=== PATIENT | male | born 1955 | race Caucasian/White ===

== ENCOUNTER → 2016-03-27 | Outpatient (CLI) | payer OTHER ==
[~2016-03-27] MED LIST: AMIT25TA PO; BACL10TA2 PO; LISI10TA4 PO; MOBI7.5T10 PO; NEUR400C PO; PANT40TA2 PO; SERT-141 PO; TIZA4CAP3 PO; ZOFR20TA PO
--- NOTE | 2016-03-27 11:46 | REP ---
Chest two views HISTORY: Pneumonia Comparison: 11/06/2013 The lungs are clear. The heart is normal in size. The pulmonary vasculature is normal in appearance. The bony structure is intact. IMPRESSION: No acute disease. Signed by Pepito Madison MD 03/27/2016 11:37 A
--- NOTE | 2016-03-27 12:18 | REP ---
LEFT SHOULDER, THREE VIEWS: HISTORY: Pneumonia. There is no acute fracture or dislocation. The joint spaces are normal in appearance. IMPRESSION: There is no acute fracture or dislocation. Signed by Pepito Madison MD 03/27/2016 12:37 P
== END ==
LOC: M RAD 10:55
PROVIDERS: ATTEND Family Medicine
DX: J15.9 Unspecified bacterial pneumonia (principal); M12.812 Other specific arthropathies, not elsewhere classified, left shoulder

== ENCOUNTER → 2016-04-01 | Outpatient (CLI) | payer OTHER ==
[2016-04-01 13:43] LABS: FOLATE 12.6 NG/ML
== END ==
LOC: M LAB 11:09
PROVIDERS: ATTEND Psychiatry & Neurology Neurology
DX: R25.1 Tremor, unspecified (principal); E07.9 Disorder of thyroid, unspecified; Z77.018 Contact with and (suspected) exposure to other hazardous metals

== ENCOUNTER → 2016-04-10 | Outpatient (CLI) | payer OTHER ==
--- NOTE | 2016-04-10 13:06 | REP ---
ORBIT, TWO VIEWS: HISTORY: Foreign body. There is no acute fracture or bone lesion. The sinuses are clear. Two 1.2 mm metallic densities are present overlying the left temporal bone. There is no radiopaque intraorbital foreign body. IMPRESSION: There is no radiopaque intraorbital foreign body. Signed by Pepito Madison MD 04/10/2016 01:10 P
== END ==
LOC: M RAD 12:00
PROVIDERS: ATTEND Psychiatry & Neurology Neurology
DX: T15.91XA Foreign body on external eye, part unspecified, right eye, initial encounter (principal); T15.92XA Foreign body on external eye, part unspecified, left eye, initial encounter; X58.XXXA Exposure to other specified factors, initial encounter; Y93.9 Activity, unspecified; Y92.9 Unspecified place or not applicable; Y99.8 Other external cause status

== ENCOUNTER 2016-04-30 10:21 | Emergency (ER) | payer OTHER ==
[2016-04-30 11:28] LABS: BASO % 0.4 % (0.0-1.0); EOS % 0.3 % (0.0-3.0); LARGE UNSTAINED CELL # 0.1 K/mm3 (0.0-0.4); LARGE UNSTAINED CELL % 1.7 % (0.0-4.0); LYMPH # 0.6 K/mm3 (1.5-4.5); LYMPH % 7.5 % (24.0-44.0); MEAN CORPUSCULAR HEMOGLOBIN 31.6 pg (27.0-33.0); MEAN CORPUSCULAR HGB CONC 34.3 g/dl (32.0-36.5); MEAN CORPUSCULAR VOLUME 92.1 fl (80.0-96.0); MONO # 0.3 K/mm3 (0.0-0.8); MONO % 4.6 % (0.0-5.0); NEUTROPHILS # 6.3 K/mm3 (1.8-7.7); NEUTROPHILS % 85.5 % (36.0-66.0); PLATELET COUNT, AUTOMATED 202 k/mm3 (150-450); RED CELL DISTRIBUTION WIDTH 13.4 % (11.5-14.5); WHITE BLOOD COUNT 7.4 K/mm3 (4.0-10.0)
[2016-04-30 11:37] LABS: INR 1.15
--- NOTE | 2016-04-30 11:40 | REP ---
Portable chest x-ray: Single view. History: Cough. Comparison study March 27, 2016. Findings: EKG electrodes are seen. There is a zone of linear opacity in the right base. This may be plate-like atelectasis. Remaining lung wagoner are clear. Pleural angles are sharp. Heart is not enlarged. Pulmonary vasculature is not increased. No bony abnormality is seen. Impression: Linear plate-like atelectasis right base. Otherwise no acute disease. Signed by Darrion Cunha MD 04/30/2016 12:25 P
[2016-04-30 11:43] LABS: ALBUMIN 3.7 GM/DL (3.2-5.2); ALBUMIN/GLOBULIN RATIO 1.12 (1.00-1.93); BILIRUBIN,DIRECT 0.2 MG/DL (0.0-0.2); CREATININE FOR GFR 1.41 MG/DL (0.70-1.30); GLOMERULAR FILTRATION RATE 54.6 (>49)
[2016-04-30] MEDS ORDERED: LevoFLOXacin 500 MG TABLET As Ordered ONE (14:25)
--- NOTE | 2016-04-30 14:35 | EDDOCDS ---
Physician Documentation [facility] Name: Filippo Sung Age: 60 yrs Sex: Male : 1955 Arrival Date: 04/30/2016 Time: 10:21 Bed 14 Private MD: Grayson Brooks Disposition: 04/30/16 14:23 Discharged to Home/Self Care. Impression: Fever, unspecified, Pneumonia due to other specified bacteria. - Condition is Stable. - Discharge Instructions: Fever, Adult, Pneumonia, Adult, [id number]. - Prescriptions for Doxycycline Hyclate 100 mg Oral Tablet - take 1 tablet by ORAL route every 12 hours; 20 tablet. - Medication Reconciliation, Local Pharmacy Hours form. - Follow up: Grayson Brooks; When: Call to arrange an appointment; Reason: Continuance of care. - Problem is new. - Symptoms have improved. Historical: - Allergies: No known drug Allergies; - Home Meds: 1. gabapentin 600 mg oral tab 3 times per day 2. baclofen 20 mg Oral tab 1 tab 4 times per day 3. sertraline 50 mg oral tab 1 tab once daily 4. tizanidine 4 mg oral cap 1 cap 3 times per day 5. pantoprazole 40 mg oral TbEC 1 tab once daily 6. ondansetron HCl 4 mg Oral tab every 4 hours 7. amitriptyline 25 mg Oral tab 1 tab once daily 8. meloxicam 15 mg oral tab 1 tab once daily - PMHx: Arthritis; Chronic Back pain; Depression; GERD; - PSHx: lymph node removal; right middle finger trigger release and scar tissue removal; - Social history: Smoking status: Patient uses tobacco products, heavy tobacco smoker. No barriers to communication noted, The patient speaks fluent Dutch. - Family history: Not pertinent. - : The pt / caregiver states he / she is not on anticoagulants. Home medication list is obtained from the patient. - Exposure Risk Screening:: None identified. Vital Signs: 04/30 10:23 BP 93 / 58; Pulse 98; Resp 16; Temp 101.4(O); Pulse Ox 92% on R/A; Weight 75.75 kg / elp 167 lbs (R); Height 5 ft. 8 in. (172.72 cm) (R); 10:53 BP 90 / 54 (auto/); srm 10:55 Pulse 84 MON; Resp 18; Pulse Ox 95% on R/A; srm 11:22 Pulse 88 MON; Pulse Ox 94% ; srm 11:23 BP 78 / 51 (auto/); srm 11:32 Pulse 86 MON; Resp 18; Pulse Ox 95% on 3 lpm NC; srm 11:34 BP 97 / 62 (auto/); srm 11:53 BP 99 / 56 (auto/); srm 11:53 Pulse 86 MON; Resp 18; Pulse Ox 93% on 3 lpm NC; srm 12:54 Temp 99.8(O); srm 14:11 Pulse 84 MON; Resp 18; Pulse Ox 95% ; srm 14:12 BP 116 / 60 (auto/); srm 14:33 Resp 18; Temp 99(O); Pulse Ox 94% on R/A; srm 10:23 Body Mass Index 25.39 (75.75 kg, 172.72 cm) elp MDM: 10:55 -Blood Culture (Adults Only), peripheral from different site, or from device/port/PICC fg etc. if present ordered. 10:55 Molded Goods Operator/Pulse Ox/q 15 min VS ordered. fg 10:55 Oxygen at 4L/Min NC or Home dosage ordered. fg 10:55 Strep Screen, Nursing ordered. fg 10:55 Intake and Output Hourly ordered. fg 10:55 IV Saline Lock ordered. fg 10:55 NS 0.9% 1000 ml IV at bolus once ordered. fg 10:56 CBC with Diff Ordered. EDMS 10:56 Lactic Acid (Cagle tube on ice) Ordered. EDMS 10:56 Liver Profile Ordered. EDMS 10:56 MED Profile Ordered. EDMS 10:56 PT/INR Ordered. EDMS 10:56 PTT Ordered. EDMS 10:56 Urinalysis Ordered. EDMS 10:57 -Blood Culture Ordered. EDMS 10:57 Urine Culture Ordered. EDMS 10:57 -Influenza A&B Rapid Antigen - Nose Ordered. EDMS 10:57 Chest, 1 View Ordered. EDMS 10:57 ECG WITH READING ER PHYS+CARDIAG ordered. EDMS 11:08 -Blood Culture (Adults Only), peripheral from different site, or from device/port/PICC deg etc. if present complete. 11:09 BLOOD CULTURES Ordered. EDMS 11:22 GATS (NEGATIVE STREP SCREEN) Ordered. EDMS 11:51 Financial registration complete. lg 12:14 [facility] Payment Agreement was scanned into [employer] and attached to record. lg 14:17 levofloxacin 500 mg PO once ordered. Administered Medications: 11:22 Drug: NS 0.9% 1000 ml [sodium chloride 0.9 % intravenous solution] Route: IV; Rate: srm bolus; Site: right forearm; 12:50 Follow up: IV Status: Completed infusion; IV Intake: 1000ml srm 14:33 Drug: levofloxacin 500 mg [levofloxacin 500 mg tablet (1 tabs)] Route: PO; srm Signatures: Dispatcher [employer] EDMS Margot Alanis RN RN Richa Duncan, Electroencephalograph Technician Unit deg Rosaura Silver RN RN srm Ganter, LoriLee, Catracho Reg lg Arabella Dow MD MD The chart was reviewed and I authenticate all verbal orders and agree with the evaluation and treatment provided.Corrections: (The following items were deleted from the chart) 11:17 10:55 Set up for triple lumen central Iine placement ordered. srm 11:23 10:55 Large bore IV x 2 ordered. srm 12:03 10:55 Call Respiratory ordered. srm Attachments: 12:14 [facility] Payment Agreement lg MTDD
--- NOTE | 2016-04-30 14:36 | EDDOCDS ---
Nurse's Notes [facility] Name: Filippo Sung Age: 60 yrs Sex: Male : 1955 Arrival Date: 04/30/2016 Time: 10:21 Bed 14 Private MD: Grayson Brooks Diagnosis: Fever, unspecified;Pneumonia due to other specified bacteria Presentation: 04/30 10:27 Presenting complaint: Patient states: he was sent from Pain Management because he has a kcs fever. States he has been sick for 2 weeks - vomiting, vomiting bile and coughing. Adult Sepsis Screening: The patient does not have new or worsening altered mentation. Patient's respiratory rate is less than 22. Systolic blood pressure is less than or equal to 100 (1 point). Patient has a qSOFA score of 1- Negative Sepsis Screen. Patient has fever/chills- Positive Sepsis Screen. Patient made ANATOLIY Level 2. Patient placed in exam room. Charge nurse notified. Suicide/Homicide risk assessment- the patient denies having any suicidal and/or homicidal ideations and does not present with any other emotional, behavioral or mental health complaints. Status: Patient is not a sales and service technician or dependent. Transition of care: patient was received from pain management. 10:27 Acuity: ANATOLIY Level 3 kcs 10:27 Method Of Arrival: Walkin/Carried/Asstd kcs 10:36 Acuity level changed due to meets SIRS criteria or has positive Sepsis Screening. kcs 10:36 Acuity: ANATOLIY Level 2 kcs Triage Assessment: 10:33 General: Appears ill, unkempt, well developed, well nourished, Behavior is cooperative, kcs pleasant. Pain: Location: right hip - chronic and chest when he coughs Pain currently is 9 out of 10 on a pain scale. HIV screening NA for this visit Offered previously. Neurological: Level of Consciousness is awake, alert. Respiratory: Airway is patent Respiratory effort is even, unlabored, Respiratory pattern is regular, symmetrical. Derm: Skin is intact, is healthy with good turgor, Skin is dry, Skin is normal. Historical: - Allergies: No known drug Allergies; - Home Meds: 1. gabapentin 600 mg oral tab 3 times per day 2. baclofen 20 mg Oral tab 1 tab 4 times per day 3. sertraline 50 mg oral tab 1 tab once daily 4. tizanidine 4 mg oral cap 1 cap 3 times per day 5. pantoprazole 40 mg oral TbEC 1 tab once daily 6. ondansetron HCl 4 mg Oral tab every 4 hours 7. amitriptyline 25 mg Oral tab 1 tab once daily 8. meloxicam 15 mg oral tab 1 tab once daily - PMHx: Arthritis; Chronic Back pain; Depression; GERD; - PSHx: lymph node removal; right middle finger trigger release and scar tissue removal; - Social history: Smoking status: Patient uses tobacco products, heavy tobacco smoker. No barriers to communication noted, The patient speaks fluent Macedonian. - Family history: Not pertinent. - : The pt / caregiver states he / she is not on anticoagulants. Home medication list is obtained from the patient. - Exposure Risk Screening:: None identified. Screenin:23 Infection Control. elp 11:17 Screening information is obtained from the patient. Screening information is obtained srm from the patient. Fall risk: No risks identified. Assistance ADL's: requires no assistance with activities of daily living. Abuse/DV Screen: The patient / caregiver reports he/she is: not in a situation that causes fear, pain or injury. Nutritional screening: No deficits noted. home support is adequate. 14:33 Advance Directives: There is no active DNR order. srm Assessment: 11:17 General: Appears in no apparent distress, Behavior is appropriate for age, cooperative. srm Neurological: No deficits noted. Cardiovascular: Rhythm is sinus rhythm. Respiratory: Airway is patent Respiratory effort is even, unlabored, Breath sounds are clear bilaterally. productive cough. GI: Abdomen is non- distended Bowel sounds present X 4 quads. Derm: No deficits noted. 12:17 General: Appears in no apparent distress, Behavior is appropriate for age, cooperative. srm Neurological: No deficits noted. EENT: No deficits noted. Cardiovascular: Rhythm is sinus rhythm. Respiratory: Airway is patent Respiratory effort is even, unlabored, loose congested cough. GI: No deficits noted. : No deficits noted. Musculoskeletal: No deficits noted. 12:53 Reassessment: Patient appears in no apparent distress at this time. wants a sandwich. srm 14:09 General: Appears in no apparent distress, Behavior is appropriate for age, cooperative, srm sitting up on stretcher. color pink turgor elastic mm resp easy loose congested cough. awaiting md medellin eval and dispo. 14:33 Respiratory: Breath sounds are clear bilaterally. [facility] Vital Signs: 10:23 BP 93 / 58; Pulse 98; Resp 16; Temp 101.4(O); Pulse Ox 92% on R/A; Weight 75.75 kg (R); elp Height 5 ft. 8 in. (172.72 cm) (R); 10:53 BP 90 / 54 (auto/); srm 10:55 Pulse 84 MON; Resp 18; Pulse Ox 95% on R/A; srm 11:22 Pulse 88 MON; Pulse Ox 94% ; srm 11:23 BP 78 / 51 (auto/); srm 11:32 Pulse 86 MON; Resp 18; Pulse Ox 95% on 3 lpm NC; srm 11:34 BP 97 / 62 (auto/); srm 11:53 BP 99 / 56 (auto/); srm 11:53 Pulse 86 MON; Resp 18; Pulse Ox 93% on 3 lpm NC; srm 12:54 Temp 99.8(O); srm 14:11 Pulse 84 MON; Resp 18; Pulse Ox 95% ; srm 14:12 BP 116 / 60 (auto/); srm 14:33 Resp 18; Temp 99(O); Pulse Ox 94% on R/A; srm 10:23 Body Mass Index 25.39 (75.75 kg, 172.72 cm) el Vitals: 10:23 Log In Time: April 30, 2016 at 10:19. elp 11:22 Strep Screen is obtained and tested: Negative, a GATSNEG culture is ordered in [facility] and sent. ED Course: 10:23 Patient visited by Estelle Covrarubias PCA. elp 10:23 Grayson Brooks is Private Physician. elp 10:23 Patient moved to Waiting elp 10:24 Patient visited by Estelle Covarrubias PCA. elp 10:26 Patient moved to Pre RCE elp 10:28 Triage Initiated kcs 10:33 Patient wearing mask. kcs 10:37 Patient moved to 14 kcs 10:54 Arabella Dow MD is Attending Physician. fg 11:03 Patient visited by Arabella Dow MD. fg 11:05 EKG done. (by ED staff). Reviewed by Arabella Dow MD. dem1 11:06 Pt greeted and oriented to ED. Patient advised of names of staff involved in care, dem1 location of call [place], wait times and NPO status. Patient has correct armband on for positive identification. Placed in gown. Bed in low position. Call light in reach. Side rails up X2. air sampling and monitoring on. Pulse ox on. NIBP on. 11:07 Patient visited by Heather Guevara. dem1 11:08 CBC with Diff Sent. srm 11:08 Lactic Acid (Cagle tube on ice) Sent. srm 11:08 Liver Profile Sent. srm 11:08 MED Profile Sent. srm 11:08 PT/INR Sent. srm 11:08 PTT Sent. srm 11:17 The patient / caregiver is instructed regarding the plan of care and ED course. srm 11:17 BLOOD CULTURES Sent. srm 11:17 -Influenza A&B Rapid Antigen - Nose Sent. srm 11:17 Inserted saline lock: 20 gauge in right forearm and blood collected. The patient srm tolerated the procedure well. 11:18 Patient visited by Rosaura Silver RN. srm 11:23 Patient visited by Rosaura Silver RN. srm 11:23 GATS (NEGATIVE STREP SCREEN) Sent. srm 11:23 Urine Culture Sent. srm 11:23 O2 via nasal cannula \T\ 3L/min. srm 11:45 Chest, 1 View Returned. EDMS 12:14 [facility] Payment Agreement was scanned into [employer] and attached to record. lg 12:18 Patient visited by Rosaura Silver RN. srm 12:34 Urinalysis Sent. srm 12:35 Patient visited by Rosaura Silver RN. srm 12:51 Patient visited by Rosaura Silver RN. srm 12:54 Patient visited by Rosaura Silver RN. srm 13:33 Patient visited by Kristin Rabago RN. mk4 14:14 ED physician to see patient. srm 14:14 Patient visited by Rosaura Silver RN. srm 14:23 Grayson Brooks is Referral Physician. fg 14:33 Discontinued lock intact, bleeding controlled, pressure dressing applied, No srm redness/swelling at site. No procedures done that require assistance. Administered Medications: 11:22 Drug: NS 0.9% 1000 ml [sodium chloride 0.9 % intravenous solution] Route: IV; Rate: srm bolus; Site: right forearm; 12:50 Follow up: IV Status: Completed infusion; IV Intake: 1000ml srm 14:33 Drug: levofloxacin 500 mg [levofloxacin 500 mg tablet (1 tabs)] Route: PO; srm Intake: 12:50 IV: 1000.00ml (NS); Total: 1000.00ml. srm 12:50 IV: 1000.00ml; Total: 2000.00ml. srm Output: 12:50 Urine: 200.00ml (Voided); Total: 200.00ml. srm Order Results: Lab Order: CBC with Diff; SPEC'M 04/30/16 11:02 Test: WHITE BLOOD COUNT; Value: 7.4; Range: 4.0-10.0; Units: K/mm3; Status: F Test: RED BLOOD COUNT; Value: 4.42; Range: 4.30-6.10; Units: M/mm3; Status: F Test: HEMOGLOBIN; Value: 14.0; Range: 14.0-18.0; Units: g/dl; Status: F Test: HEMATOCRIT; Value: 40.7; Range: 42.0-52.0; Abnormal: Below low normal; Units: %; Status: F Test: MEAN CORPUSCULAR VOLUME; Value: 92.1; Range: 80.0-96.0; Units: fl; Status: F Test: MEAN CORPUSCULAR HEMOGLOBIN; Value: 31.6; Range: 27.0-33.0; Units: pg; Status: F Test: MEAN CORPUSCULAR HGB CONC; Value: 34.3; Range: 32.0-36.5; Units: g/dl; Status: F Test: RED CELL DISTRIBUTION WIDTH; Value: 13.4; Range: 11.5-14.5; Units: %; Status: F Test: PLATELET COUNT, AUTOMATED; Value: 202; Range: 150-450; Units: k/mm3; Status: F Test: NEUTROPHILS %; Value: 85.5; Range: 36.0-66.0; Abnormal: Above high normal; Units: %; Status: F Test: LYMPH %; Value: 7.5; Range: 24.0-44.0; Abnormal: Below low normal; Units: %; Status: F Test: MONO %; Value: 4.6; Range: 0.0-5.0; Units: %; Status: F Test: EOS %; Value: 0.3; Range: 0.0-3.0; Units: %; Status: F Test: BASO %; Value: 0.4; Range: 0.0-1.0; Units: %; Status: F Test: LARGE UNSTAINED CELL %; Value: 1.7; Range: 0.0-4.0; Units: %; Status: F Test: NEUTROPHILS #; Value: 6.3; Range: 1.8-7.7; Units: K/mm3; Status: F Test: LYMPH #; Value: 0.6; Range: 1.5-4.5; Abnormal: Below low normal; Units: K/mm3; Status: F Test: MONO #; Value: 0.3; Range: 0.0-0.8; Units: K/mm3; Status: F Test: EOS #; Value: 0.0; Range: 0.0-0.50; Units: K/mm3; Status: F Test: BASO #; Value: 0.0; Range: 0.0-0.2; Units: K/mm3; Status: F Test: LARGE UNSTAINED CELL #; Value: 0.1; Range: 0.0-0.4; Units: K/mm3; Status: F Lab Order: Lactic Acid (Cagle tube on ice); SPEC' 04/30/16 11:02 Test: LACTIC ACID SEPSIS PROTOCOL; Value: 1.8; Range: 0.4-2.0; Units: MMOL/L; Status: F Lab Order: Liver Profile; [facility]' 04/30/16 11:02 Test: AST/SGOT; Value: 26; Range: 15-37; Units: U/L; Status: F Test: ALT/SGPT; Value: 25; Range: 12-78; Units: U/L; Status: F Test: ALKALINE PHOSPHATASE; Value: 91; Range: 45-117; Units: U/L; Status: F Test: BILIRUBIN,TOTAL; Value: 1.0; Range: 0.2-1.0; Units: MG/DL; Status: F Test: BILIRUBIN,DIRECT; Value: 0.2; Range: 0.0-0.2; Units: MG/DL; Status: F Test: TOTAL PROTEIN; Value: 7.0; Range: 6.4-8.2; Units: GM/DL; Status: F Test: ALBUMIN; Value: 3.7; Range: 3.2-5.2; Units: GM/DL; Status: F Test: ALBUMIN/GLOBULIN RATIO; Value: 1.12; Range: 1.00-1.93; Status: F Lab Order: MED Profile; SPEC'M 04/30/16 11:02 Test: GLUCOSE, FASTING; Value: 107; Range: 80-110; Units: MG/DL; Status: F Test: BLOOD UREA NITROGEN; Value: 21; Range: 7-18; Abnormal: Above high normal; Units: MG/DL; Status: F Test: CREATININE FOR GFR; Value: 1.41; Range: 0.70-1.30; Abnormal: Above high normal; Units: MG/DL; Status: F Test: GLOMERULAR FILTRATION RATE; Value: 54.6; Range: >49; Status: F Test: SODIUM LEVEL; Value: 135; Range: 136-145; Abnormal: Below low normal; Units: MEQ/L; Status: F Test: POTASSIUM SERUM; Value: 4.0; Range: 3.5-5.1; Units: MEQ/L; Status: F Test: CHLORIDE LEVEL; Value: 100; Range: 98-107; Units: MEQ/L; Status: F Test: CARBON DIOXIDE LEVEL; Value: 26; Range: 21-32; Units: MEQ/L; Status: F Test: ANION GAP; Value: 9; Range: 8-16; Units: MEQ/L; Status: F Test: CALCIUM LEVEL; Value: 8.0; Range: 8.8-10.2; Abnormal: Below low normal; Units: MG/DL; Status: F Test Note: ; Units are mL/min/1.73 m2 Chronic Kidney Disease Staging per NKF: Stage I & II GFR >=60 Normal to Mildly Decreased Stage III GFR 30-59 Moderately Decreased Stage IV GFR 15-29 Severely Decreased Stage V GFR <15 Very Little GFR Left ESRD GFR <15 on CERTIFIED SUBSTANCE ABUSE COUNSELOR Lab Order: PT/INR; SPEC'04/30/16 11:02 Test: PROTHROMBIN TIME; Value: 14.8; Range: 12.3-14.5; Abnormal: Above high normal; Units: SECONDS; Status: F Test: INR; Value: 1.15; Status: F Test Note: ; THERAPUTIC HUMAN INR VALUES INDICATIONS NORMAL RANGES PROPHYLAXIS/TREATMENT OF: VENOUS THROMBOSIS 2.0-3.0 PULMONARY EMBOLISM 2.0-3.0 PREVENTION OF SYSTEMIC EMBOLISM FROM: TISSUE HEART VALVES 2.0-3.0 ACUTE MYOCARDIAL INFARCTION 2.0-3.0 VALVULAR HEART DISEASE 2.0-3.0 ATRIAL FIBRILLATION 2.0-3.0 MECHANICAL VALVES(HIGH RISK) 2.5-3.5 RECURRENT MYOCARDIAL INFARCTION 2.5-3.5 Lab Order: PTT; SPEC'M 04/30/16 11:02 Test: PARTIAL THROMBOPLASTIN TIME; Value: 40.4; Range: 26.6-37.1; Abnormal: Above high normal; Units: SECONDS; Status: F Lab Order: Urinalysis; SPEC'M 04/30/16 12:32 Test: APPEARANCE, URINE; Value: HAZY; Range: CLEAR; Status: F Test: COLOR, URINE; Value: ZOILA; Range: YELLOW; Status: F Test: PH,URINE; Value: 5.0; Range: 5.0-9.0; Units: UNITS; Status: F Test: SPECIFIC GRAVITY URINE AUTO; Value: 1.023; Range: 1.002-1.035; Status: F Test: PROTEIN, URINE AUTO; Value: NEGATIVE; Range: NEGATIVE; Units: mg/dL; Status: F Test: GLUCOSE, URINE (UA) AUTO; Value: NEGATIVE; Range: NEGATIVE; Units: mg/dL; Status: F Test: KETONE, URINE AUTO; Value: TRACE; Range: NEGATIVE; Abnormal: Above high normal; Units: mg/dL; Status: F Test: UROBILINOGEN, URINE AUTO; Value: 0.2; Range: 0.0-2.0; Units: mg/dL; Status: F Test: BILIRUBIN, URINE AUTO; Value: NEGATIVE; Range: NEGATIVE; Status: F Test: NITRITE, URINE AUTO; Value: NEGATIVE; Range: NEGATIVE; Status: F Test: LEUKOCYTE ESTERASE, URINE AUTO; Value: NEGATIVE; Range: NEGATIVE; Status: F Test: BLOOD, URINE BLOOD; Value: NEGATIVE; Range: NEGATIVE; Status: F Test: WBC, URINE AUTO; Value: 3; Range: 0-3; Units: /HPF; Status: F Test: RBC, URINE AUTO; Value: 4; Range: 0-3; Abnormal: Above high normal; Units: /HPF; Status: F Test: BACTERIA, URINE AUTO; Value: NEGATIVE; Range: NEGATIVE; Status: F Test: SQUAMOUS EPITHELIAL CELL UR AU; Value: 1; Range: 0-6; Units: /HPF; Status: F Test: MUCUS, URINE; Value: SMALL; Range: NEGATIVE; Status: F Test: HYALINE CAST, URINE AUTO; Value: 5; Range: 0-1; Units: /LPF; Status: F Lab Order: -Influenza A&B Rapid Antigen - Nose; SPEC'M 04/30/16 11:03 Test: INFLUENZA A RAPID SCR by ICA; Value: INFLUENZA A RESULTS NEGATIVE; Status: F Test: INFLUENZA A RAPID SCR by ICA; Value: Comments:; Status: F Test: INFLUENZA B RAPID SCR by ICA; Value: INFLUENZA B RESULTS NEGATIVE; Status: F Test Note: ; The Influenza test is a direct rapid immunoassay for the qualitative detection of Influenza viral antigen. Cell culture (Viral Culture) testing should be considered to confirm NEGATIVE results and to assist in detecting other viruses that can provide similar clinical symptoms. Please contact the lab within 24 hours ([phone]) if confirmatory testing is desired. Radiology Order: Chest, 1 View Test: Chest, 1 View REASON FOR EXAMINATION: Cough; Portable chest x-ray: Single view.; ; History: Cough.; ; Comparison study March 27, 2016.; ; Findings: EKG electrodes are seen. There is a zone of linear opacity in the; right base. This may be plate-like atelectasis. Remaining lung wagoner are; clear. Pleural angles are sharp. Heart is not enlarged. Pulmonary vasculature; is not increased. No bony abnormality is seen.; ; Impression:; ; Linear plate-like atelectasis right base. Otherwise no acute disease.; ; ; Signed by; Darrion Cunha MD 04/30/2016 12:25 P; Outcome: 14:23 Discharge ordered by Provider. fg 14:33 Discharge Assessment: Patient awake, alert and oriented x 3. No cognitive and/or srm functional deficits noted. Patient verbalized understanding of disposition instructions. patient administered narcotics - no. The following High Risk Discharge criteria are identified: None. Discharged to home ambulatory, with significant other. Condition: stable. Discharge instructions given to patient, Instructed on discharge instructions, follow up and referral plans. medication usage, diet, Demonstrated understanding of instructions, medications, Pt was receptive of discharge instructions/ teaching. Prescriptions given X 1. No special radiology studies were completed. Property sent home with patient. 14:34 Patient left the ED. srm Signatures: Dispatcher [employer] Margot Renteria RN RN kcs Michelson, Staci RN RN srm Jane Echevarria, Reg Reg lg Ismael, Heather dem1 Estelle Covarrubias, SUPERINTENDENT INSTITUTION SUPERINTENDENT INSTITUTION Kristin Harry RN RN 4 Arabella Dow MD MD fg Corrections: (The following items were deleted from the chart) 10:37 10:27 Adult Sepsis Screening: The patient does not have new or worsening altered kcs mentation. Patient's respiratory rate is less than 22. Systolic blood pressure is greater than 100. Patient has a qSOFA score of 0- Negative Sepsis Screen. Patient has fever/chills- Positive Sepsis Screen. kcs 10:47 10:27 Adult Sepsis Screening: The patient does not have new or worsening altered kcs mentation. Patient's respiratory rate is less than 22. Systolic blood pressure is less than or equal to 100 (1 point). Patient has a qSOFA score of 0- Negative Sepsis Screen. Patient has fever/chills- Positive Sepsis Screen. Patient made ANATOLIY Level 2. Patient placed in exam room. Charge nurse notified jennifer MTDD
--- NOTE | 2016-05-01 21:01 | ECGEPIP ---
Stationary ECG Study [facility] - ED Test Date: 2016-04-30 Pat Name: KRISTINE BAEZ Department: Room: - Gender: M Debt Management Counselor: leroy : 1955 Requested By: SHANTEL Peterson Order Number: [id number] Reading MD: Katarina Hernandez Measurements Intervals [place] Rate: 90 P: 39 IA: 138 QRS: -36 QRSD: 103 T: 8 QT: 326 QTc: 399 Interpretive Statements SINUS RHYTHM MARKED LEFT AXIS DEVIATION NONSPECIFIC T-WAVE ABNORMALITY NO PRIOR FOR COMPARISON Electronically Signed On 05-01-2016 21:01:25 EST by Katarina Hernandez
--- NOTE | 2016-05-02 15:35 | EDDOCDS ---
Physician Documentation [facility] Name: Filippo Sung Age: 60 yrs Sex: Male : 1955 Arrival Date: 04/30/2016 Time: 10:21 Bed 14 Private MD: Grayson Brooks Disposition: 04/30/16 14:23 Discharged to Home/Self Care. Impression: Fever, unspecified, Pneumonia due to other specified bacteria. - Condition is Stable. - Discharge Instructions: Fever, Adult, Pneumonia, Adult, [id number]. - Prescriptions for Doxycycline Hyclate 100 mg Oral Tablet - take 1 tablet by ORAL route every 12 hours; 20 tablet. - Medication Reconciliation, Local Pharmacy Hours form. - Follow up: Grayson Brooks; When: Call to arrange an appointment; Reason: Continuance of care. - Problem is new. - Symptoms have improved. Historical: - Allergies: No known drug Allergies; - Home Meds: 1. gabapentin 600 mg oral tab 3 times per day 2. baclofen 20 mg Oral tab 1 tab 4 times per day 3. sertraline 50 mg oral tab 1 tab once daily 4. tizanidine 4 mg oral cap 1 cap 3 times per day 5. pantoprazole 40 mg oral TbEC 1 tab once daily 6. ondansetron HCl 4 mg Oral tab every 4 hours 7. amitriptyline 25 mg Oral tab 1 tab once daily 8. meloxicam 15 mg oral tab 1 tab once daily - PMHx: Arthritis; Chronic Back pain; Depression; GERD; - PSHx: lymph node removal; right middle finger trigger release and scar tissue removal; - Social history: Smoking status: Patient uses tobacco products, heavy tobacco smoker. No barriers to communication noted, The patient speaks fluent Bulgarian. - Family history: Not pertinent. - : The pt / caregiver states he / she is not on anticoagulants. Home medication list is obtained from the patient. - Exposure Risk Screening:: None identified. Vital Signs: 04/30 10:23 BP 93 / 58; Pulse 98; Resp 16; Temp 101.4(O); Pulse Ox 92% on R/A; Weight 75.75 kg / elp 167 lbs (R); Height 5 ft. 8 in. (172.72 cm) (R); 10:53 BP 90 / 54 (auto/); srm 10:55 Pulse 84 MON; Resp 18; Pulse Ox 95% on R/A; srm 11:22 Pulse 88 MON; Pulse Ox 94% ; srm 11:23 BP 78 / 51 (auto/); srm 11:32 Pulse 86 MON; Resp 18; Pulse Ox 95% on 3 lpm NC; srm 11:34 BP 97 / 62 (auto/); srm 11:53 BP 99 / 56 (auto/); srm 11:53 Pulse 86 MON; Resp 18; Pulse Ox 93% on 3 lpm NC; srm 12:54 Temp 99.8(O); srm 14:11 Pulse 84 MON; Resp 18; Pulse Ox 95% ; srm 14:12 BP 116 / 60 (auto/); srm 14:33 Resp 18; Temp 99(O); Pulse Ox 94% on R/A; srm 10:23 Body Mass Index 25.39 (75.75 kg, 172.72 cm) elp MDM: 10:55 -Blood Culture (Adults Only), peripheral from different site, or from device/port/PICC fg etc. if present ordered. 10:55 Data Management Consultant/Pulse Ox/q 15 min VS ordered. fg 10:55 Oxygen at 4L/Min NC or Home dosage ordered. fg 10:55 Strep Screen, Nursing ordered. fg 10:55 Intake and Output Hourly ordered. fg 10:55 IV Saline Lock ordered. fg 10:55 NS 0.9% 1000 ml IV at bolus once ordered. fg 10:56 CBC with Diff Ordered. EDMS 10:56 Lactic Acid (Cagle tube on ice) Ordered. EDMS 10:56 Liver Profile Ordered. EDMS 10:56 MED Profile Ordered. EDMS 10:56 PT/INR Ordered. EDMS 10:56 PTT Ordered. EDMS 10:56 Urinalysis Ordered. EDMS 10:57 -Blood Culture Ordered. EDMS 10:57 Urine Culture Ordered. EDMS 10:57 -Influenza A&B Rapid Antigen - Nose Ordered. EDMS 10:57 Chest, 1 View Ordered. EDMS 10:57 ECG WITH READING ER PHYS+CARDIAG ordered. EDMS 11:08 -Blood Culture (Adults Only), peripheral from different site, or from device/port/PICC deg etc. if present complete. 11:09 BLOOD CULTURES Ordered. EDMS 11:22 GATS (NEGATIVE STREP SCREEN) Ordered. EDMS 11:51 Financial registration complete. lg 12:14 [facility] Payment Agreement was scanned into [employer] and attached to record. lg 14:17 levofloxacin 500 mg PO once ordered. 05/01 12:27 T-Sheet-- Draft Copy was scanned into [employer] and attached to record. gb 12:27 ECG/EKG was scanned into [employer] and attached to record. gb Administered Medications: 04/30 11:22 Drug: NS 0.9% 1000 ml [sodium chloride 0.9 % intravenous solution] Route: IV; Rate: srm bolus; Site: right forearm; 12:50 Follow up: IV Status: Completed infusion; IV Intake: 1000ml srm 14:33 Drug: levofloxacin 500 mg [levofloxacin 500 mg tablet (1 tabs)] Route: PO; srm Signatures: Dispatcher [employer] EDMS Margot Alanis, RN RN kcs Richa Salazar, Water And Fire Technician Unit deg Rosaura Silver RN RN srm Denia Marrero, Reg Reg Jane Leon, Reg Reg lg Arabella Dow MD MD The chart was reviewed and I authenticate all verbal orders and agree with the evaluation and treatment provided.Corrections: (The following items were deleted from the chart) 11:17 10:55 Set up for triple lumen central Iine placement ordered. srm 11:23 10:55 Large bore IV x 2 ordered. srm 12:03 10:55 Call Respiratory ordered. srm Attachments: 12:14 [facility] Payment Agreement 05/01 12:27 T-Sheet-- Draft Copy gb 12:27 ECG/EKG gb Chart Complete MTDD
--- NOTE | 2016-05-02 15:35 | EDDOCDS ---
Nurse's Notes [facility] Name: Kristine Sung Age: 60 yrs Sex: Male : 1955 Arrival Date: 04/30/2016 Time: 10:21 Bed 14 Private MD: Grayson Brooks Diagnosis: Fever, unspecified;Pneumonia due to other specified bacteria Presentation: 04/30 10:27 Presenting complaint: Patient states: he was sent from Pain Management because he has a kcs fever. States he has been sick for 2 weeks - vomiting, vomiting bile and coughing. Adult Sepsis Screening: The patient does not have new or worsening altered mentation. Patient's respiratory rate is less than 22. Systolic blood pressure is less than or equal to 100 (1 point). Patient has a qSOFA score of 1- Negative Sepsis Screen. Patient has fever/chills- Positive Sepsis Screen. Patient made ANATOLIY Level 2. Patient placed in exam room. Charge nurse notified. Suicide/Homicide risk assessment- the patient denies having any suicidal and/or homicidal ideations and does not present with any other emotional, behavioral or mental health complaints. 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 Transition of care: patient was received from pain management. 10:27 Acuity: ANATOLIY Level 3 kcs 10:27 Method Of Arrival: Walkin/Carried/Asstd kcs 10:36 Acuity level changed due to meets SIRS criteria or has positive Sepsis Screening. kcs 10:36 Acuity: ANATOLIY Level 2 kcs Triage Assessment: 10:33 General: Appears ill, unkempt, well developed, well nourished, Behavior is cooperative, kcs pleasant. Pain: Location: right hip - chronic and chest when he coughs Pain currently is 9 out of 10 on a pain scale. HIV screening NA for this visit Offered previously. Neurological: Level of Consciousness is awake, alert. Respiratory: Airway is patent Respiratory effort is even, unlabored, Respiratory pattern is regular, symmetrical. Derm: Skin is intact, is healthy with good turgor, Skin is dry, Skin is normal. Historical: - Allergies: No known drug Allergies; - Home Meds: 1. gabapentin 600 mg oral tab 3 times per day 2. baclofen 20 mg Oral tab 1 tab 4 times per day 3. sertraline 50 mg oral tab 1 tab once daily 4. tizanidine 4 mg oral cap 1 cap 3 times per day 5. pantoprazole 40 mg oral TbEC 1 tab once daily 6. ondansetron HCl 4 mg Oral tab every 4 hours 7. amitriptyline 25 mg Oral tab 1 tab once daily 8. meloxicam 15 mg oral tab 1 tab once daily - PMHx: Arthritis; Chronic Back pain; Depression; GERD; - PSHx: lymph node removal; right middle finger trigger release and scar tissue removal; - Social history: Smoking status: Patient uses tobacco products, heavy tobacco smoker. No barriers to communication noted, The patient speaks fluent Mauritian. - Family history: Not pertinent. - : The pt / caregiver states he / she is not on anticoagulants. Home medication list is obtained from the patient. - Exposure Risk Screening:: None identified. Screenin:23 Infection Control. elp 11:17 Screening information is obtained from the patient. Screening information is obtained srm from the patient. Fall risk: No risks identified. Assistance ADL's: requires no assistance with activities of daily living. Abuse/DV Screen: The patient / caregiver reports he/she is: not in a situation that causes fear, pain or injury. Nutritional screening: No deficits noted. home support is adequate. 14:33 Advance Directives: There is no active DNR order. srm Assessment: 11:17 General: Appears in no apparent distress, Behavior is appropriate for age, cooperative. srm Neurological: No deficits noted. Cardiovascular: Rhythm is sinus rhythm. Respiratory: Airway is patent Respiratory effort is even, unlabored, Breath sounds are clear bilaterally. productive cough. GI: Abdomen is non- distended Bowel sounds present X 4 quads. Derm: No deficits noted. 12:17 General: Appears in no apparent distress, Behavior is appropriate for age, cooperative. srm Neurological: No deficits noted. EENT: No deficits noted. Cardiovascular: Rhythm is sinus rhythm. Respiratory: Airway is patent Respiratory effort is even, unlabored, loose congested cough. GI: No deficits noted. : No deficits noted. Musculoskeletal: No deficits noted. 12:53 Reassessment: Patient appears in no apparent distress at this time. wants a sandwich. srm 14:09 General: Appears in no apparent distress, Behavior is appropriate for age, cooperative, srm sitting up on stretcher. color pink turgor elastic mm resp easy loose congested cough. awaiting md medellin eval and dispo. 14:33 Respiratory: Breath sounds are clear bilaterally. [facility] Vital Signs: 10:23 BP 93 / 58; Pulse 98; Resp 16; Temp 101.4(O); Pulse Ox 92% on R/A; Weight 75.75 kg (R); elp Height 5 ft. 8 in. (172.72 cm) (R); 10:53 BP 90 / 54 (auto/); srm 10:55 Pulse 84 MON; Resp 18; Pulse Ox 95% on R/A; srm 11:22 Pulse 88 MON; Pulse Ox 94% ; srm 11:23 BP 78 / 51 (auto/); srm 11:32 Pulse 86 MON; Resp 18; Pulse Ox 95% on 3 lpm NC; srm 11:34 BP 97 / 62 (auto/); srm 11:53 BP 99 / 56 (auto/); srm 11:53 Pulse 86 MON; Resp 18; Pulse Ox 93% on 3 lpm NC; srm 12:54 Temp 99.8(O); srm 14:11 Pulse 84 MON; Resp 18; Pulse Ox 95% ; srm 14:12 BP 116 / 60 (auto/); srm 14:33 Resp 18; Temp 99(O); Pulse Ox 94% on R/A; srm 10:23 Body Mass Index 25.39 (75.75 kg, 172.72 cm) el Vitals: 10:23 Log In Time: April 30, 2016 at 10:19. elp 11:22 Strep Screen is obtained and tested: Negative, a GATSNEG culture is ordered in [facility] and sent. ED Course: 10:23 Patient visited by Estelle Covarrubias PCA. elp 10:23 Grayson Brooks is Private Physician. elp 10:23 Patient moved to Waiting elp 10:24 Patient visited by Estelle Covarrubias PCA. elp 10:26 Patient moved to Pre RCE elp 10:28 Triage Initiated kcs 10:33 Patient wearing mask. kcs 10:37 Patient moved to 14 kcs 10:54 Arabella Dow MD is Attending Physician. fg 11:03 Patient visited by Arabella Dow MD. fg 11:05 EKG done. (by ED staff). Reviewed by Arabella Dow MD. dem1 11:06 Pt greeted and oriented to ED. Patient advised of names of staff involved in care, dem1 location of call [place], wait times and NPO status. Patient has correct armband on for positive identification. Placed in gown. Bed in low position. Call light in reach. Side rails up X2. clinical research monitor on. Pulse ox on. NIBP on. 11:07 Patient visited by Heather Guevara. dem1 11:08 CBC with Diff Sent. srm 11:08 Lactic Acid (Cagle tube on ice) Sent. srm 11:08 Liver Profile Sent. srm 11:08 MED Profile Sent. srm 11:08 PT/INR Sent. srm 11:08 PTT Sent. srm 11:17 The patient / caregiver is instructed regarding the plan of care and ED course. srm 11:17 BLOOD CULTURES Sent. srm 11:17 -Influenza A&B Rapid Antigen - Nose Sent. srm 11:17 Inserted saline lock: 20 gauge in right forearm and blood collected. The patient srm tolerated the procedure well. 11:18 Patient visited by Rosaura Silver RN. srm 11:23 Patient visited by Rosaura Silver RN. srm 11:23 GATS (NEGATIVE STREP SCREEN) Sent. srm 11:23 Urine Culture Sent. srm 11:23 O2 via nasal cannula \T\ 3L/min. srm 11:45 Chest, 1 View Returned. EDMS 12:14 [facility] Payment Agreement was scanned into Faculte and attached to record. lg 12:18 Patient visited by Rosaura Silver RN. srm 12:34 Urinalysis Sent. srm 12:35 Patient visited by Rosaura Silver RN. srm 12:51 Patient visited by Rosaura Silver RN. srm 12:54 Patient visited by Rosaura Silver RN. srm 13:33 Patient visited by Kristin Rabago RN. mk4 14:14 ED physician to see patient. srm 14:14 Patient visited by Rosaura Silver RN. srm 14:23 Grayson Brooks is Referral Physician. fg 14:33 Discontinued lock intact, bleeding controlled, pressure dressing applied, No srm redness/swelling at site. No procedures done that require assistance. 05/01 12:27 T-Sheet-- Draft Copy was scanned into Faculte and attached to record. gb 12:27 ECG/EKG was scanned into [employer]te and attached to record. gb 21:17 EKG-ADULT Returned. EDMS Administered Medications: 04/30 11:22 Drug: NS 0.9% 1000 ml [sodium chloride 0.9 % intravenous solution] Route: IV; Rate: srm bolus; Site: right forearm; 12:50 Follow up: IV Status: Completed infusion; IV Intake: 1000ml srm 14:33 Drug: levofloxacin 500 mg [levofloxacin 500 mg tablet (1 tabs)] Route: PO; srm Intake: 12:50 IV: 1000.00ml (NS); Total: 1000.00ml. srm 12:50 IV: 1000.00ml; Total: 2000.00ml. srm Output: 12:50 Urine: 200.00ml (Voided); Total: 200.00ml. srm Order Results: Lab Order: -Blood Culture; SPEC'M 04/30/16 11:02 Test: BLOOD CULTURE; Value: No growth after 24 hours . All specimens observed; Status: F Test: BLOOD CULTURE; Value: for 5 days. Results final at that time.; Status: F Test: BLOOD CULTURE; Value: No Growth after 48 hours. All Specimens observed; Status: F Test: BLOOD CULTURE; Value: for 7 days. Results final at that time.; Status: F Lab Order: CBC with Diff; SPEC'M 04/30/16 11:02 Test: WHITE BLOOD COUNT; Value: 7.4; Range: 4.0-10.0; Units: K/mm3; Status: F Test: RED BLOOD COUNT; Value: 4.42; Range: 4.30-6.10; Units: M/mm3; Status: F Test: HEMOGLOBIN; Value: 14.0; Range: 14.0-18.0; Units: g/dl; Status: F Test: HEMATOCRIT; Value: 40.7; Range: 42.0-52.0; Abnormal: Below low normal; Units: %; Status: F Test: MEAN CORPUSCULAR VOLUME; Value: 92.1; Range: 80.0-96.0; Units: fl; Status: F Test: MEAN CORPUSCULAR HEMOGLOBIN; Value: 31.6; Range: 27.0-33.0; Units: pg; Status: F Test: MEAN CORPUSCULAR HGB CONC; Value: 34.3; Range: 32.0-36.5; Units: g/dl; Status: F Test: RED CELL DISTRIBUTION WIDTH; Value: 13.4; Range: 11.5-14.5; Units: %; Status: F Test: PLATELET COUNT, AUTOMATED; Value: 202; Range: 150-450; Units: k/mm3; Status: F Test: NEUTROPHILS %; Value: 85.5; Range: 36.0-66.0; Abnormal: Above high normal; Units: %; Status: F Test: LYMPH %; Value: 7.5; Range: 24.0-44.0; Abnormal: Below low normal; Units: %; Status: F Test: MONO %; Value: 4.6; Range: 0.0-5.0; Units: %; Status: F Test: EOS %; Value: 0.3; Range: 0.0-3.0; Units: %; Status: F Test: BASO %; Value: 0.4; Range: 0.0-1.0; Units: %; Status: F Test: LARGE UNSTAINED CELL %; Value: 1.7; Range: 0.0-4.0; Units: %; Status: F Test: NEUTROPHILS #; Value: 6.3; Range: 1.8-7.7; Units: K/mm3; Status: F Test: LYMPH #; Value: 0.6; Range: 1.5-4.5; Abnormal: Below low normal; Units: K/mm3; Status: F Test: MONO #; Value: 0.3; Range: 0.0-0.8; Units: K/mm3; Status: F Test: EOS #; Value: 0.0; Range: 0.0-0.50; Units: K/mm3; Status: F Test: BASO #; Value: 0.0; Range: 0.0-0.2; Units: K/mm3; Status: F Test: LARGE UNSTAINED CELL #; Value: 0.1; Range: 0.0-0.4; Units: K/mm3; Status: F Lab Order: Lactic Acid (Cagle tube on ice); SPEC'04/30/16 11:02 Test: LACTIC ACID SEPSIS PROTOCOL; Value: 1.8; Range: 0.4-2.0; Units: MMOL/L; Status: F Lab Order: Liver Profile; SPEC'04/30/16 11:02 Test: AST/SGOT; Value: 26; Range: 15-37; Units: U/L; Status: F Test: ALT/SGPT; Value: 25; Range: 12-78; Units: U/L; Status: F Test: ALKALINE PHOSPHATASE; Value: 91; Range: 45-117; Units: U/L; Status: F Test: BILIRUBIN,TOTAL; Value: 1.0; Range: 0.2-1.0; Units: MG/DL; Status: F Test: BILIRUBIN,DIRECT; Value: 0.2; Range: 0.0-0.2; Units: MG/DL; Status: F Test: TOTAL PROTEIN; Value: 7.0; Range: 6.4-8.2; Units: GM/DL; Status: F Test: ALBUMIN; Value: 3.7; Range: 3.2-5.2; Units: GM/DL; Status: F Test: ALBUMIN/GLOBULIN RATIO; Value: 1.12; Range: 1.00-1.93; Status: F Lab Order: [facility]; [facility] 04/30/16 11:02 Test: GLUCOSE, FASTING; Value: 107; Range: 80-110; Units: MG/DL; Status: F Test: BLOOD UREA NITROGEN; Value: 21; Range: 7-18; Abnormal: Above high normal; Units: MG/DL; Status: F Test: CREATININE FOR GFR; Value: 1.41; Range: 0.70-1.30; Abnormal: Above high normal; Units: MG/DL; Status: F Test: GLOMERULAR FILTRATION RATE; Value: 54.6; Range: >49; Status: F Test: SODIUM LEVEL; Value: 135; Range: 136-145; Abnormal: Below low normal; Units: MEQ/L; Status: F Test: POTASSIUM SERUM; Value: 4.0; Range: 3.5-5.1; Units: MEQ/L; Status: F Test: CHLORIDE LEVEL; Value: 100; Range: 98-107; Units: MEQ/L; Status: F Test: CARBON DIOXIDE LEVEL; Value: 26; Range: 21-32; Units: MEQ/L; Status: F Test: ANION GAP; Value: 9; Range: 8-16; Units: MEQ/L; Status: F Test: CALCIUM LEVEL; Value: 8.0; Range: 8.8-10.2; Abnormal: Below low normal; Units: MG/DL; Status: F Test Note: ; Units are mL/min/1.73 m2 Chronic Kidney Disease Staging per NKF: Stage I & II GFR >=60 Normal to Mildly Decreased Stage III GFR 30-59 Moderately Decreased Stage IV GFR 15-29 Severely Decreased Stage V GFR <15 Very Little GFR Left ESRD GFR <15 on CLIENT DEVELOPMENT MANAGER Lab Order: PT/INR; [facility] 04/30/16 11:02 Test: PROTHROMBIN TIME; Value: 14.8; Range: 12.3-14.5; Abnormal: Above high normal; Units: SECONDS; Status: F Test: INR; Value: 1.15; Status: F Test Note: ; THERAPUTIC HUMAN INR VALUES INDICATIONS NORMAL RANGES PROPHYLAXIS/TREATMENT OF: VENOUS THROMBOSIS 2.0-3.0 PULMONARY EMBOLISM 2.0-3.0 PREVENTION OF SYSTEMIC EMBOLISM FROM: TISSUE HEART VALVES 2.0-3.0 ACUTE MYOCARDIAL INFARCTION 2.0-3.0 VALVULAR HEART DISEASE 2.0-3.0 ATRIAL FIBRILLATION 2.0-3.0 MECHANICAL VALVES(HIGH RISK) 2.5-3.5 RECURRENT MYOCARDIAL INFARCTION 2.5-3.5 Lab Order: PTT; [facility] 04/30/16 11:02 Test: PARTIAL THROMBOPLASTIN TIME; Value: 40.4; Range: 26.6-37.1; Abnormal: Above high normal; Units: SECONDS; Status: F Lab Order: Urinalysis; [facility] 04/30/16 12:32 Test: APPEARANCE, URINE; Value: HAZY; Range: CLEAR; Status: F Test: COLOR, URINE; Value: ZOILA; Range: YELLOW; Status: F Test: PH,URINE; Value: 5.0; Range: 5.0-9.0; Units: UNITS; Status: F Test: SPECIFIC GRAVITY URINE AUTO; Value: 1.023; Range: 1.002-1.035; Status: F Test: PROTEIN, URINE AUTO; Value: NEGATIVE; Range: NEGATIVE; Units: mg/dL; Status: F Test: GLUCOSE, URINE (UA) AUTO; Value: NEGATIVE; Range: NEGATIVE; Units: mg/dL; Status: F Test: KETONE, URINE AUTO; Value: TRACE; Range: NEGATIVE; Abnormal: Above high normal; Units: mg/dL; Status: F Test: UROBILINOGEN, URINE AUTO; Value: 0.2; Range: 0.0-2.0; Units: mg/dL; Status: F Test: BILIRUBIN, URINE AUTO; Value: NEGATIVE; Range: NEGATIVE; Status: F Test: NITRITE, URINE AUTO; Value: NEGATIVE; Range: NEGATIVE; Status: F Test: LEUKOCYTE ESTERASE, URINE AUTO; Value: NEGATIVE; Range: NEGATIVE; Status: F Test: BLOOD, URINE BLOOD; Value: NEGATIVE; Range: NEGATIVE; Status: F Test: WBC, URINE AUTO; Value: 3; Range: 0-3; Units: /HPF; Status: F Test: RBC, URINE AUTO; Value: 4; Range: 0-3; Abnormal: Above high normal; Units: /HPF; Status: F Test: BACTERIA, URINE AUTO; Value: NEGATIVE; Range: NEGATIVE; Status: F Test: SQUAMOUS EPITHELIAL CELL UR AU; Value: 1; Range: 0-6; Units: /HPF; Status: F Test: MUCUS, URINE; Value: SMALL; Range: NEGATIVE; Status: F Test: HYALINE CAST, URINE AUTO; Value: 5; Range: 0-1; Units: /LPF; Status: F Lab Order: Urine Culture; SPEC'M 04/30/16 12:32 Test: URINE CULTURE; Value: <EXTERNAL COMMENT eCWMed> FULL REPORT IN LAB NOTES (eCW and Medent).; Status: F Test: URINE CULTURE; Value: URINE CULTURE RESULT NO GROWTH CLINICAL SIGNIFICANCE 1 ORGANISM; Status: F Lab Order: -Influenza A&B Rapid Antigen - Nose; SPEC'M 04/30/16 11:03 Test: INFLUENZA A RAPID SCR by ICA; Value: INFLUENZA A RESULTS NEGATIVE; Status: F Test: INFLUENZA A RAPID SCR by ICA; Value: Comments:; Status: F Test: INFLUENZA B RAPID SCR by ICA; Value: INFLUENZA B RESULTS NEGATIVE; Status: F Test Note: ; The Influenza test is a direct rapid immunoassay for the qualitative detection of Influenza viral antigen. Cell culture (Viral Culture) testing should be considered to confirm NEGATIVE results and to assist in detecting other viruses that can provide similar clinical symptoms. Please contact the lab within 24 hours ([phone]) if confirmatory testing is desired. Lab Order: BLOOD CULTURES; SPEC'M 04/30/16 11:15 Test: BLOOD CULTURE; Value: No growth after 24 hours . All specimens observed; Status: F Test: BLOOD CULTURE; Value: for 5 days. Results final at that time.; Status: F Test: BLOOD CULTURE; Value: No Growth after 48 hours. All Specimens observed; Status: F Test: BLOOD CULTURE; Value: for 7 days. Results final at that time.; Status: F Lab Order: GATS (NEGATIVE STREP SCREEN); SPEC'M 04/30/16 11:15 Test: GATS CULTURE (NEG STREP SCR); Value: GATS RESULT NEGATIVE FOR STREP PYOGENES (GROUP A); Status: F Test: GATS CULTURE (NEG STREP SCR); Value: <EXTERNAL COMMENT eCWMed> FULL REPORT IN LAB NOTES (eCW and Medent).; Status: F Radiology Order: Chest, 1 View Test: Chest, 1 View REASON FOR EXAMINATION: Cough; Portable chest x-ray: Single view.; ; History: Cough.; ; Comparison study March 27, 2016.; ; Findings: EKG electrodes are seen. There is a zone of linear opacity in the; right base. This may be plate-like atelectasis. Remaining lung wagoner are; clear. Pleural angles are sharp. Heart is not enlarged. Pulmonary vasculature; is not increased. No bony abnormality is seen.; ; Impression:; ; Linear plate-like atelectasis right base. 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 fg 14:33 Discharge Assessment: Patient awake, alert and oriented x 3. No cognitive and/or srm functional deficits noted. Patient verbalized understanding of disposition instructions. patient administered narcotics - no. The following High Risk Discharge criteria are identified: None. Discharged to home ambulatory, with significant other. Condition: stable. Discharge instructions given to patient, Instructed on discharge instructions, follow up and referral plans. medication usage, diet, Demonstrated understanding of instructions, medications, Pt was receptive of discharge instructions/ teaching. Prescriptions given X 1. No special radiology studies were completed. Property sent home with patient. 14:34 Patient left the ED. srm Signatures: Dispatcher [employer] EDMS Margot Alanis RN RN kcs Michelson, Staci, RN RN srm Elida, Denia, Reg Reg gb Ganter, Jane, Reg Reg lg Ismael, Rajesheishia dem1 Estelle Covarrubias, TRAFFIC CONTROL SPECIALIST TRAFFIC CONTROL SPECIALIST Kristin Harry RN RN mk4 Arabella Dow MD MD fg Corrections: (The following items were deleted from the chart) 10:37 10:27 Adult Sepsis Screening: The patient does not have new or worsening altered kcs mentation. Patient's respiratory rate is less than 22. Systolic blood pressure is greater than 100. Patient has a qSOFA score of 0- Negative Sepsis Screen. Patient has fever/chills- Positive Sepsis Screen. kcs 10:47 10:27 Adult Sepsis Screening: The patient does not have new or worsening altered kcs mentation. Patient's respiratory rate is less than 22. Systolic blood pressure is less than or equal to 100 (1 point). Patient has a qSOFA score of 0- Negative Sepsis Screen. Patient has fever/chills- Positive Sepsis Screen. Patient made ANATOLIY Level 2. Patient placed in exam room. Charge nurse notified kcs Chart Complete MTDD
--- NOTE | 2016-05-02 15:35 | EDDOCDS ---
Physician Documentation [facility] Name: Filippo Sung Age: 60 yrs Sex: Male : 1955 Arrival Date: 04/30/2016 Time: 10:21 Bed 14 Private MD: Grayson Brooks Disposition: 04/30/16 14:23 Discharged to Home/Self Care. Impression: Fever, unspecified, Pneumonia due to other specified bacteria. - Condition is Stable. - Discharge Instructions: Fever, Adult, Pneumonia, Adult, [id number]. - Prescriptions for Doxycycline Hyclate 100 mg Oral Tablet - take 1 tablet by ORAL route every 12 hours; 20 tablet. - Medication Reconciliation, Local Pharmacy Hours form. - Follow up: Grayson Brooks; When: Call to arrange an appointment; Reason: Continuance of care. - Problem is new. - Symptoms have improved. Historical: - Allergies: No known drug Allergies; - Home Meds: 1. gabapentin 600 mg oral tab 3 times per day 2. baclofen 20 mg Oral tab 1 tab 4 times per day 3. sertraline 50 mg oral tab 1 tab once daily 4. tizanidine 4 mg oral cap 1 cap 3 times per day 5. pantoprazole 40 mg oral TbEC 1 tab once daily 6. ondansetron HCl 4 mg Oral tab every 4 hours 7. amitriptyline 25 mg Oral tab 1 tab once daily 8. meloxicam 15 mg oral tab 1 tab once daily - PMHx: Arthritis; Chronic Back pain; Depression; GERD; - PSHx: lymph node removal; right middle finger trigger release and scar tissue removal; - Social history: Smoking status: Patient uses tobacco products, heavy tobacco smoker. No barriers to communication noted, The patient speaks fluent Mozambican. - Family history: Not pertinent. - : The pt / caregiver states he / she is not on anticoagulants. Home medication list is obtained from the patient. - Exposure Risk Screening:: None identified. Vital Signs: 04/30 10:23 BP 93 / 58; Pulse 98; Resp 16; Temp 101.4(O); Pulse Ox 92% on R/A; Weight 75.75 kg / elp 167 lbs (R); Height 5 ft. 8 in. (172.72 cm) (R); 10:53 BP 90 / 54 (auto/); srm 10:55 Pulse 84 MON; Resp 18; Pulse Ox 95% on R/A; srm 11:22 Pulse 88 MON; Pulse Ox 94% ; srm 11:23 BP 78 / 51 (auto/); srm 11:32 Pulse 86 MON; Resp 18; Pulse Ox 95% on 3 lpm NC; srm 11:34 BP 97 / 62 (auto/); srm 11:53 BP 99 / 56 (auto/); srm 11:53 Pulse 86 MON; Resp 18; Pulse Ox 93% on 3 lpm NC; srm 12:54 Temp 99.8(O); srm 14:11 Pulse 84 MON; Resp 18; Pulse Ox 95% ; srm 14:12 BP 116 / 60 (auto/); srm 14:33 Resp 18; Temp 99(O); Pulse Ox 94% on R/A; srm 10:23 Body Mass Index 25.39 (75.75 kg, 172.72 cm) elp MDM: 10:55 -Blood Culture (Adults Only), peripheral from different site, or from device/port/PICC fg etc. if present ordered. 10:55 Finish Specialist/Pulse Ox/q 15 min VS ordered. fg 10:55 Oxygen at 4L/Min NC or Home dosage ordered. fg 10:55 Strep Screen, Nursing ordered. fg 10:55 Intake and Output Hourly ordered. fg 10:55 IV Saline Lock ordered. fg 10:55 NS 0.9% 1000 ml IV at bolus once ordered. fg 10:56 CBC with Diff Ordered. EDMS 10:56 Lactic Acid (Cagle tube on ice) Ordered. EDMS 10:56 Liver Profile Ordered. EDMS 10:56 MED Profile Ordered. EDMS 10:56 PT/INR Ordered. EDMS 10:56 PTT Ordered. EDMS 10:56 Urinalysis Ordered. EDMS 10:57 -Blood Culture Ordered. EDMS 10:57 Urine Culture Ordered. EDMS 10:57 -Influenza A&B Rapid Antigen - Nose Ordered. EDMS 10:57 Chest, 1 View Ordered. EDMS 10:57 ECG WITH READING ER PHYS+CARDIAG ordered. EDMS 11:08 -Blood Culture (Adults Only), peripheral from different site, or from device/port/PICC deg etc. if present complete. 11:09 BLOOD CULTURES Ordered. EDMS 11:22 GATS (NEGATIVE STREP SCREEN) Ordered. EDMS 11:51 Financial registration complete. lg 12:14 [facility] Payment Agreement was scanned into [employer] and attached to record. lg 14:17 levofloxacin 500 mg PO once ordered. 05/01 12:27 T-Sheet-- Draft Copy was scanned into [employer] and attached to record. gb 12:27 ECG/EKG was scanned into [employer] and attached to record. gb Administered Medications: 04/30 11:22 Drug: NS 0.9% 1000 ml [sodium chloride 0.9 % intravenous solution] Route: IV; Rate: srm bolus; Site: right forearm; 12:50 Follow up: IV Status: Completed infusion; IV Intake: 1000ml srm 14:33 Drug: levofloxacin 500 mg [levofloxacin 500 mg tablet (1 tabs)] Route: PO; srm Signatures: Dispatcher [employer] EDMS Margot Alanis, RN RN kcs Richa Salazar, Chrome Tanner Unit deg Rosaura Silver RN RN srm Denia Marrero, Reg Reg Jane Leon, Reg Reg lg Arabella Dow MD MD The chart was reviewed and I authenticate all verbal orders and agree with the evaluation and treatment provided.Corrections: (The following items were deleted from the chart) 11:17 10:55 Set up for triple lumen central Iine placement ordered. srm 11:23 10:55 Large bore IV x 2 ordered. srm 12:03 10:55 Call Respiratory ordered. srm Attachments: 12:14 [facility] Payment Agreement 05/01 12:27 T-Sheet-- Draft Copy gb 12:27 ECG/EKG gb Chart Complete MTDD
== END 2016-04-30 14:34 | disposition home or self-care (01) ==
LOC: M ED 10:21
DX: J18.9 Pneumonia, unspecified organism (principal); M16.11 Unilateral primary osteoarthritis, right hip; G89.29 Other chronic pain; M54.9 Dorsalgia, unspecified; F32.9 Major depressive disorder, single episode, unspecified; K21.9 Gastro-esophageal reflux disease without esophagitis; Z79.899 Other long term (current) drug therapy; F17.210 Nicotine dependence, cigarettes, uncomplicated

== ENCOUNTER → 2016-04-30 | Outpatient (CLI) | payer OTHER | LOC: M PAIN 09:20 | PROVIDERS: ATTEND Anesthesiology | DX: Z53.29 Procedure and treatment not carried out because of patient's decision for other reasons (principal) ==

== ENCOUNTER → 2016-05-19 | Outpatient (CLI) | payer OTHER | LOC: M LAB 11:09 | PROVIDERS: ATTEND Family Medicine | DX: Z12.5 Encounter for screening for malignant neoplasm of prostate (principal) ==

== ENCOUNTER → 2016-07-01 | Outpatient (CLI) | payer OTHER ==
[~2016-07-01] MED LIST changes: -SERT-141 PO; +SERT50TA PO
--- NOTE | 2016-07-13 00:23 | ECWPNPC ---
PATIENT NAME: KRISTINE BAEZ : 1955 GENDER: MALE VISIT DATE: 07/01/2016 DISCHARGE DATE: 07/01/16 1508 VISIT LOCKED DATE TIME: PHYSICIAN: ROLANDA NAPOLES RESOURCE: ROLANDA NAPOLES REASON FOR APPOINTMENT 1. BACK PAIN HISTORY OF PRESENT ILLNESS HISTORY OF PRESENT ILLNESS: PAIN THE PATIENT DESCRIBES THE PAIN... 60 YEAR OLD MALE PATIENT WITH HISTORY OF CHRONIC LOW BACK PAIN. PATIENT DESCRIBES THE PAIN SHARP AND HAVING IT ALL THE TIME WITH A PAIN SCORE OF 10/10. PATIENT RECEIVED A DIAGNOSTIC FACET BLOCK ON 04/03/16 AND STATES THAT HE HAD OVER 50% RELIEF FOR 1 DAY. CURRENTLY THE PATIENT IS USING GABAPENTIN, BACLOFEN, TIZANIDINE, MELOXICAM AND AMITRIPTYLINE WHICH THE PATIENT STATES KEEPS HIM MOBILE AND FUNCTIONAL. MR. BAEZ STATES THAT ANY TYPE OF ACTIVITY INCREASES THE PAIN IN HIS LOWER BACK AND AT THIS TIME THE ONLY THING THAT AIDS IN PAIN RELIEF IS INTERVENTIONS, MEDICATION AND HOT BATHS. PATIENT DENIES UNEXPLAINABLE WEIGHT LOSS, FEVER, CHILLS, NEW CHANGES ON HIS URINARY OR BOWEL CONTROL. FALL RISK SCREENING: SCREENING :NO FALLS IN THE PAST YEAR CURRENT MEDICATIONS TAKING GABAPENTIN 600 MG TABLET 1 TABLET ORALLY THREE TIMES A DAY TAKING BACLOFEN 20 MG TABLET 1 TABLET WITH FOOD OR MILK ORALLY BID TAKING TIZANIDINE HCL 4 MG TABLET 1 TABLET NEEDED ORALLY BEFORE BEDTIME FOR SPASMS AND PAIN, NOTES: 04/02 10PM TAKING SERTRALINE HCL 50 MG TABLET 1 TABLET ORALLY ONCE A DAY, NOTES: 04/02 10PM TAKING LISINOPRIL 10 MG TABLET 1 TABLET ORALLY ONCE A DAY, NOTES: 1 MO04/02 10PM TAKING PANTOPRAZOLE SODIUM 40 MG TABLET DELAYED RELEASE 1 TABLET ORALLY ONCE A DAY TAKING MELOXICAM 7.5 MG TABLET 1 TABLET ORALLY ONCE A DAY PRN FOR PAIN, NOTES: 04/02 10PM TAKING AMITRIPTYLINE HCL 25 MG TABLET 1 TABLET AT BEDTIME ORALLY ONCE A DAY NOT-TAKING ZOFRAN 4 MG TABLET 2 TABLETS ORALLY QID PRN MEDICATION LIST REVIEWED AND RECONCILED WITH THE PATIENT PAST MEDICAL HISTORY HYPERTENSION ALLERGIES N.K.D.A. SURGICAL HISTORY REMOVAL LYMPH NODES FROM UNDER LEFT LUNG 20 YRS AGO TRIGGER FINGER RELEASE RIGHT HAND 2015 REMOVAL SCAR TISSUE RIGHT HAND 10/2015 FAMILY HISTORY NO FAMILY HISTORY DOCUMENTED. SOCIAL HISTORY GENERAL: PAIN CLINIC PFS, CLERGY, PUBLIC HEALTH REFERRALS CLERGY REFERRAL NEEDED?NO WAS THE PROVIDER NOTIFIED OF ANY PERTINENT INFO?NO PFS REFERRAL NEEDED?NO PUBLIC HEALTH REFERRAL NEEDED?NO PATIENT: ____. HOSPITALIZATION/MAJOR DIAGNOSTIC PROCEDURE NO HOSPITALIZATION HISTORY. REVIEW OF SYSTEMS CONSTITUTIONAL: ANY CHANGE IN YOUR MEDICAL CONDITION? NO . CHILLS NO . FEVER NO . INFECTION: DO YOU HAVE NEW INFECTIONS? NO . DO YOU HAVE HISTORY OF MRSA? NO . MUSCULOSKELETAL: ANY NEW PATTERNS OF PAIN OR NUMBNESS? YES PT REPORTS INCREASE IN INTENSITY OF PAIN . GASTROENTEROLOGY: ANY NEW CHANGE IN BOWEL CONTROL? NO . GENITOURINARY: ANY NEW CHANGE IN BLADDER CONTROL? NO . IS THERE A CHANCE YOU COULD BE ? NO . HEMATOLOGY/LYMPH: DO YOU TAKE ANY BLOOD THINNERS? (FOR EXAMPLE- COUMADIN, PLAVIX, AGGRENOX, PLATEL, PRADAXA, OR XARELTO) NO . WHEN WAS YOUR LAST DOSE? DATE: TIME: . NEUROLOGY: HAVE YOU FALLEN IN THE PAST 6 MONTHS? NO . ANY NEW EXTREMITY NUMBNESS OR WEAKNESS? NO . CARDIOLOGY: DO YOU HAVE A PACEMAKER OR DEFIBRILLATOR? NO . RESPIRATORY: HAVE YOU BEEN SICK IN THE PAST WEEK? NO . FEVER NO . FLU LIKE SYMPTOMS? NO . COUGH NO . INTEGUMENTARY: DO YOU HAVE ANY RASHES OR OPEN SORES? NO . ALLERGIC/IMMUNO: ARE YOU ALLERGIC TO SHELLFISH OR IV DYE? NO . ANY NEW ALLERGIES? NO . PSYCHIATRIC: DO YOU HAVE THOUGHTS OF HURTING YOURSELF OR SOMEONE ELSE? NO . ARE YOU ABUSED, NEGLECTED, OR IN AN UNSAFE ENVIRONMENT? NO . ENDOCRINOLOGY: ARE YOU DIABETIC? NO . OTHER: DO YOU NEED ANY PRESCRIPTIONS? YES . IF YES, PLEASE LIST: ____MELOXICAM . ANY NEW PROBLEMS WITH YOUR MEDICATIONS? NO . WHEN DID YOU LAST EAT? ____ . WHEN DID YOU LAST DRINK? ____ . WHAT DID YOU LAST DRINK? ____ . NAME OF PERSON DRIVING YOU HOME? ____ . DO YOU HAVE ANY OTHER QUESTIONS OR CONCERNS NO . REVIEWED BY: PROVIDER: ROLANDA NAPOLES MD . VITAL SIGNS WT 168 LBS, HT 67 IN, BMI 26.31 INDEX, BP 128/74 MM HG, HR 69 /MIN, RR 16 /MIN, TEMP 98.6 F, OXYGEN SAT % 95, SAFE IN ENV? (Y/N) YES, NA INITIALS AW 1406, REVIEWED BY: SUSANA. EXAMINATION : PATIENT IS ALERT O X 3 AND COOPERATIVE. THERE IS TENDERNESS IN THE LOWER BACK AND IN THE PARASPINAL MUSCLE GROUP AT THE RIGHT SIDE. MRI SPINE DONE ON 01/25/13 SHOWS FACET ARTHROPATHY CHANGES. ASSESSMENTS SPONDYLOSIS WITHOUT MYELOPATHY OR RADICULOPATHY, LUMBAR REGION - M47.816 (PRIMARY) SPONDYLOSIS WITHOUT MYELOPATHY OR RADICULOPATHY, LUMBOSACRAL REGION - M47.817 TREATMENT SPONDYLOSIS WITHOUT MYELOPATHY OR RADICULOPATHY, LUMBAR REGION NOTES: WE DISCUSSED SEVERAL ISSUES WITH MR. BAEZ PAIN MANAGEMENT CASE. AT THIS TIME THE PATIENT WILL CONTINUE WITH THE SAME MEDICATION REGIME. PATIENT WILL RECEIVE A REFILL OF HIS MEDICATION. PATIENT WAS ADVISED TO BRING ALL MEDICATION TO EACH VISIT. PATIENT HAD ADEQUATE RESULTS FROM THE FIRST DIAGNOSTIC TEST AND WE WILL PROCEED WITH THE SECOND DIAGNOSTIC TEST TO CONSIDER RADIOFREQUENCY. WE DISCUSSED THE RISKS, BENEFITS, AND ALTNERATIVES OF THE INJECTION AND THE PATIENT WOULD LIKE TO PROCEED AT THIS TIME. INSTRUCTIONS WERE GIVEN, QUESTIONS WERE ANSWERED, PATIENT REPORTS UNDERSTANDING AND AGREES WITH THE PLAN. I, GHASSAN SHAW, DOCUMENTED THE ABOVE INFORMATION ACTING A SCRIBE FOR DR. NAPOLES. I HAVE REVIEWED THE ABOVE DOCUMENT, WRITTEN BY GHASSAN EVANS AND I VERIFY THAT IT IS ACCURATE. OTHERS REFILL MELOXICAM TABLET, 7.5 MG, 1 TABLET, ORALLY, ONCE A DAY PRN FOR PAIN, 30 DAY(S), 30, REFILLS 2, NOTES: 04/02 10PM REFILL GABAPENTIN TABLET, 600 MG, 1 TABLET, ORALLY, THREE TIMES A DAY, 30 DAY(S), 90, REFILLS 2 REFILL TIZANIDINE HCL TABLET, 4 MG, 1 TABLET NEEDED, ORALLY, BEFORE BEDTIME FOR SPASMS AND PAIN, 30 DAY(S), 30, REFILLS 2, NOTES: 04/02 10PM REFILL BACLOFEN TABLET, 20 MG, 1 TABLET WITH FOOD OR MILK, ORALLY, BID FOR SPASMS AND PAIN, 30 DAY(S), 60, REFILLS 2 PROCEDURE CODES FA211 ESTABILISHED PATIENT [facility] CHARGE G8427 DOC MEDS VERIFIED W/PT OR RE F4220 PAIN ASSESS POS TOOL F/U PLAN DOC DISPOSITION & COMMUNICATION FOLLOW UP LFBD #2 AFTER APPROVAL ELECTRONICALLY SIGNED BY ROLANDA NAPOLES MD ON 07/12/2016 AT 04:43 PM EDT DISCLAIMER : THIS IS A VISIT SUMMARY EXTRACTED FROM THE [employer] CHART. IT IS NOT A COPY OF THE [employer] PROGRESS NOTE. LEONILA
== END ==
LOC: M PAIN 14:00
PROVIDERS: ATTEND Anesthesiology
DX: G89.29 Other chronic pain (principal); M47.816 Spondylosis without myelopathy or radiculopathy, lumbar region; M47.817 Spondylosis without myelopathy or radiculopathy, lumbosacral region; I10 Essential (primary) hypertension; Z79.899 Other long term (current) drug therapy

== ENCOUNTER → 2016-08-03 | Outpatient (CLI) | payer OTHER ==
[~2016-08-03] MED LIST changes: +BUPIVACAINE HCL 0.25% 30 ML VIAL As Ordered ONE; +ISOVUE-M 300 61% 15ML VIAL (Q9967) As Ordered ONE; +LIDOCAINE 1% SDV INJ 30 ML VIAL As Ordered ONE
--- NOTE | 2016-08-03 14:50 | REP ---
PARTIAL LUMBAR SPINE SERIES: Single view. HISTORY: Facet block for pain. 11 seconds of fluoroscopy time is reported. FINDINGS: A single fluoroscopically obtained intraprocedural spot radiograph of the lumbar spine documents needle position and contrast injections associated with lumbar spine facet injection procedure. Signed by Darrion Cunha MD 08/03/2016 03:18 P
--- NOTE | 2016-08-08 23:29 | ECWPNPC ---
PATIENT NAME: KRISTINE BAEZ : 1955 GENDER: MALE VISIT DATE: 08/03/2016 DISCHARGE DATE: 08/03/16 1434 VISIT LOCKED DATE TIME: PHYSICIAN: ROLANDA NAPOLES RESOURCE: ROLANDA NAPOLES REASON FOR APPOINTMENT 1. RIGHT LFBD #2 HISTORY OF PRESENT ILLNESS HISTORY OF PRESENT ILLNESS: PAIN THE PATIENT DESCRIBES THE PAIN... FALL RISK SCREENING: SCREENING :NO FALLS IN THE PAST YEAR CURRENT MEDICATIONS TAKING MELOXICAM 7.5 MG TABLET 1 TABLET ORALLY ONCE A DAY PRN FOR PAIN, NOTES: 08/03/16 0500 TAKING GABAPENTIN 600 MG TABLET 1 TABLET ORALLY THREE TIMES A DAY, NOTES: 08/03/16 050 TAKING TIZANIDINE HCL 4 MG TABLET 1 TABLET NEEDED ORALLY BEFORE BEDTIME FOR SPASMS AND PAIN, NOTES: 08/02/16 2100 TAKING BACLOFEN 20 MG TABLET 1 TABLET WITH FOOD OR MILK ORALLY BID FOR SPASMS AND PAIN, NOTES: 08/03/16 0500 TAKING SERTRALINE HCL 50 MG TABLET 1 TABLET ORALLY ONCE A DAY, NOTES: 08/03/16 0500 TAKING LISINOPRIL 10 MG TABLET 1 TABLET ORALLY ONCE A DAY, NOTES: 08/03/16 050 TAKING PANTOPRAZOLE SODIUM 40 MG TABLET DELAYED RELEASE 1 TABLET ORALLY ONCE A DAY, NOTES: 08/03/16 050 TAKING AMITRIPTYLINE HCL 25 MG TABLET 1 TABLET AT BEDTIME ORALLY ONCE A DAY, NOTES: 07/31/16 NOT-TAKING ZOFRAN 4 MG TABLET 2 TABLETS ORALLY QID PRN MEDICATION LIST REVIEWED AND RECONCILED WITH THE PATIENT PAST MEDICAL HISTORY HYPERTENSION ALLERGIES N.K.D.A. SURGICAL HISTORY REMOVAL LYMPH NODES FROM UNDER LEFT LUNG 20 YRS AGO TRIGGER FINGER RELEASE RIGHT HAND 2015 REMOVAL SCAR TISSUE RIGHT HAND 10/2015 REVIEW OF SYSTEMS CONSTITUTIONAL: ANY CHANGE IN YOUR MEDICAL CONDITION? NO . CHILLS NO . FEVER NO . INFECTION: DO YOU HAVE NEW INFECTIONS? NO . DO YOU HAVE HISTORY OF MRSA? NO . MUSCULOSKELETAL: ANY NEW PATTERNS OF PAIN OR NUMBNESS? YES. PT C/O BILAT SHOULDER PAIN. PT RATES PAIN 9/10, CONSTANT . GASTROENTEROLOGY: ANY NEW CHANGE IN BOWEL CONTROL? NO . GENITOURINARY: ANY NEW CHANGE IN BLADDER CONTROL? NO . IS THERE A CHANCE YOU COULD BE ? NO . HEMATOLOGY/LYMPH: DO YOU TAKE ANY BLOOD THINNERS? (FOR EXAMPLE- COUMADIN, PLAVIX, AGGRENOX, PLATEL, PRADAXA, OR XARELTO) NO . WHEN WAS YOUR LAST DOSE? DATE: TIME: . NEUROLOGY: HAVE YOU FALLEN IN THE PAST 6 MONTHS? NO . ANY NEW EXTREMITY NUMBNESS OR WEAKNESS? NO . CARDIOLOGY: DO YOU HAVE A PACEMAKER OR DEFIBRILLATOR? NO . RESPIRATORY: HAVE YOU BEEN SICK IN THE PAST WEEK? NO . FEVER NO . FLU LIKE SYMPTOMS? NO . COUGH NO . INTEGUMENTARY: DO YOU HAVE ANY RASHES OR OPEN SORES? NO . ALLERGIC/IMMUNO: ARE YOU ALLERGIC TO SHELLFISH OR IV DYE? NO . ANY NEW ALLERGIES? NO . PSYCHIATRIC: DO YOU HAVE THOUGHTS OF HURTING YOURSELF OR SOMEONE ELSE? NO . ARE YOU ABUSED, NEGLECTED, OR IN AN UNSAFE ENVIRONMENT? NO . ENDOCRINOLOGY: ARE YOU DIABETIC? NO . OTHER: DO YOU NEED ANY PRESCRIPTIONS? NO . IF YES, PLEASE LIST: ____ . ANY NEW PROBLEMS WITH YOUR MEDICATIONS? NO . WHEN DID YOU LAST EAT? ____08/02/16 @ 2100 . WHEN DID YOU LAST DRINK? ____08/03/16 0500 . WHAT DID YOU LAST DRINK? ____[employer] . NAME OF PERSON DRIVING YOU HOME? ____[facility] [employer] [facility] . DO YOU HAVE ANY OTHER QUESTIONS OR CONCERNS NO . REVIEWED BY: PROVIDER: . VITAL SIGNS WT 179.0 LBS, HT 67 IN, BMI 28.03 INDEX, BP 157/91 MM HG, HR 60 /MIN, RR 18 /MIN, TEMP 98.2 F, OXYGEN SAT % 94%, SAFE IN ENV? (Y/N) Y, NA INITIALS TL 1154, REVIEWED BY: EM. ASSESSMENTS SPONDYLOSIS WITHOUT MYELOPATHY OR RADICULOPATHY, LUMBAR REGION - M47.816 (PRIMARY) PROCEDURES PN LUMBAR FACET BLOCK DIAGNOSTIC PRE PROCEDURE DIAGNOSIS LUMBAR SPONDYLOSIS POST PROCEDURE DIAGNOSIS LUMBAR SPONDYLOSIS PROCEDURE RIGHT L2-L3 FACET BLOCK DIAGNOSTIC NUMBER [address] 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 I EVALUATED THE PATIENT AND REVIEWED THE CHART. I WENT OVER THE RISKS, ALTERNATIVES, AND BENEFITS ASSOCIATED WITH THIS PROCEDURE. THE PATIENT WOULD LIKE TO PROCEED AND GAVE CONSENT TO PERFORM THE PROCEDURE. AGREED WITH THE PATIENT WE ARE DOING THIS PROCEDURE TO DETERMINE IF THE PATIENT IS A CANDIDATE FOR A RADIOFREQUENCY ABLATION OF THE FACETS JOINTS. THE PATIENT DENIES UNEXPLAINABLE WEIGHT LOSS, FEVER, CHILLS, OR NEW CHANGES IN URINARY OR BOWEL CONTROL DESCRIPTION OF PROCEDURE THE PATIENT WAS BROUGHT TO THE PROCEDURE ROOM AND PLACED IN THE PRONE POSITION. THE LUMBOSACRAL AREA WAS CLEANED WITH CHLORAPREP SOLUTION AND DRAPED ASEPTICALLY. THE PROCEDURE WAS DONE UNDER STERILE CONDITIONS. I CHECKED LATERALITY AND THE LEVEL WHERE THE PROCEDURE WAS GOING TO BE PERFORMED WITH THE PATIENT AND THE SUPPORTING STAFF AT THE MOMENT OF THE TIME OUT IN THE PROCEDURE ROOM. UNDER FLUOROSCOPIC GUIDANCE, TARGETS WERE SELECTED AT THE INTERSECTION OF THE RIGHT TRANSVERSE PROCESS OF L2 AND L3 WITH ITS RESPECTIVE SUPERIOR ARTICULAR PROCESS. LIDOCAINE WAS USED TO NUMB THE SKIN AND THE SUBCUTANEOUS TISSUE BELOW IT. SPINAL NEEDLE, 22-GAUGE WAS ADVANCED UNDER FLUOROSCOPIC GUIDANCE AND FOLLOWING PATIENT FEEDBACK UNTIL THE TARGETS WERE REACHED. POSITION OF THE NEEDLES WAS VERIFIED WITH AP AND LATERAL VIEWS. AFTER PROPER POSITION OF THE NEEDLES WAS ACHIEVED, ISOVUE-M DYE 30% 0.1 ML WAS INJECTED AT EACH SITE SHOWING ADEQUATE SPREAD OF THE DYE. THEN A SOLUTION OF 0.4 ML OF BUPIVACAINE 0.25% WAS INJECTED AT EACH SITE. THERE WAS NO EVIDENCE OF BLOOD, PARESTHESIA OR CEREBROSPINAL FLUID DURING THE PROCEDURE. THE PATIENT WAS SENT TO THE RECOVERY ROOM. THE PATIENT WAS MOVING THE EXTREMITIES AND DOING WELL. THERE WAS NO COMPLICATION DURING THE PROCEDURE. FLUOROSCOPY TIME WAS 11 SECONDS POST PROCEDURE NOTE THE PATIENT WILL DOCUMENT HIS PAIN LEVEL AND RESPONSE TO THIS PROCEDURE EVERY 30 MINUTES. THE PATIENT WILL BE SEEN IN A FOLLOW UP IN THE NEXT FEW WEEKS. FURTHER DETERMINATION FOR HIS CASE WILL BE DONE AT THE NEXT VISIT. INSTRUCTIONS WERE GIVEN, QUESTIONS WERE ANSWERED, AND THE PATIENT EXPRESSED UNDERSTANDING AND AGREED WITH THE PLAN. I, GHASSAN SHAW, DOCUMENTED THE ABOVE INFORMATION ACTING A SCRIBE FOR DR. NAPOLES. I HAVE REVIEWED THE ABOVE DOCUMENT, WRITTEN BY GHASSAN SHAW SCRIBTeto AND I VERIFY THAT IT IS ACCURATE DIAGNOSTIC IMAGING [facility] FACET BLOCK (PAIN)[id number] PROCEDURE CODES 71357 INJ PARAVERT F JNT L/S 1 LEV 6045F RADXPS IN END [id number] PXD DISPOSITION & COMMUNICATION FOLLOW UP 3 WEEKS ELECTRONICALLY SIGNED BY ROLANDA NAPOLES MD ON 08/08/2016 AT 07:22 PM EDT DISCLAIMER : THIS IS A VISIT SUMMARY EXTRACTED FROM THE [employer] CHART. IT IS NOT A COPY OF THE [facility] PROGRESS [facility]. MTDD
== END ==
LOC: M PAIN 11:40
PROVIDERS: ATTEND Anesthesiology
DX: G89.29 Other chronic pain (principal); M47.816 Spondylosis without myelopathy or radiculopathy, lumbar region; I10 Essential (primary) hypertension; M25.511 Pain in right shoulder; M25.512 Pain in left shoulder; Z79.899 Other long term (current) drug therapy

== ENCOUNTER → 2016-08-28 | Outpatient (CLI) | payer OTHER ==
[~2016-08-28] MED LIST changes: -BUPIVACAINE HCL 0.25% 30 ML VIAL As Ordered ONE; -ISOVUE-M 300 61% 15ML VIAL (Q9967) As Ordered ONE; -LIDOCAINE 1% SDV INJ 30 ML VIAL As Ordered ONE
--- NOTE | 2016-08-31 00:03 | ECWPNPC ---
PATIENT NAME: KRISTINE BAEZ : 1955 GENDER: MALE VISIT DATE: 08/28/2016 DISCHARGE DATE: 08/28/16 1408 VISIT LOCKED DATE TIME: PHYSICIAN: ROLANDA NAPOLES RESOURCE: ROLANDA NAPOLES REASON FOR APPOINTMENT 1. BACK-POST FACET HISTORY OF PRESENT ILLNESS HISTORY OF PRESENT ILLNESS: PAIN THE PATIENT DESCRIBES THE PAIN... 60 YEAR OLD MALE PATIENT WITH HISTORY OF CHRONIC BACK PAIN. PATIENT DESCRIBES THE PAIN SHARP AND HAVING IT ALL THE TIME WITH A PAIN SCORE OF 9/10 ON TODAY'S VISIT. PATIENT RECEIVED A RIGHT L2-L3 LUMBAR FACET BLOCK DIAGNOSTIC ON 08/03/2016 AND STATES THAT HE RECEIVED MORE THAN 50 PERCENT IN PAIN RELIEF WITH INCREASE MOBILITY AND FUNCTIONALITY. PATIENT WOULD LIKE TO GO AHEAD AND PROCEED WITH A RADIOFREQUENCY. PATIENT DENIES UNEXPLAINABLE WEIGHT LOSS, FEVER, CHILLS, NEW CHANGES ON HIS URINARY OR BOWEL CONTROL. FALL RISK SCREENING: SCREENING :NO FALLS IN THE PAST YEAR CURRENT MEDICATIONS TAKING MELOXICAM 7.5 MG TABLET 1 TABLET ORALLY ONCE A DAY PRN FOR PAIN TAKING GABAPENTIN 600 MG TABLET 1 TABLET ORALLY THREE TIMES A DAY TAKING TIZANIDINE HCL 4 MG TABLET 1 TABLET NEEDED ORALLY BEFORE BEDTIME FOR SPASMS AND PAIN TAKING BACLOFEN 20 MG TABLET 1 TABLET WITH FOOD OR MILK ORALLY BID FOR SPASMS AND PAIN TAKING SERTRALINE HCL 50 MG TABLET 1 TABLET ORALLY ONCE A DAY TAKING LISINOPRIL 10 MG TABLET 1 TABLET ORALLY ONCE A DAY TAKING PANTOPRAZOLE SODIUM 40 MG TABLET DELAYED RELEASE 1 TABLET ORALLY ONCE A DAY TAKING AMITRIPTYLINE HCL 25 MG TABLET 1 TABLET AT BEDTIME ORALLY ONCE A DAY TAKING PREDNISONE 5 MG TABLET 1 TABLET ORALLY ONCE A DAY NOT-TAKING ZOFRAN 4 MG TABLET 2 TABLETS ORALLY QID PRN MEDICATION LIST REVIEWED AND RECONCILED WITH THE PATIENT PAST MEDICAL HISTORY HYPERTENSION ALLERGIES N.K.D.A. SURGICAL HISTORY REMOVAL LYMPH NODES FROM UNDER LEFT LUNG 20 YRS AGO TRIGGER FINGER RELEASE RIGHT HAND 2015 REMOVAL SCAR TISSUE RIGHT HAND 10/2015 FAMILY HISTORY NO FAMILY HISTORY DOCUMENTED. SOCIAL HISTORY GENERAL: TOBACCO USE ARE YOU A:CURRENT SMOKER HOW MANY CIGARETTES A DAY DO YOU SMOKE?21-30 HOW SOON AFTER YOU WAKE UP DO YOU SMOKE YOUR FIRST CIGARETTE?WITHIN 5 MIN HOW OFTEN DO YOU SMOKE CIGARETTES?EVERY DAY PATIENT COUNSELED ON THE DANGERS OF TOBACCO USE AND URGED TO QUIT:08/28/2016 ARE YOU INTERESTED IN QUITTING?NOT READY TO QUIT COUNSELED THE PATIENT ON SMOKING EFFECTS, EDUCATION [id number]/2017 PAIN CLINIC PFS, CLERGY, PUBLIC HEALTH REFERRALS CLERGY REFERRAL NEEDED?NO WAS THE PROVIDER NOTIFIED OF ANY PERTINENT INFO?NO PFS REFERRAL NEEDED?NO PUBLIC HEALTH REFERRAL NEEDED?NO PATIENT: ____. HOSPITALIZATION/MAJOR DIAGNOSTIC PROCEDURE NO HOSPITALIZATION HISTORY. REVIEW OF SYSTEMS CONSTITUTIONAL: ANY CHANGE IN YOUR MEDICAL CONDITION? NO . CHILLS NO . FEVER NO . INFECTION: DO YOU HAVE NEW INFECTIONS? NO . DO YOU HAVE HISTORY OF MRSA? NO . MUSCULOSKELETAL: ANY NEW PATTERNS OF PAIN OR NUMBNESS? NO . GASTROENTEROLOGY: ANY NEW CHANGE IN BOWEL CONTROL? NO . GENITOURINARY: ANY NEW CHANGE IN BLADDER CONTROL? NO . IS THERE A CHANCE YOU COULD BE ? NO . HEMATOLOGY/LYMPH: DO YOU TAKE ANY BLOOD THINNERS? (FOR EXAMPLE- COUMADIN, PLAVIX, AGGRENOX, PLATEL, PRADAXA, OR XARELTO) NO . WHEN WAS YOUR LAST DOSE? DATE: TIME: . NEUROLOGY: HAVE YOU FALLEN IN THE PAST 6 MONTHS? YES, 3 WEEKS AGO DUE TO DIZZINESS . ANY NEW EXTREMITY NUMBNESS OR WEAKNESS? NO . CARDIOLOGY: DO YOU HAVE A PACEMAKER OR DEFIBRILLATOR? NO . RESPIRATORY: HAVE YOU BEEN SICK IN THE PAST WEEK? NO . FEVER NO . FLU LIKE SYMPTOMS? NO . COUGH NO . INTEGUMENTARY: DO YOU HAVE ANY RASHES OR OPEN SORES? NO . ALLERGIC/IMMUNO: ARE YOU ALLERGIC TO SHELLFISH OR IV DYE? NO . ANY NEW ALLERGIES? NO . PSYCHIATRIC: DO YOU HAVE THOUGHTS OF HURTING YOURSELF OR SOMEONE ELSE? NO . ARE YOU ABUSED, NEGLECTED, OR IN AN UNSAFE ENVIRONMENT? NO . ENDOCRINOLOGY: ARE YOU DIABETIC? NO . OTHER: DO YOU NEED ANY PRESCRIPTIONS? NO . IF YES, PLEASE LIST: ____ . ANY NEW PROBLEMS WITH YOUR MEDICATIONS? NO . WHEN DID YOU LAST EAT? ____ . WHEN DID YOU LAST DRINK? ____ . WHAT DID YOU LAST DRINK? ____ . NAME OF PERSON DRIVING YOU HOME? ____ . DO YOU HAVE ANY OTHER QUESTIONS OR CONCERNS NO . REVIEWED BY: PROVIDER: ROLANDA NAPOLES MD . VITAL SIGNS WT 188.4 LBS, HT 67 IN, BMI 29.50 INDEX, BP 125/68 MM HG, HR 75 /MIN, RR 16 /MIN, TEMP 98.2 F, OXYGEN SAT % 93%, NA INITIALS TL 1310PATIENT WAS WEIGHED ON PMC SCALE- TL. EXAMINATION : PATIENT IS ALERT O X 3 AND COOPERATIVE. THERE IS TENDERNESS IN THE LOWER BACK AND IN THE PARASPINAL MUSCLE GROUP AT THE RIGHT SIDE. MRI SPINE DONE ON 01/25/13 SHOWS FACET ARTHROPATHY CHANGES. ASSESSMENTS SPONDYLOSIS WITHOUT MYELOPATHY OR RADICULOPATHY, LUMBAR REGION - M47.816 (PRIMARY) TREATMENT SPONDYLOSIS WITHOUT MYELOPATHY OR RADICULOPATHY, LUMBAR REGION NOTES: WE DISCUSSED SEVERAL ISSUES WITH MR. BAEZ PAIN MANAGEMENT CASE. AT THIS TIME THE PATIENT WILL CONTINUE ON THE SAME MEDICATION REGIMEN BEFORE. AFTER EXAMINING THE PATIENT REVIEWING THE MRI AND WITH GOOD PAIN RELIEF FROM THE LUMBAR FACET BLOCK, PATIENT IS A GOOD CANDIDATE FOR A RIGHT L2-L3 RADIOFREQUENCY. WE DISCUSSED THE RISK, BENEFITS, AND ALTERNATIVES AND THE PATIENT WOULD LIKE TO PROCEED FORWARD. PATIENT WILL BE BOOKED PENDING APPROVAL. PATIENT WILL FOLLOW UP WITH ME IN ONE MONTH. INSTRUCTIONS WERE GIVEN, QUESTIONS WERE ANSWERED, PATIENT REPORTS UNDERSTANDING AND AGREES WITH THE PLAN. I, AVELINA OBREGON, DOCUMENTED THE ABOVE INFORMATION ACTING A SCRIBE FOR DR. NAPOLES. I HAVE REVIEWED THE ABOVE DOCUMENT, WRITTEN BY AVELINA AVERYIBTeto AND I VERIFY THAT IT IS ACCURATE. PREVENTIVE MEDICINE PAIN CLINIC TEACHING: PROCEDURE TEACHING PT. DECLINED PRINTED INFORMATION ON RF STATING HE HAS HAD THEM IN THE PAST SO IS FAMILIAR WITH IT. PRE-PROCEDURE INSTRUCTIONS REVIEWED WITH PT AND AFTER HE WAS REMINDED NOT TO TAKE ANY PAIN MEDS OR MUSCLE RELAXERS AFTER MIDNIGHT THE DAY OF THE PROCEDURE. HE VERBALIZED UNDERSTANDING. AD. PROCEDURE CODES FA211 ESTABILISHED PATIENT [facility] FACILITY CHARGE G8730 PAIN ASSESS POS TOOL F/U PLAN DOC G8427 DOC MEDS VERIFIED W/PT OR RE DISPOSITION & COMMUNICATION FOLLOW UP 4 WEEKS ELECTRONICALLY SIGNED BY ROLANDA NAPOLES MD ON 08/30/2016 AT 06:29 PM EDT DISCLAIMER : THIS IS A VISIT SUMMARY EXTRACTED FROM THE [employer] CHART. IT IS NOT A COPY OF THE [employer] PROGRESS NOTE. [facility]
== END ==
LOC: M PAIN 12:40
PROVIDERS: ATTEND Anesthesiology
DX: G89.29 Other chronic pain (principal); M47.816 Spondylosis without myelopathy or radiculopathy, lumbar region; I10 Essential (primary) hypertension; Z79.52 Long term (current) use of systemic steroids; Z79.899 Other long term (current) drug therapy

== ENCOUNTER → 2016-09-09 | Outpatient (CLI) | payer OTHER ==
[~2016-09-09] MED LIST changes: +BUPIVACAINE HCL 0.25% 30 ML VIAL As Ordered ONE; +GABA800T; +ISOVUE-M 300 61% 15ML VIAL (Q9967) As Ordered ONE; +LIDOCAINE 1% SDV INJ 30 ML VIAL As Ordered ONE; +LISI-538; +MOBI4TAB PO; -MOBI7.5T10 PO; +PERC5TAB12 PO; +PRIM50TA6; +TRIAMCINOLONE ACETONIDE SUSP 40 MG/ML VIAL (J3301) As Ordered ONE
--- NOTE | 2016-09-09 16:45 | REP ---
FACET BLOCK: The images were reviewed with Dr. Cagle. The patient has a history of back pain. The portable C-Arm was provided in the OR for Dr. Barrientos for fluoroscopic guidance. Three intraoperative fluoroscopic spot films were obtained for needle placement verification for right lumbar facet radiofrequency ablation. The films are on the PACs system and are available for review. 37 seconds of fluoroscopy time was utilized for this procedure. Reviewed by DAVIDSON Toledo 09/09/2016 04:49 PEdited and Signed by Freddie Cagle MD 09/10/2016 05:18 P
--- NOTE | 2016-09-22 23:19 | ECWPNPC ---
PATIENT NAME: KRISTINE BAEZ : 1955 GENDER: MALE VISIT DATE: 09/09/2016 DISCHARGE DATE: 09/09/16 1515 VISIT LOCKED DATE TIME: PHYSICIAN: ROLANDA NAPOLES RESOURCE: ROLANDA NAPOLES REASON FOR APPOINTMENT 1. RF RIGHT L2-L3 HISTORY OF PRESENT ILLNESS HISTORY OF PRESENT ILLNESS: PAIN THE PATIENT DESCRIBES THE PAIN... FALL RISK SCREENING: SCREENING :NO FALLS IN THE PAST YEAR CURRENT MEDICATIONS TAKING MELOXICAM 7.5 MG TABLET 1 TABLET ORALLY ONCE A DAY PRN FOR PAIN, NOTES: 1000 09/08/16 TAKING GABAPENTIN 600 MG TABLET 1 TABLET ORALLY THREE TIMES A DAY, NOTES: 219909/08/16 TAKING TIZANIDINE HCL 4 MG TABLET 1 TABLET NEEDED ORALLY BEFORE BEDTIME FOR SPASMS AND PAIN, NOTES: 219909/08/16 09/08/16 TAKING BACLOFEN 20 MG TABLET 1 TABLET WITH FOOD OR MILK ORALLY BID FOR SPASMS AND PAIN, NOTES: 630 09/08/16 TAKING SERTRALINE HCL 50 MG TABLET 1 TABLET ORALLY ONCE A DAY, NOTES: 1000 09/08/16 TAKING LISINOPRIL 10 MG TABLET 1 TABLET ORALLY ONCE A DAY, NOTES: 1000 09/08/16 TAKING PANTOPRAZOLE SODIUM 40 MG TABLET DELAYED RELEASE 1 TABLET ORALLY ONCE A DAY, NOTES: 1000 09/08/16 TAKING AMITRIPTYLINE HCL 25 MG TABLET 1 TABLET AT BEDTIME ORALLY ONCE A DAY, NOTES: FEW NIGHTS AGO TAKING PRIMIDONE 50 MG TABLET ORALLY AT BEDTIME, NOTES: 7PM 09/08/16 NOT-TAKING PREDNISONE 5 MG TABLET 1 TABLET ORALLY ONCE A DAY NOT-TAKING ZOFRAN 4 MG TABLET 2 TABLETS ORALLY QID PRN MEDICATION LIST REVIEWED AND RECONCILED WITH THE PATIENT PAST MEDICAL HISTORY HYPERTENSION ALLERGIES N.K.D.A. SURGICAL HISTORY REMOVAL LYMPH NODES FROM UNDER LEFT LUNG 20 YRS AGO TRIGGER FINGER RELEASE RIGHT HAND 2015 REMOVAL SCAR TISSUE RIGHT HAND 10/2015 REVIEW OF SYSTEMS REVIEWED BY: PROVIDER: . CONSTITUTIONAL: ANY CHANGE IN YOUR MEDICAL CONDITION? NO . CHILLS NO . FEVER NO . INFECTION: DO YOU HAVE NEW INFECTIONS? NO . DO YOU HAVE HISTORY OF MRSA? NO . MUSCULOSKELETAL: ANY NEW PATTERNS OF PAIN OR NUMBNESS? YES FROM RIGHT HIP DOWN THE LEG TO THE KNEE . GASTROENTEROLOGY: ANY NEW CHANGE IN BOWEL CONTROL? NO . GENITOURINARY: ANY NEW CHANGE IN BLADDER CONTROL? NO . IS THERE A CHANCE YOU COULD BE ? NO . HEMATOLOGY/LYMPH: DO YOU TAKE ANY BLOOD THINNERS? (FOR EXAMPLE- COUMADIN, PLAVIX, AGGRENOX, PLATEL, PRADAXA, OR XARELTO) NO . WHEN WAS YOUR LAST DOSE? DATE: TIME: . NEUROLOGY: HAVE YOU FALLEN IN THE PAST 6 MONTHS? YES, MEDS REACTING / FELL ON BATHROOM FLOOR . ANY NEW EXTREMITY NUMBNESS OR WEAKNESS? NO . CARDIOLOGY: DO YOU HAVE A PACEMAKER OR DEFIBRILLATOR? NO . RESPIRATORY: HAVE YOU BEEN SICK IN THE PAST WEEK? NO . FEVER NO . FLU LIKE SYMPTOMS? NO . COUGH NO . INTEGUMENTARY: DO YOU HAVE ANY RASHES OR OPEN SORES? NO . ALLERGIC/IMMUNO: ARE YOU ALLERGIC TO SHELLFISH OR IV DYE? NO . ANY NEW ALLERGIES? NO . PSYCHIATRIC: DO YOU HAVE THOUGHTS OF HURTING YOURSELF OR SOMEONE ELSE? NO . ARE YOU ABUSED, NEGLECTED, OR IN AN UNSAFE ENVIRONMENT? NO . ENDOCRINOLOGY: ARE YOU DIABETIC? NO . OTHER: DO YOU NEED ANY PRESCRIPTIONS? NO . IF YES, PLEASE LIST: ____ . ANY NEW PROBLEMS WITH YOUR MEDICATIONS? NO . WHEN DID YOU LAST EAT? 6PM . WHEN DID YOU LAST DRINK? 0400 . WHAT DID YOU LAST DRINK? COFFEE . NAME OF PERSON DRIVING YOU HOME? [employer]CHNOLOGIST . DO YOU HAVE ANY OTHER QUESTIONS OR CONCERNS NO . VITAL SIGNS WT 186.0 LBS, HT 67 IN, BMI 29.13 INDEX, BP 153/78 MM HG, HR 74 /MIN, RR 16 /MIN, TEMP 98.3 F, OXYGEN SAT % 95%, NA INITIALS TL 1150, REVIEWED BY: NL. ASSESSMENTS SPONDYLOSIS WITHOUT MYELOPATHY OR RADICULOPATHY, LUMBAR REGION - M47.816 (PRIMARY) PROCEDURES PN RADIOFREQUENCY PRE PROCEDURE DIAGNOSES 1. LUMBAR SPONDYLOSIS. POST PROCEDURE DIAGNOSES 1. LUMBAR SPONDYLOSIS. PROCEDURE RIGHT L2-L3 LUMBAR FACET RADIOFREQUENCY SURGEON DR. ROLANDA NAPOLES ROAD MACHINE RUNNER NONE ANESTHESIA LOCAL PRE PROCEDURE REPORT THE PATIENT HAS HISTORY OF CHRONIC LOW BACK PAIN. I EVALUATE THE PATIENT AND REVIEWED THE CHART. I WENT OVER THE RISKS, ALTERNATIVES, AND BENEFITS ASSOCIATED WITH THIS PROCEDURE. THE PATIENT WOULD LIKE TO PROCEED AND GIVE CONSENT TO PERFORMED THE PROCEDURE. THE PATIENT DENIES UNEXPLAINABLE WEIGHT LOSS, FEVER, CHILLS, OR NEW CHANGES IN URINARY OR BOWEL CONTROL DESCRIPTION OF PROCEDURE THE PATIENT WAS BROUGHT TO THE PROCEDURE ROOM AND PLACED IN THE PRONE POSITION. THE LUMBOSACRAL AREA WAS CLEANED WITH CHLORAPREP SOLUTION AND DRAPED ASEPTICALLY. THE PROCEDURE WAS DONE UNDER STERILE CONDITIONS. I CHECKED LATERALITY AND THE LEVEL WHERE THE PROCEDURE WAS GOING TO BE PERFORMED WITH THE PATIENT AND THE SUPPORTING STAFF AT THE MOMENT OF THE TIME OUT IN THE PROCEDURE ROOM. UNDER FLUOROSCOPIC GUIDANCE, TARGETS WERE SELECTED AT THE INTERSECTION OF THE RIGHT TRANSVERSE PROCESS OF L2 AND L3 WITH ITS RESPECTIVE SUPERIOR ARTICULAR PROCESS. LIDOCAINE WAS USED TO NUMB THE SKIN AND THE SUBCUTANEOUS TISSUE BELOW IT. RADIOFREQUENCY NEEDLES 22-GAUGE 15 CM LONG WITH 10 MM ACTIVE CURVE TIP WERE ADVANCED UNDER FLUOROSCOPIC GUIDANCE AND FOLLOWING PATIENT FEEDBACK UNTIL THE TARGET AREA WAS REACHED. POSITION OF THE NEEDLES WAS VERIFIED WITH AP AND LATERAL VIEWS. AFTER PROPER POSITION OF THE NEEDLE WAS ACHIEVED, WE WORKED WITH THE RIGHT SELECTED MEDIAN BRANCHES OF L2 AND L3. WE MEASURED THE CORRESPONDING IMPEDANCES, SENSORY STIMULATION AND MOTOR RESPONSES INDICATED IN THE RADIOFREQUENCY WORKSHEET. POSITION OF THE NEEDLES WAS VERIFIED AGAIN WITH AP AND LATERAL VIEWS. LIDOCAINE 1%, 2 ML, WAS INJECTED AT EACH LEVEL. RADIOFREQUENCY WAS DONE AT EACH LEVEL AT 80 DEGREES FOR 90 SECONDS. AFTER RADIOFREQUENCY WAS DONE, THE PATIENT RECEIVED BUPIVACAINE 0.125% 1 CC WITH KENALOG 5 MG AT EACH SITE. THERE WAS NO EVIDENCE OF BLOOD, PARESTHESIA OR CEREBROSPINAL FLUID DURING THE PROCEDURE. THE PATIENT WAS SENT TO THE RECOVERY ROOM. THE PATIENT WAS MOVING THE EXTREMITIES AND DOING WELL. THERE WAS NO COMPLICATION DURING THE PROCEDURE. FLUOROSCOPY TIME WAS 37 SECONDS POST PROCEDURE NOTE THE PATIENT WILL BE SEEN IN A FOLLOW UP IN THE NEXT FEW WEEKS. INSTRUCTIONS WERE GIVEN, QUESTIONS WERE ANSWERED, AND THE PATIENT EXPRESSED UNDERSTANDING AND AGREES WITH THE PLAN. I, AVELINA OBREGON, DOCUMENTED THE ABOVE INFORMATION ACTING A SCRIBE FOR DR. NAPOLES. I HAVE REVIEWED THE ABOVE DOCUMENT, WRITTEN BY AVELINA OBREGON SCRIBTeto AND I VERIFY THAT IT IS ACCURATE DIAGNOSTIC IMAGING [facility] FACET BLOCK (PAIN)[id number] PROCEDURE CODES 27030 DESTROY LUMB/SAC FACET JNT 6045F RADXPS IN END [id number] PXD DISPOSITION & COMMUNICATION FOLLOW UP 3 WEEKS ELECTRONICALLY SIGNED BY ROLANDA NAPOLES MD ON 09/22/2016 AT 09:56 PM EDT DISCLAIMER : THIS IS A VISIT SUMMARY EXTRACTED FROM THE [employer] CHART. IT IS NOT A COPY OF THE [facility] PROGRESS NOTE. MTDD
== END ==
LOC: M PAIN 11:40
PROVIDERS: ATTEND Anesthesiology
DX: G89.29 Other chronic pain (principal); M47.816 Spondylosis without myelopathy or radiculopathy, lumbar region; I10 Essential (primary) hypertension; Z79.1 Long term (current) use of non-steroidal anti-inflammatories (NSAID); Z79.899 Other long term (current) drug therapy

== ENCOUNTER → 2016-10-02 | Outpatient (CLI) | payer OTHER ==
[~2016-10-02] MED LIST changes: -BUPIVACAINE HCL 0.25% 30 ML VIAL As Ordered ONE; -ISOVUE-M 300 61% 15ML VIAL (Q9967) As Ordered ONE; -LIDOCAINE 1% SDV INJ 30 ML VIAL As Ordered ONE; -TRIAMCINOLONE ACETONIDE SUSP 40 MG/ML VIAL (J3301) As Ordered ONE
--- NOTE | 2016-10-13 23:58 | ECWPNPC ---
PATIENT NAME: KRISTINE BAEZ : 1955 GENDER: MALE VISIT DATE: 10/02/2016 DISCHARGE DATE: 10/02/16 1104 VISIT LOCKED DATE TIME: PHYSICIAN: ROLANDA NAPOLES RESOURCE: ROLANDA NAPOLES REASON FOR APPOINTMENT 1. BACK PAIN HISTORY OF PRESENT ILLNESS HISTORY OF PRESENT ILLNESS: PAIN THE PATIENT DESCRIBES THE PAIN... 61 YEAR OLD MALE PATIENT WITH HISTORY OF CHRONIC LOW BACK PAIN. PATIENT DESCRIBES THE PAIN ACHING, STABBING SHOOTING WITH A PAIN SCORE OF 0/10 AT THE RIGHT SIDE AND 9/10 AT THE LEFT SIDE. PATIENT RECEIVED A RIGHT RADIOFREQUENCY ON 09/09/16 AND REPORTS HAVING OVER 50% RELIEF FROM PAIN SINCE THE INJECTION. HOWEVER, PATIENT REPORTS HE HAS SEVERE PAIN IN THE LEFT SIDE. CURRENTLY THE PATIENT IS USING BACLOFEN, AMITRIPTYLINE, GABAPENTIN, AND MELOXICAM TO AID IN PAIN RELIEF. MR. BAEZ STATES THAT ANY TYPE OF ACTIVITY INCLUDING WALKING, STANDING, AND SITTING FOR ANY LENGTH OF TIME INCREASES THE PAIN IN HIS LOWER BACK. PATIENT DENIES UNEXPLAINABLE WEIGHT LOSS, FEVER, CHILLS, NEW CHANGES ON HER URINARY OR BOWEL CONTROL. FALL RISK SCREENING: SCREENING :NO FALLS IN THE PAST YEAR CURRENT MEDICATIONS TAKING GABAPENTIN 600 MG TABLET 1 TABLET ORALLY THREE TIMES A DAY TAKING TIZANIDINE HCL 4 MG TABLET 1 TABLET NEEDED ORALLY BEFORE BEDTIME FOR SPASMS AND PAIN TAKING BACLOFEN 20 MG TABLET 1 TABLET WITH FOOD OR MILK ORALLY BID FOR SPASMS AND PAIN TAKING SERTRALINE HCL 50 MG TABLET 1 TABLET ORALLY ONCE A DAY TAKING LISINOPRIL 10 MG TABLET 1 TABLET ORALLY ONCE A DAY TAKING PANTOPRAZOLE SODIUM 40 MG TABLET DELAYED RELEASE 1 TABLET ORALLY ONCE A DAY TAKING AMITRIPTYLINE HCL 25 MG TABLET 1 TABLET AT BEDTIME ORALLY ONCE A DAY TAKING PRIMIDONE 50 MG TABLET ORALLY AT BEDTIME TAKING MELOXICAM 7.5 MG TABLET 1 TABLET ORALLY ONCE A DAY PRN FOR PAIN NOT-TAKING PREDNISONE 5 MG TABLET 1 TABLET ORALLY ONCE A DAY NOT-TAKING ZOFRAN 4 MG TABLET 2 TABLETS ORALLY QID PRN MEDICATION LIST REVIEWED AND RECONCILED WITH THE PATIENT PAST MEDICAL HISTORY HYPERTENSION ALLERGIES N.K.D.A. REVIEW OF SYSTEMS REVIEWED BY: PROVIDER: ROLANDA NAPOLES MD . CONSTITUTIONAL: ANY CHANGE IN YOUR MEDICAL CONDITION? NO . CHILLS NO . FEVER NO . INFECTION: DO YOU HAVE NEW INFECTIONS? NO . DO YOU HAVE HISTORY OF MRSA? NO . MUSCULOSKELETAL: ANY NEW PATTERNS OF PAIN OR NUMBNESS? YES, BOTH HIPS AND RIGHT KNEE HURT NOW. . GASTROENTEROLOGY: ANY NEW CHANGE IN BOWEL CONTROL? NO . GENITOURINARY: ANY NEW CHANGE IN BLADDER CONTROL? NO . IS THERE A CHANCE YOU COULD BE ? NO . HEMATOLOGY/LYMPH: DO YOU TAKE ANY BLOOD THINNERS? (FOR EXAMPLE- COUMADIN, PLAVIX, AGGRENOX, PLATEL, PRADAXA, OR XARELTO) NO . WHEN WAS YOUR LAST DOSE? DATE: TIME: . NEUROLOGY: HAVE YOU FALLEN IN THE PAST 6 MONTHS? YES . ANY NEW EXTREMITY NUMBNESS OR WEAKNESS? NO . CARDIOLOGY: DO YOU HAVE A PACEMAKER OR DEFIBRILLATOR? NO . RESPIRATORY: HAVE YOU BEEN SICK IN THE PAST WEEK? NO . FEVER NO . FLU LIKE SYMPTOMS? NO . COUGH NO . INTEGUMENTARY: DO YOU HAVE ANY RASHES OR OPEN SORES? NO . ALLERGIC/IMMUNO: ARE YOU ALLERGIC TO SHELLFISH OR IV DYE? NO . ANY NEW ALLERGIES? NO . PSYCHIATRIC: DO YOU HAVE THOUGHTS OF HURTING YOURSELF OR SOMEONE ELSE? NO . ARE YOU ABUSED, NEGLECTED, OR IN AN UNSAFE ENVIRONMENT? NO . ENDOCRINOLOGY: ARE YOU DIABETIC? NO . OTHER: DO YOU NEED ANY PRESCRIPTIONS? YES . IF YES, PLEASE LIST: ____ . ANY NEW PROBLEMS WITH YOUR MEDICATIONS? NO . WHEN DID YOU LAST EAT? ____ . WHEN DID YOU LAST DRINK? ____ . WHAT DID YOU LAST DRINK? ____ . NAME OF PERSON DRIVING YOU HOME? ____ . DO YOU HAVE ANY OTHER QUESTIONS OR CONCERNS YES, GABAPENTIN AND BACLOFEN NOT HELPING AT ALL. . VITAL SIGNS WT 183.2 LBS, HT 67 IN, BMI 28.69 INDEX, BP 130/79 MM HG, HR 62 /MIN, RR 16 /MIN, TEMP 98.1 F, OXYGEN SAT % 99%, NA INITIALS SC 10:33, REVIEWED BY: BETSY. EXAMINATION : PATIENT IS ALERT O X 3 AND COOPERATIVE. THERE IS TENDERNESS IN THE LOWER BACK AND IN THE PARASPINAL MUSCLE GROUP AT THE RIGHT SIDE. MRI SPINE DONE ON 01/25/13 SHOWS FACET ARTHROPATHY CHANGES. ASSESSMENTS SPONDYLOSIS WITHOUT MYELOPATHY OR RADICULOPATHY, LUMBAR REGION - M47.816 (PRIMARY) SPONDYLOSIS WITHOUT MYELOPATHY OR RADICULOPATHY, LUMBOSACRAL REGION - M47.817 TREATMENT SPONDYLOSIS WITHOUT MYELOPATHY OR RADICULOPATHY, LUMBAR REGION NOTES: WE DISCUSSED SEVERAL ISSUES WITH MR. BAEZ'S PAIN MANAGEMENT CASE. AT THIS TIME THE PATIENT WILL CONTINUE WITH THE SAME MEDICATION REGIME BEFORE. PATIENT STATES THAT THE MEDICATIONS KEEP HIM MOBILE AND FUNCTIONAL. AT THIS TIME THE PATIENT REPORTS THE RIGHT LOWER BACK DOING VERY WELL FROM THE RADIOFREQUENCY BUT HIS LEFT SIDE IS IN SEVERE PAIN. I WOULD LIKE TO MOVE FORWARD WITH LUMBAR FACET BLOCK DIAGNOSTIC FOR THE LEFT SIDE TO CONSIDER RADIOFREQUENCY. WE DISCUSSED THE RISKS, BENEFITS, AND ALTNERATIVES OF THE INJECTION AND THE PATIENT WOULD LIKE TO PROCEED. INSTRUCTIONS WERE GIVEN, QUESTIONS WERE ANSWERED, PATIENT REPORTS UNDERSTANDING AND AGREES WITH THE PLAN. I, GHASSAN SHAW, DOCUMENTED THE ABOVE INFORMATION ACTING A SCRIBE FOR DR. NAPOLES. I HAVE REVIEWED THE ABOVE DOCUMENT, WRITTEN BY GHASSAN EVANS AND I VERIFY THAT IT IS ACCURATE. OTHERS REFILL GABAPENTIN TABLET, 800 MG, 1 TABLET, ORALLY, THREE TIMES A DAY, 30 DAY(S), 90, REFILLS 2 PROCEDURE CODES FA211 ESTABILISHED PATIENT [facility] FACILITY CHARGE G8427 DOC MEDS VERIFIED W/PT OR RE G8730 PAIN ASSESS POS TOOL F/U PLAN DOC DISPOSITION & COMMUNICATION FOLLOW UP LFBD AFTER APPROVAL ELECTRONICALLY SIGNED BY ROLANDA NAPOLES MD ON 10/13/2016 AT 12:33 PM EDT DISCLAIMER : THIS IS A VISIT SUMMARY EXTRACTED FROM THE [employer] CHART. IT IS NOT A COPY OF THE [employer] PROGRESS NOTE. MTDD
== END ==
LOC: M PAIN 10:20
PROVIDERS: ATTEND Anesthesiology
DX: G89.29 Other chronic pain (principal); M47.816 Spondylosis without myelopathy or radiculopathy, lumbar region; M47.817 Spondylosis without myelopathy or radiculopathy, lumbosacral region; I10 Essential (primary) hypertension; Z79.899 Other long term (current) drug therapy

== ENCOUNTER → 2016-11-04 | Outpatient (CLI) | payer OTHER ==
[~2016-11-04] MED LIST changes: +BUPIVACAINE HCL 0.25% 30 ML VIAL As Ordered ONE; +ISOVUE-M 300 61% 15ML VIAL (Q9967) As Ordered ONE; +LIDOCAINE 1% SDV INJ 30 ML VIAL As Ordered ONE
--- NOTE | 2016-11-04 11:10 | REP ---
Partial lumbar spine series: Four views. . History: Injection procedure for pain. 20 seconds of fluoroscopy time is reported. Findings: A sequence of four fluoroscopically obtained last image hold procedural spot radiographs of the lumbar spine document needle position and contrast injection associated with injection procedure. Signed by Darrion Cunha MD 11/04/2016 11:02 A
--- NOTE | 2016-11-08 23:35 | ECWPNPC ---
PATIENT NAME: KRISTINE BAEZ : 1955 GENDER: MALE VISIT DATE: 11/04/2016 DISCHARGE DATE: 11/04/16 1025 VISIT LOCKED DATE TIME: PHYSICIAN: ROLANDA NAPOLES RESOURCE: ROLANDA NAPOLES REASON FOR APPOINTMENT 1. LT LUMBAR FACET BLOCK #2 HISTORY OF PRESENT ILLNESS HISTORY OF PRESENT ILLNESS: PAIN THE PATIENT DESCRIBES THE PAIN... FALL RISK SCREENING: SCREENING :NO FALLS IN THE PAST YEAR CURRENT MEDICATIONS TAKING TIZANIDINE HCL 4 MG TABLET 1 TABLET NEEDED ORALLY BEFORE BEDTIME FOR SPASMS AND PAIN, NOTES: 11/03/16 2300 TAKING BACLOFEN 20 MG TABLET 1 TABLET WITH FOOD OR MILK ORALLY BID FOR SPASMS AND PAIN, NOTES: 11/03/16 1800 TAKING SERTRALINE HCL 50 MG TABLET 1 TABLET ORALLY ONCE A DAY, NOTES: 11/03/16 0900 TAKING LISINOPRIL 10 MG TABLET 1 TABLET ORALLY ONCE A DAY, NOTES: 11/03/16 46068 TAKING PANTOPRAZOLE SODIUM 40 MG TABLET DELAYED RELEASE 1 TABLET ORALLY ONCE A DAY, NOTES: 11/03/16 0900 TAKING AMITRIPTYLINE HCL 25 MG TABLET 1 TABLET AT BEDTIME ORALLY ONCE A DAY, NOTES: NONE RECENT TAKING PRIMIDONE 50 MG TABLET ORALLY AT BEDTIME, NOTES: 11/03/16 1800 TAKING MELOXICAM 7.5 MG TABLET 1 TABLET ORALLY ONCE A DAY PRN FOR PAIN, NOTES: 11/03/16 0900 TAKING GABAPENTIN 800 MG TABLET 1 TABLET ORALLY THREE TIMES A DAY, NOTES: 11/03/16 2300 NOT-TAKING PREDNISONE 5 MG TABLET 1 TABLET ORALLY ONCE A DAY NOT-TAKING ZOFRAN 4 MG TABLET 2 TABLETS ORALLY QID PRN MEDICATION LIST REVIEWED AND RECONCILED WITH THE PATIENT PAST MEDICAL HISTORY HYPERTENSION ALLERGIES N.K.D.A. SURGICAL HISTORY REMOVAL LYMPH NODES FROM UNDER LEFT LUNG 20 YRS AGO TRIGGER FINGER RELEASE RIGHT HAND 2015 REMOVAL SCAR TISSUE RIGHT HAND 10/2015 REMOVAL OF CYST RIGHT HAND 10/2016 SOCIAL HISTORY GENERAL: TOBACCO USE ARE YOU A:CURRENT SMOKER HOW MANY CIGARETTES A DAY DO YOU SMOKE?21-30 HOW SOON AFTER YOU WAKE UP DO YOU SMOKE YOUR FIRST CIGARETTE?WITHIN 5 MIN HOW OFTEN DO YOU SMOKE CIGARETTES?EVERY DAY PATIENT COUNSELED ON THE DANGERS OF TOBACCO USE AND URGED TO QUIT:11/04/2016 ARE YOU INTERESTED IN QUITTING?NOT READY TO QUIT COUNSELED THE PATIENT ON SMOKING EFFECTS, EDUCATION [id number]/16/2017 PAIN CLINIC PFS, CLERGY, PUBLIC HEALTH REFERRALS CLERGY REFERRAL NEEDED?NO WAS THE PROVIDER NOTIFIED OF ANY PERTINENT INFO?NO PFS REFERRAL NEEDED?NO PUBLIC HEALTH REFERRAL NEEDED?NO PATIENT: ____. REVIEW OF SYSTEMS REVIEWED BY: PROVIDER: . CONSTITUTIONAL: ANY CHANGE IN YOUR MEDICAL CONDITION? YES, CYST REMOVED RIGHT HAND . CHILLS NO . FEVER NO . INFECTION: DO YOU HAVE NEW INFECTIONS? NO . DO YOU HAVE HISTORY OF MRSA? NO . MUSCULOSKELETAL: ANY NEW PATTERNS OF PAIN OR NUMBNESS? YES, PAIN BOTH HIPS HAVE INCREASED . GASTROENTEROLOGY: ANY NEW CHANGE IN BOWEL CONTROL? NO . GENITOURINARY: ANY NEW CHANGE IN BLADDER CONTROL? NO . IS THERE A CHANCE YOU COULD BE ? NO . HEMATOLOGY/LYMPH: DO YOU TAKE ANY BLOOD THINNERS? (FOR EXAMPLE- COUMADIN, PLAVIX, AGGRENOX, PLATEL, PRADAXA, OR XARELTO) NO . WHEN WAS YOUR LAST DOSE? DATE: TIME: . NEUROLOGY: HAVE YOU FALLEN IN THE PAST 6 MONTHS? YES, BEGINNING OF OCT. PAIN IN HIP CAUSED HIM TO FALL--NO INJURY . ANY NEW EXTREMITY NUMBNESS OR WEAKNESS? NO . CARDIOLOGY: DO YOU HAVE A PACEMAKER OR DEFIBRILLATOR? NO . RESPIRATORY: HAVE YOU BEEN SICK IN THE PAST WEEK? NO . FEVER NO . FLU LIKE SYMPTOMS? NO . COUGH NO . INTEGUMENTARY: DO YOU HAVE ANY RASHES OR OPEN SORES? NO . ALLERGIC/IMMUNO: ARE YOU ALLERGIC TO SHELLFISH OR IV DYE? NO . ANY NEW ALLERGIES? NO . PSYCHIATRIC: DO YOU HAVE THOUGHTS OF HURTING YOURSELF OR SOMEONE ELSE? NO . ARE YOU ABUSED, NEGLECTED, OR IN AN UNSAFE ENVIRONMENT? NO . ENDOCRINOLOGY: ARE YOU DIABETIC? NO . OTHER: DO YOU NEED ANY PRESCRIPTIONS? NO . IF YES, PLEASE LIST: ____ . ANY NEW PROBLEMS WITH YOUR MEDICATIONS? NO . WHEN DID YOU LAST EAT? 11/03/16 2100 . WHEN DID YOU LAST DRINK? 11/03/16 2400 . WHAT DID YOU LAST DRINK? WATER . NAME OF PERSON DRIVING YOU HOME? 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 DO YOU HAVE ANY OTHER QUESTIONS OR CONCERNS NO . VITAL SIGNS WT 178.4 LBS, HT 67 IN, BMI 27.94 INDEX, BP 133/85 MM HG, HR 66 /MIN, RR 16 /MIN, TEMP 98.1 F, OXYGEN SAT % 92, REVIEWED BY: AD. ASSESSMENTS SPONDYLOSIS WITHOUT MYELOPATHY OR RADICULOPATHY, LUMBAR REGION - M47.816 (PRIMARY) SPONDYLOSIS WITHOUT MYELOPATHY OR RADICULOPATHY, LUMBOSACRAL REGION - M47.817 PROCEDURES PN LUMBAR FACET BLOCK DIAGNOSTIC PRE PROCEDURE DIAGNOSIS LUMBAR SPONDYLOSIS, LUMBOSACRAL SPONDYLOSIS POST PROCEDURE DIAGNOSIS LUMBAR SPONDYLOSIS, LUMBOSACRAL SPONDYLOSIS PROCEDURE LEFT L4 AND L5 AND LEFT L5 AND S1 FACET BLOCK DIAGNOSTIC NUMBER [address] ROLANDA NAPOLES READERS' ADVISORY SERVICE LIBRARIAN NONE ANESTHESIA LOCAL PRE PROCEDURE NOTE THE PATIENT WITH HISTORY OF CHRONIC LOW BACK PAIN. I EVALUATED THE PATIENT AND REVIEWED THE CHART. I WENT OVER THE RISKS, ALTERNATIVES, AND BENEFITS ASSOCIATED WITH THIS PROCEDURE. THE PATIENT WOULD LIKE TO PROCEED AND GAVE CONSENT TO PERFORM THE PROCEDURE. AGREED WITH THE PATIENT WE ARE DOING THIS PROCEDURE TO DETERMINE IF THE PATIENT IS A CANDIDATE FOR A RADIOFREQUENCY ABLATION OF THE FACETS JOINTS. THE PATIENT DENIES UNEXPLAINABLE WEIGHT LOSS, FEVER, CHILLS, OR NEW CHANGES IN URINARY OR BOWEL CONTROL DESCRIPTION OF PROCEDURE THE PATIENT WAS BROUGHT TO THE PROCEDURE ROOM AND PLACED IN THE PRONE POSITION. THE LUMBOSACRAL AREA WAS CLEANED WITH CHLORAPREP SOLUTION AND DRAPED ASEPTICALLY. THE PROCEDURE WAS DONE UNDER STERILE CONDITIONS. I CHECKED LATERALITY AND THE LEVEL WHERE THE PROCEDURE WAS GOING TO BE PERFORMED WITH THE PATIENT AND THE SUPPORTING STAFF AT THE MOMENT OF THE TIME OUT IN THE PROCEDURE ROOM. UNDER FLUOROSCOPIC GUIDANCE, TARGETS WERE SELECTED AT THE INTERSECTION OF THE LEFT TRANSVERSE PROCESS OF L4, L5 AND ALA OF S1 WITH ITS RESPECTIVE SUPERIOR ARTICULAR PROCESS. LIDOCAINE WAS USED TO NUMB THE SKIN AND THE SUBCUTANEOUS TISSUE BELOW IT. SPINAL NEEDLE, 22-GAUGE WAS ADVANCED UNDER FLUOROSCOPIC GUIDANCE AND FOLLOWING PATIENT FEEDBACK UNTIL THE TARGETS WERE REACHED. POSITION OF THE NEEDLES WAS VERIFIED WITH AP AND LATERAL VIEWS. AFTER PROPER POSITION OF THE NEEDLES WAS ACHIEVED, ISOVUE-M DYE 30% 0.1 ML WAS INJECTED AT EACH SITE SHOWING ADEQUATE SPREAD OF THE DYE. THEN A SOLUTION OF 0.4 ML OF BUPIVACAINE 0.25% WAS INJECTED AT EACH SITE. THERE WAS NO EVIDENCE OF BLOOD, PARESTHESIA OR CEREBROSPINAL FLUID DURING THE PROCEDURE. THE PATIENT WAS SENT TO THE RECOVERY ROOM. THE PATIENT WAS MOVING THE EXTREMITIES AND DOING WELL. THERE WAS NO COMPLICATION DURING THE PROCEDURE. FLUOROSCOPY TIME WAS 20 SECONDS POST PROCEDURE NOTE THE PATIENT WILL DOCUMENT HIS PAIN LEVEL AND RESPONSE TO THIS PROCEDURE EVERY 30 MINUTES. THE PATIENT WILL BE SEEN IN A FOLLOW UP IN THE NEXT FEW WEEKS. FURTHER DETERMINATION FOR HIS CASE WILL BE DONE AT THE NEXT VISIT. INSTRUCTIONS WERE GIVEN, QUESTIONS WERE ANSWERED, AND THE PATIENT EXPRESSED UNDERSTANDING AND AGREED WITH THE PLAN. I MELISSA ROMEO DOCUMENTED THE ABOVE INFORMATION ACTING A PERSONAL CLOTHING LAUNDRY AIDE FOR DR. NAPOLES. I HAVE REVIEWED THE ABOVE DOCUMENT WRITTEN BY MELISSA ROMEO SCRIBTeto AND I VERIFY THAT IT IS ACCURATE. DIAGNOSTIC IMAGING [facility] FACET BLOCK (PAIN)[id number] PROCEDURE CODES 89191 INJ PARAVERT F JNT L/S 1 LEV 06151 INJ PARAVERT F JNT L/S 2 LEV 6045F RADXPS IN END [id number] PXD DISPOSITION & COMMUNICATION FOLLOW UP 3 WEEKS ELECTRONICALLY SIGNED BY ROLANDA NAPOLES MD ON 11/08/2016 AT 12:53 PM EDT DISCLAIMER : THIS IS A VISIT SUMMARY EXTRACTED FROM THE [employer] CHART. IT IS NOT A COPY OF THE [employer] PROGRESS NOTE. LEONILA
== END ==
LOC: M PAIN 08:45
PROVIDERS: ATTEND Anesthesiology
DX: G89.29 Other chronic pain (principal); M47.816 Spondylosis without myelopathy or radiculopathy, lumbar region; M47.817 Spondylosis without myelopathy or radiculopathy, lumbosacral region; I10 Essential (primary) hypertension; F17.210 Nicotine dependence, cigarettes, uncomplicated; M25.551 Pain in right hip; M25.552 Pain in left hip; Z79.899 Other long term (current) drug therapy
CPT/HCPCS: 64493; 64494; Q9967

== ENCOUNTER → 2016-12-04 | Outpatient (CLI) | payer OTHER ==
[~2016-12-04] MED LIST changes: -BUPIVACAINE HCL 0.25% 30 ML VIAL As Ordered ONE; -ISOVUE-M 300 61% 15ML VIAL (Q9967) As Ordered ONE; -LIDOCAINE 1% SDV INJ 30 ML VIAL As Ordered ONE
--- NOTE | 2016-12-10 01:18 | ECWPNPC ---
PATIENT NAME: KRISTINE BAEZ : 1955 GENDER: MALE VISIT DATE: 12/04/2016 DISCHARGE DATE: 12/04/16 1432 VISIT LOCKED DATE TIME: PHYSICIAN: ROLANDA NAPOLES RESOURCE: ROLANDA NAPOLES REASON FOR APPOINTMENT 1. LOW BACK PAIN HISTORY OF PRESENT ILLNESS FALL RISK SCREENING: SCREENING :NO FALLS IN THE PAST YEAR 61 YEAR OLD MALE PATIENT WITH HISTORY OF CHRONIC LOW BACK PAIN. PATIENT DESCRIBES THE PAIN ACHING, STABBING SHOOTING WITH A PAIN SCORE OF 0/10 AT THE RIGHT SIDE AND 9/10 AT THE LEFT SIDE. PATIENT RECEIVED A LEFT DIAGNOSTIC FACET BLOCK AND REPORTS HAVING OVER 50% RELIEF FROM PAIN FOR OVER 8 HOURS. CURRENTLY THE PATIENT IS USING BACLOFEN, AMITRIPTYLINE, GABAPENTIN, AND MELOXICAM TO AID IN PAIN RELIEF. MR. BAEZ STATES THAT ANY TYPE OF ACTIVITY INCLUDING WALKING, STANDING, AND SITTING FOR ANY LENGTH OF TIME INCREASES THE PAIN IN HIS LOWER BACK. PATIENT DENIES UNEXPLAINABLE WEIGHT LOSS, FEVER, CHILLS, NEW CHANGES ON HER URINARY OR BOWEL CONTROL. PAIN SCREENING: PATIENT HAS A COMPLAINT OF ACUTE OR CHRONIC PAIN :YES CURRENT MEDICATIONS TAKING TIZANIDINE HCL 4 MG TABLET 1 TABLET NEEDED ORALLY BEFORE BEDTIME FOR SPASMS AND PAIN, NOTES: 12/03 9PM TAKING BACLOFEN 20 MG TABLET 1 TABLET WITH FOOD OR MILK ORALLY BID FOR SPASMS AND PAIN, NOTES: 12/03 6PM TAKING SERTRALINE HCL 50 MG TABLET 1 TABLET ORALLY ONCE A DAY, NOTES: 12/04 9AM TAKING LISINOPRIL 10 MG TABLET 1 TABLET ORALLY ONCE A DAY, NOTES: 12/04 9AM TAKING PANTOPRAZOLE SODIUM 40 MG TABLET DELAYED RELEASE 1 TABLET ORALLY ONCE A DAY, NOTES: 12/04 9AM TAKING AMITRIPTYLINE HCL 25 MG TABLET 1 TABLET AT BEDTIME ORALLY ONCE A DAY, NOTES: 2 DAYS AGO TAKING PRIMIDONE 50 MG TABLET ORALLY AT BEDTIME, NOTES: 12/04 9AM TAKING MELOXICAM 7.5 MG TABLET 1 TABLET ORALLY ONCE A DAY PRN FOR PAIN, NOTES: 12/04 9AM TAKING GABAPENTIN 800 MG TABLET 1 TABLET ORALLY THREE TIMES A DAY, NOTES: 12/04 9AM TAKING PREDNISONE 50 MG TABLET 2 TABLET ORALLY ONCE A DAY NOT-TAKING ZOFRAN 4 MG TABLET 2 TABLETS ORALLY QID PRN MEDICATION LIST REVIEWED AND RECONCILED WITH THE PATIENT PAST MEDICAL HISTORY HYPERTENSION ALLERGIES N.K.D.A. SURGICAL HISTORY REMOVAL LYMPH NODES FROM UNDER LEFT LUNG 20 YRS AGO TRIGGER FINGER RELEASE RIGHT HAND 2015 REMOVAL SCAR TISSUE RIGHT HAND 10/2015 REMOVAL OF CYST RIGHT HAND 10/2016 SOCIAL HISTORY GENERAL: TOBACCO USE ARE YOU A:CURRENT SMOKER HOW MANY CIGARETTES A DAY DO YOU SMOKE?21-30 HOW SOON AFTER YOU WAKE UP DO YOU SMOKE YOUR FIRST CIGARETTE?WITHIN 5 MIN HOW OFTEN DO YOU SMOKE CIGARETTES?EVERY DAY PATIENT COUNSELED ON THE DANGERS OF TOBACCO USE AND URGED TO QUIT:11/04/2016 ARE YOU INTERESTED IN QUITTING?NOT READY TO QUIT COUNSELED THE PATIENT ON SMOKING EFFECTS, EDUCATION [id number]/16/2017 CAFFEINE CAFFEINE USE?YES HOW OFTEN AND HOW MUCH? 6 CUPS PER DAY LEARNING BARRIERS / SPECIAL NEEDS CHANGE FROM LAST VISIT?NO PAIN CLINIC PFS, CLERGY, PUBLIC HEALTH REFERRALS PFS REFERRAL NEEDED?NO CLERGY REFERRAL NEEDED?NO PUBLIC HEALTH REFERRAL NEEDED?NO WAS THE PROVIDER NOTIFIED OF ANY PERTINENT INFO?YES HAS THE PATIENT BEEN EDUCATED REGARDING HIS/HER PLAN OF CARE?YES HAS THE PATIENT BEEN EDUCATED REGARDING PAIN, THE RISK FOR PAIN, THE IMPORTANCE OF EFFECTIVE PAIN MANAGEMENT, AND THE PAIN ASSESSMENT PROCESS?YES REVIEWED BY: BILL. PATIENT: ____. REVIEW OF SYSTEMS REVIEWED BY: PROVIDER: ROLANDA NAPOLES MD . CONSTITUTIONAL: ANY CHANGE IN YOUR MEDICAL CONDITION? NO . CHILLS NO . FEVER NO . INFECTION: DO YOU HAVE NEW INFECTIONS? NO . DO YOU HAVE HISTORY OF MRSA? NO . MUSCULOSKELETAL: ANY NEW PATTERNS OF PAIN OR NUMBNESS? NO . SYTEMIC LUPUS NO . GASTROENTEROLOGY: ANY NEW CHANGE IN BOWEL CONTROL? NO . BARRETTS ESOPHAGUS NO . CIRRHOSIS NO . HEPATITIS NO . LIVER FAILURE NO . ACID REFLUX NO . UNEXPLAINED WEIGHT LOSS NO . GENITOURINARY: ANY NEW CHANGE IN BLADDER CONTROL? NO . IS THERE A CHANCE YOU COULD BE ? NO . HEMATOLOGY/LYMPH: DO YOU TAKE ANY BLOOD THINNERS? (FOR EXAMPLE- COUMADIN, PLAVIX, AGGRENOX, PLATEL, PRADAXA, OR XARELTO) NO . WHEN WAS YOUR LAST DOSE? DATE: TIME: . LOW PLATELET COUNT NO . SICKLE CELL DISEASE NO . VON WILLIEBRANDS NO . FACTOR V LEIDEN NO . THALLASEMIA NO . ANEMIA NO . EASY BRUISING NO . NEUROLOGY: HAVE YOU FALLEN IN THE PAST 6 MONTHS? YES, PT STATES THAT HE HAS FALLEN IN THE LAST 6 MONTHS, PT STATES THAT HE WAS DIZZY FROM MEDICATION, LOST BALANCE AND FELL DOWN, NO INJURY AND NO REPORT TO ED . ANY NEW EXTREMITY NUMBNESS OR WEAKNESS? NO . HEAD INJURY NO . DEMENTIA NO . CEREBRAL PALSY NO . MULTIPLE SCLEROSIS NO . DIZZINESS NO . HEADACHE NO . STROKES NO . VERTIGO NO . CARDIOLOGY: DO YOU HAVE A PACEMAKER OR DEFIBRILLATOR? NO . ANGINA NO . HEART ATTACK NO . HEART SURGERY NO . CONGESTIVE HEART FAILURE/FLUID OVERLOAD NO . CHEST PAIN NO . HIGH BLOOD PRESSURE NO . IRREGULAR HEART BEAT NO . RESPIRATORY: HAVE YOU BEEN SICK IN THE PAST WEEK? NO . FEVER NO . FLU LIKE SYMPTOMS? NO . CPAP NO . BYPAP NO . ASTHMA NO . EMPHYSEMA NO . CHRONIC LUNG DISEASES NO . SHORTNESS OF BREATH ON EXERTION NO . COUGH NO . SNORING NO . INTEGUMENTARY: DO YOU HAVE ANY RASHES OR OPEN SORES? NO . ALLERGIC/IMMUNO: ARE YOU ALLERGIC TO SHELLFISH OR IV DYE? NO . ANY NEW ALLERGIES? NO . PSYCHIATRIC: DO YOU HAVE THOUGHTS OF HURTING YOURSELF OR SOMEONE ELSE? NO . ARE YOU ABUSED, NEGLECTED, OR IN AN UNSAFE ENVIRONMENT? NO . ENDOCRINOLOGY: ARE YOU DIABETIC? NO . THYROID DISORDER NO . OTHER: DO YOU NEED ANY PRESCRIPTIONS? NO . IF YES, PLEASE LIST: ____ . ANY NEW PROBLEMS WITH YOUR MEDICATIONS? NO . WHEN DID YOU LAST EAT? ____ . WHEN DID YOU LAST DRINK? ____ . WHAT DID YOU LAST DRINK? ____ . NAME OF PERSON DRIVING YOU HOME? ____ . DO YOU HAVE ANY OTHER QUESTIONS OR CONCERNS PT STATES THAT HE IS A CURRENT SMOKER AND REFUSING ANY SMOKING CESSATION COUSELING AT THIS TIME. NEUROLOGY DOC IS PRESCRIBING PREDNISONE FOR TREMORS IN HAND . VITAL SIGNS WT 178 LBS, HT 67 IN, BMI 27.88 INDEX, BP 116/66 MM HG, HR 64 /MIN, RR 16 /MIN, TEMP 97.6 F, OXYGEN SAT % 90%, SAFE IN ENV? (Y/N) Y, NA INITIALS OK 13:47, REVIEWED BY: BILL. EXAMINATION : PATIENT IS ALERT O X 3 AND COOPERATIVE. THERE IS TENDERNESS IN THE LOWER BACK AND IN THE PARASPINAL MUSCLE GROUP AT THE RIGHT SIDE. MRI SPINE DONE ON 01/25/13 SHOWS FACET ARTHROPATHY CHANGES. ASSESSMENTS SPONDYLOSIS OF LUMBAR REGION WITHOUT MYELOPATHY OR RADICULOPATHY - M47.816 (PRIMARY) SPONDYLOSIS OF LUMBOSACRAL REGION WITHOUT MYELOPATHY OR RADICULOPATHY - M47.817 TREATMENT SPONDYLOSIS OF LUMBAR REGION WITHOUT MYELOPATHY OR RADICULOPATHY NOTES: WE DISCUSSED SEVERAL ISSUES WITH MR. BAEZ'S PAIN MANAGEMENT CASE. AT THIS TIME THE PATIENT WILL CONTINUE WITH THE SAME MEDICATION REGIME BEFORE. PATIENT STATES THAT THE MEDICATIONS KEEP HIM MOBILE AND FUNCTIONAL. AT THIS TIME DUE TO THE PATIENT HAVING ADEQUATE RESULTS FROM THE DIAGNOSTIC FACET BLOCK I WOULD LIKE TO MOVE FORWARD WITH A LEFT RADIOFREQUENCY. WE DISCUSSED THE RISKS, BENENFITS, AND ALTNERATIVES OF THE INJECTION AND THE PATIENT WOULD LIKE TO PROCEED AT THIS TIME. INSTRUCTIONS WERE GIVEN, QUESTIONS WERE ANSWERED, PATIENT REPORTS UNDERSTANDING AND AGREES WITH THE PLAN. I, GHASSAN SHAW, DOCUMENTED THE ABOVE INFORMATION ACTING A SCRIBE FOR DR. NAPOLES. I HAVE REVIEWED THE ABOVE DOCUMENT, WRITTEN BY GHASSAN EVANS AND I VERIFY THAT IT IS ACCURATE. PROCEDURE CODES FA211 ESTABILISHED PATIENT [facility] CHARGE G8427 DOC MEDS VERIFIED W/PT OR RE G8730 PAIN ASSESS POS TOOL F/U PLAN DOC DISPOSITION & COMMUNICATION FOLLOW UP RF AFTER APPROVAL ELECTRONICALLY SIGNED BY ROLANDA NAPOLES MD ON 12/09/2016 AT 01:33 PM EDT DISCLAIMER : THIS IS A VISIT SUMMARY EXTRACTED FROM THE [facility] CHART. IT IS NOT A COPY OF THE [facility] PROGRESS NOTE. LEONILA
== END ==
LOC: M PAIN 11:45
PROVIDERS: ATTEND Anesthesiology
DX: G89.29 Other chronic pain (principal); M47.816 Spondylosis without myelopathy or radiculopathy, lumbar region; M47.817 Spondylosis without myelopathy or radiculopathy, lumbosacral region; I10 Essential (primary) hypertension; F17.210 Nicotine dependence, cigarettes, uncomplicated; Z79.52 Long term (current) use of systemic steroids; Z79.899 Other long term (current) drug therapy

== ENCOUNTER → 2016-12-07 | Outpatient (CLI) | payer OTHER ==
--- NOTE | 2016-12-07 15:09 | REP ---
BILATERAL HIP SERIES: Four views. HISTORY: Pain in both hips. Comparison is made with a left hip prior study from December 18, 2010. FINDINGS: AP and frog-leg views of both hips are presented. There is minimal inferior acetabular spurring noted bilaterally. Femoral heads are smooth and rounded. Hip joint spaces are preserved. Periarticular soft tissues are unremarkable on both sides. IMPRESSION: Mild inferior acetabular spurring bilaterally. Otherwise negative bilateral hip study. Signed by Darrion Cunha MD 12/07/2016 04:35 P
== END ==
LOC: M RAD 13:16
PROVIDERS: ATTEND Family Medicine
DX: M12.851 Other specific arthropathies, not elsewhere classified, right hip (principal)

== ENCOUNTER → 2017-01-07 | Outpatient (CLI) | payer MEDICARE, OTHER ==
[~2017-01-07] MED LIST changes: +BUPIVACAINE HCL 0.25% 30 ML VIAL As Ordered ONE; +ISOVUE-M 300 61% 15ML VIAL (Q9967) As Ordered ONE; +LIDOCAINE 1% SDV INJ 30 ML VIAL As Ordered ONE; +TRIAMCINOLONE ACETONIDE SUSP 40 MG/ML VIAL (J3301) As Ordered ONE
--- NOTE | 2017-01-07 20:49 | REP ---
FLUOROSCOPIC GUIDANCE FOR RADIOFREQUENCY ABLATION LEFT LUMBAR: 01/07/2017. Five images from C-arm fluoroscopy provided to Dr. Bach of the pain clinic. Clinical history: Low back pain. Findings. [place] at L3-4 through L5-S1 were seen on PA, oblique and true lateral views for radiofrequency ablation. Fluoroscopy time 28 seconds. Signed by Allen Ivan MD 01/08/2017 05:01 P
--- NOTE | 2017-01-17 23:57 | ECWPNPC ---
PATIENT NAME: KRISTINE BAEZ : 1955 GENDER: MALE VISIT DATE: 01/07/2017 DISCHARGE DATE: 01/07/17 151 VISIT LOCKED DATE TIME: PHYSICIAN: ROLANDA NAPOLES RESOURCE: ROLANDA NAPOLES REASON FOR APPOINTMENT 1. RF HISTORY OF PRESENT ILLNESS HISTORY OF PRESENT ILLNESS: PAIN THE PATIENT DESCRIBES THE PAIN... FALL RISK SCREENING: SCREENING :NO FALLS IN THE PAST YEAR CURRENT MEDICATIONS TAKING TIZANIDINE HCL 4 MG TABLET 1 TABLET NEEDED ORALLY BEFORE BEDTIME FOR SPASMS AND PAIN, NOTES: [id number] TAKING BACLOFEN 20 MG TABLET 1 TABLET WITH FOOD OR MILK ORALLY BID FOR SPASMS AND PAIN, NOTES: 01-07-172099 TAKING SERTRALINE HCL 50 MG TABLET 1 TABLET ORALLY ONCE A DAY, NOTES: 01-07-172099 TAKING LISINOPRIL 10 MG TABLET 1 TABLET ORALLY ONCE A DAY, NOTES: 01-07-17899 TAKING PANTOPRAZOLE SODIUM 40 MG TABLET DELAYED RELEASE 1 TABLET ORALLY ONCE A DAY, NOTES: 01-07-17899 TAKING AMITRIPTYLINE HCL 25 MG TABLET 1 TABLET AT BEDTIME ORALLY ONCE A DAY, NOTES: 2 DAYS AGO TAKING GABAPENTIN 800 MG TABLET 1 TABLET ORALLY THREE TIMES A DAY, NOTES: 12/04 9AM TAKING MELOXICAM 7.5 MG TABLET 1 TABLET ORALLY ONCE A DAY PRN FOR PAIN, NOTES: 01-07-172099 NOT-TAKING PRIMIDONE 50 MG TABLET ORALLY AT BEDTIME, NOTES: 3 DAYS AGO NOT-TAKING PREDNISONE 50 MG TABLET 2 TABLET ORALLY ONCE A DAY UNKNOWN ZOFRAN 4 MG TABLET 2 TABLETS ORALLY QID PRN, NOTES: 01-07-172099 MEDICATION LIST REVIEWED AND RECONCILED WITH THE PATIENT PAST MEDICAL HISTORY HYPERTENSION ALLERGIES N.K.D.A. SOCIAL HISTORY GENERAL: TOBACCO USE ARE YOU A:CURRENT SMOKER ARE YOU INTERESTED IN QUITTING?NOT READY TO QUIT COUNSELED THE PATIENT ON SMOKING EFFECTS, EDUCATION [id number]/16/2017 HOW MANY CIGARETTES A DAY DO YOU SMOKE?21-30 HOW SOON AFTER YOU WAKE UP DO YOU SMOKE YOUR FIRST CIGARETTE?WITHIN 5 MIN HOW OFTEN DO YOU SMOKE CIGARETTES?EVERY DAY PATIENT COUNSELED ON THE DANGERS OF TOBACCO USE AND URGED TO QUIT:11/04/2016 SMOKING CESSATION INFORMATION GIVEN01/07/2017 CAFFEINE CAFFEINE USE?YES HOW OFTEN AND HOW MUCH? 6 CUPS PER DAY LEARNING BARRIERS / SPECIAL NEEDS CHANGE FROM LAST VISIT?NO PAIN CLINIC PFS, CLERGY, PUBLIC HEALTH REFERRALS PFS REFERRAL NEEDED?NO CLERGY REFERRAL NEEDED?NO PUBLIC HEALTH REFERRAL NEEDED?NO WAS THE PROVIDER NOTIFIED OF ANY PERTINENT INFO?YES HAS THE PATIENT BEEN EDUCATED REGARDING HIS/HER PLAN OF CARE?YES HAS THE PATIENT BEEN EDUCATED REGARDING PAIN, THE RISK FOR PAIN, THE IMPORTANCE OF EFFECTIVE PAIN MANAGEMENT, AND THE PAIN ASSESSMENT PROCESS?YES REVIEWED BY: DS. PATIENT: ____. REVIEW OF SYSTEMS REVIEWED BY: PROVIDER: . CONSTITUTIONAL: ANY CHANGE IN YOUR MEDICAL CONDITION? NO . CHILLS NO . FEVER NO . INFECTION: DO YOU HAVE NEW INFECTIONS? NO . DO YOU HAVE HISTORY OF MRSA? NO . MUSCULOSKELETAL: ANY NEW PATTERNS OF PAIN OR NUMBNESS? KNEES ARE GETTING WEAKER AND BOTH HIPS . GASTROENTEROLOGY: ANY NEW CHANGE IN BOWEL CONTROL? NO . GENITOURINARY: ANY NEW CHANGE IN BLADDER CONTROL? NO . IS THERE A CHANCE YOU COULD BE ? NO . HEMATOLOGY/LYMPH: DO YOU TAKE ANY BLOOD THINNERS? (FOR EXAMPLE- COUMADIN, PLAVIX, AGGRENOX, PLATEL, PRADAXA, OR XARELTO) NO . WHEN WAS YOUR LAST DOSE? DATE: TIME: . NEUROLOGY: HAVE YOU FALLEN IN THE PAST 6 MONTHS? YES FALLS WITHOUT INJURY . ANY NEW EXTREMITY NUMBNESS OR WEAKNESS? NO . CARDIOLOGY: DO YOU HAVE A PACEMAKER OR DEFIBRILLATOR? NO . RESPIRATORY: HAVE YOU BEEN SICK IN THE PAST WEEK? NO . FEVER NO . FLU LIKE SYMPTOMS? NO . COUGH NO . INTEGUMENTARY: DO YOU HAVE ANY RASHES OR OPEN SORES? NO . ALLERGIC/IMMUNO: ARE YOU ALLERGIC TO SHELLFISH OR IV DYE? NO . ANY NEW ALLERGIES? NO . PSYCHIATRIC: DO YOU HAVE THOUGHTS OF HURTING YOURSELF OR SOMEONE ELSE? NO . ARE YOU ABUSED, NEGLECTED, OR IN AN UNSAFE ENVIRONMENT? NO . ENDOCRINOLOGY: ARE YOU DIABETIC? NO . OTHER: DO YOU NEED ANY PRESCRIPTIONS? NO . IF YES, PLEASE LIST: ____ . ANY NEW PROBLEMS WITH YOUR MEDICATIONS? NO . WHEN DID YOU LAST EAT? ____6 PM LAST NIGHT . WHEN DID YOU LAST DRINK? ____6 AM THIS MORNING . WHAT DID YOU LAST DRINK? ___WATER . NAME OF PERSON DRIVING YOU HOME? ____GIRLFRIEND . DO YOU HAVE ANY OTHER QUESTIONS OR CONCERNS NO . VITAL SIGNS WT 178 LBS, HT 67 IN, BMI 27.88 INDEX, BP 151/86 MM HG, HR 80 /MIN, RR 18 /MIN, TEMP 98.6 F, OXYGEN SAT % 94%, NA INITIALS CM 1300. ASSESSMENTS SPONDYLOSIS OF LUMBAR REGION WITHOUT MYELOPATHY OR RADICULOPATHY - M47.816 (PRIMARY) SPONDYLOSIS OF LUMBOSACRAL REGION WITHOUT MYELOPATHY OR RADICULOPATHY - M47.817 PROCEDURES PN RADIOFREQUENCY PRE PROCEDURE DIAGNOSES 1. LUMBAR SPONDYLOSIS. 2. LUMBOSACRAL SPONDYLOSIS POST PROCEDURE DIAGNOSES 1. LUMBAR SPONDYLOSIS. 2. LUMBOSACRAL SPONDYLOSIS PROCEDURE LEFT L4-L5 AND LEFT L5-S1 LUMBAR FACET RADIOFREQUENCY SURGEON DR. ROLANDA NAPOLES CAR DRYER NONE ANESTHESIA LOCAL PRE PROCEDURE REPORT THE PATIENT HAS HISTORY OF CHRONIC LOW BACK PAIN. I EVALUATE THE PATIENT AND REVIEWED THE CHART. I WENT OVER THE RISKS, ALTERNATIVES, AND BENEFITS ASSOCIATED WITH THIS PROCEDURE. THE PATIENT WOULD LIKE TO PROCEED AND GIVE CONSENT TO PERFORMED THE PROCEDURE. THE PATIENT DENIES UNEXPLAINABLE WEIGHT LOSS, FEVER, CHILLS, OR NEW CHANGES IN URINARY OR BOWEL CONTROL DESCRIPTION OF PROCEDURE THE PATIENT WAS BROUGHT TO THE PROCEDURE ROOM AND PLACED IN THE PRONE POSITION. THE LUMBOSACRAL AREA WAS CLEANED WITH CHLORAPREP SOLUTION AND DRAPED ASEPTICALLY. THE PROCEDURE WAS DONE UNDER STERILE CONDITIONS. I CHECKED LATERALITY AND THE LEVEL WHERE THE PROCEDURE WAS GOING TO BE PERFORMED WITH THE PATIENT AND THE SUPPORTING STAFF AT THE MOMENT OF THE TIME OUT IN THE PROCEDURE ROOM. UNDER FLUOROSCOPIC GUIDANCE, TARGETS WERE SELECTED AT THE INTERSECTION OF THE LEFT TRANSVERSE PROCESS OF L4, L5 AND ALA OF S1 WITH ITS RESPECTIVE SUPERIOR ARTICULAR PROCESS. LIDOCAINE WAS USED TO NUMB THE SKIN AND THE SUBCUTANEOUS TISSUE BELOW IT. RADIOFREQUENCY NEEDLES 22-GAUGE 15 CM LONG WITH 10 MM ACTIVE CURVE TIP WERE ADVANCED UNDER FLUOROSCOPIC GUIDANCE AND FOLLOWING PATIENT FEEDBACK UNTIL THE TARGET AREA WAS REACHED. POSITION OF THE NEEDLES WAS VERIFIED WITH AP AND LATERAL VIEWS. AFTER PROPER POSITION OF THE NEEDLE WAS ACHIEVED, WE WORKED WITH THE LEFT SELECTED MEDIAN BRANCHES OF L3, L4 AND THE DORSAL RAMI OF L5. WE MEASURED THE CORRESPONDING IMPEDANCES, SENSORY STIMULATION AND MOTOR RESPONSES INDICATED IN THE RADIOFREQUENCY WORK SHEET. POSITION OF THE NEEDLES WAS VERIFIED AGAIN WITH AP AND LATERAL VIEWS. LIDOCAINE 1%, 2 ML, WAS INJECTED AT EACH LEVEL. RADIOFREQUENCY WAS DONE AT EACH LEVEL AT 80 DEGREES FOR 90 SECONDS. AFTER RADIOFREQUENCY WAS DONE, THE PATIENT RECEIVED BUPIVACAINE 0.125% 1 CC WITH KENALOG 5 MG AT EACH SITE. THERE WAS NO EVIDENCE OF BLOOD, PARESTHESIA OR CEREBROSPINAL FLUID DURING THE PROCEDURE. THE PATIENT WAS SENT TO THE RECOVERY ROOM. THE PATIENT WAS MOVING THE EXTREMITIES AND DOING WELL. THERE WAS NO COMPLICATION DURING THE PROCEDURE. FLUOROSCOPY TIME WAS 28 SECONDS POST PROCEDURE NOTE THE PATIENT WILL BE SEEN IN A FOLLOW UP IN THE NEXT FEW WEEKS. INSTRUCTIONS WERE GIVEN, QUESTIONS WERE ANSWERED, AND THE PATIENT EXPRESSED UNDERSTANDING AND AGREES WITH THE PLAN. I, GHASSAN SHAW, DOCUMENTED THE ABOVE INFORMATION ACTING A SCRIBE FOR DR. NAPOLES. I HAVE REVIEWED THE ABOVE DOCUMENT, WRITTEN BY GHASSAN SHAW SCRIBE AND I VERIFY THAT IT IS ACCURATE DIAGNOSTIC IMAGING [facility] FACET BLOCK (PAIN)[id number] PROCEDURE CODES 61489 DESTROY LUMB/SAC FACET JNT, MODIFIERS: LT 40474 DESTROY L/S FACET JNT ADDL, MODIFIERS: LT [id number] RADXPS IN END [id number] PXD DISPOSITION & COMMUNICATION FOLLOW UP 3 WEEKS ELECTRONICALLY SIGNED BY ROLANDA NAPOLES MD ON 01/17/2017 AT 07:49 PM EDT DISCLAIMER : THIS IS A VISIT SUMMARY EXTRACTED FROM THE [employer] CHART. IT IS NOT A COPY OF THE [employer] PROGRESS NOTE. MTDD
== END ==
LOC: M PAIN 13:00
PROVIDERS: ATTEND Anesthesiology
DX: G89.29 Other chronic pain (principal); M47.816 Spondylosis without myelopathy or radiculopathy, lumbar region; M47.817 Spondylosis without myelopathy or radiculopathy, lumbosacral region; I10 Essential (primary) hypertension; F17.210 Nicotine dependence, cigarettes, uncomplicated; Z79.899 Other long term (current) drug therapy
CPT/HCPCS: 64635; 64636; J3301; Q9967

== ENCOUNTER → 2017-01-15 | Outpatient (CLI) | payer MEDICARE, OTHER ==
[~2017-01-15] MED LIST changes: -BUPIVACAINE HCL 0.25% 30 ML VIAL As Ordered ONE; -ISOVUE-M 300 61% 15ML VIAL (Q9967) As Ordered ONE; -LIDOCAINE 1% SDV INJ 30 ML VIAL As Ordered ONE; -TRIAMCINOLONE ACETONIDE SUSP 40 MG/ML VIAL (J3301) As Ordered ONE
--- NOTE | 2017-02-04 01:53 | ECWPNPC ---
PATIENT NAME: KRISTINE BAEZ : 1955 GENDER: MALE VISIT DATE: 01/15/2017 DISCHARGE DATE: 01/15/17 1641 VISIT LOCKED DATE TIME: PHYSICIAN: ROLANDA NAPOLES RESOURCE: ROLANDA NAPOLES REASON FOR APPOINTMENT 1. BACK PAIN HISTORY OF PRESENT ILLNESS HISTORY OF PRESENT ILLNESS: PAIN THE PATIENT DESCRIBES THE PAIN... 61 YEAR OLD MALE PATIENT WITH HISTORY OF CHRONIC LOW BACK PAIN. PATIENT DESCRIBES THE PAIN ACHING WITH A PAIN SCORE OF 5/10. PATIENT RECEIVED A RADIOFREQUENCY OVER THE LEFT SIDE AND REPORTS HAVING OVER 50% RELIEF FROM THE PAIN WITH INCREASED MOBILITY AND FUNCTIONALITY. PATIENT REPORTS THAT HIS MEDICATION KEEPS HIM MOBILE AND FUNCTIONAL. PATIENT DENIES UNEXPLAINABLE WEIGHT LOSS, FEVER, CHILLS, NEW CHANGES ON HER URINARY OR BOWEL CONTROL. FALL RISK SCREENING: SCREENING :NO FALLS IN THE PAST YEAR CURRENT MEDICATIONS TAKING TIZANIDINE HCL 4 MG TABLET 1 TABLET NEEDED ORALLY BEFORE BEDTIME FOR SPASMS AND PAIN TAKING BACLOFEN 20 MG TABLET 1 TABLET WITH FOOD OR MILK ORALLY BID FOR SPASMS AND PAIN TAKING SERTRALINE HCL 50 MG TABLET 1 TABLET ORALLY ONCE A DAY TAKING LISINOPRIL 10 MG TABLET 1 TABLET ORALLY ONCE A DAY TAKING PANTOPRAZOLE SODIUM 40 MG TABLET DELAYED RELEASE 1 TABLET ORALLY ONCE A DAY TAKING AMITRIPTYLINE HCL 25 MG TABLET 1 TABLET AT BEDTIME ORALLY ONCE A DAY TAKING GABAPENTIN 800 MG TABLET 1 TABLET ORALLY THREE TIMES A DAY TAKING MELOXICAM 7.5 MG TABLET 1 TABLET ORALLY ONCE A DAY PRN FOR PAIN TAKING PRIMIDONE 50 MG TABLET ORALLY AT BEDTIME, NOTES: 3 DAYS AGO TAKING ZOFRAN 4 MG TABLET 2 TABLETS ORALLY QID PRN NOT-TAKING PREDNISONE 50 MG TABLET 2 TABLET ORALLY ONCE A DAY MEDICATION LIST REVIEWED AND RECONCILED WITH THE PATIENT PAST MEDICAL HISTORY HYPERTENSION ALLERGIES N.K.D.A. SURGICAL HISTORY REMOVAL LYMPH NODES FROM UNDER LEFT LUNG 20 YRS AGO TRIGGER FINGER RELEASE RIGHT HAND 2015 REMOVAL SCAR TISSUE RIGHT HAND 10/2015 REMOVAL OF CYST RIGHT HAND 10/2016 SOCIAL HISTORY GENERAL: TOBACCO USE ARE YOU A:CURRENT SMOKER HOW OFTEN DO YOU SMOKE CIGARETTES?EVERY DAY HOW SOON AFTER YOU WAKE UP DO YOU SMOKE YOUR FIRST CIGARETTE?WITHIN 5 MIN HOW MANY CIGARETTES A DAY DO YOU SMOKE?21-30 ARE YOU INTERESTED IN QUITTING?NOT READY TO QUIT PATIENT COUNSELED ON THE DANGERS OF TOBACCO USE AND URGED TO QUIT:11/04/2016 COUNSELED THE PATIENT ON SMOKING EFFECTS, EDUCATION [id number]/16/2017 SMOKING CESSATION INFORMATION GIVEN01/07/2017 CAFFEINE CAFFEINE USE?YES HOW OFTEN AND HOW MUCH? 6 CUPS PER DAY LEARNING BARRIERS / SPECIAL NEEDS CHANGE FROM LAST VISIT?NO PAIN CLINIC PFS, CLERGY, PUBLIC HEALTH REFERRALS PFS REFERRAL NEEDED?NO CLERGY REFERRAL NEEDED?NO PUBLIC HEALTH REFERRAL NEEDED?NO WAS THE PROVIDER NOTIFIED OF ANY PERTINENT INFO?YES HAS THE PATIENT BEEN EDUCATED REGARDING HIS/HER PLAN OF CARE?YES HAS THE PATIENT BEEN EDUCATED REGARDING PAIN, THE RISK FOR PAIN, THE IMPORTANCE OF EFFECTIVE PAIN MANAGEMENT, AND THE PAIN ASSESSMENT PROCESS?YES REVIEWED BY: BILL. PATIENT: ____. REVIEW OF SYSTEMS REVIEWED BY: PROVIDER: ROLANDA NAPOLES MD . CONSTITUTIONAL: ANY CHANGE IN YOUR MEDICAL CONDITION? NO . CHILLS NO . FEVER NO . INFECTION: DO YOU HAVE NEW INFECTIONS? NO . DO YOU HAVE HISTORY OF MRSA? NO . MUSCULOSKELETAL: ANY NEW PATTERNS OF PAIN OR NUMBNESS? NO . GASTROENTEROLOGY: ANY NEW CHANGE IN BOWEL CONTROL? NO . GENITOURINARY: ANY NEW CHANGE IN BLADDER CONTROL? NO . IS THERE A CHANCE YOU COULD BE ? NO . HEMATOLOGY/LYMPH: DO YOU TAKE ANY BLOOD THINNERS? (FOR EXAMPLE- COUMADIN, PLAVIX, AGGRENOX, PLATEL, PRADAXA, OR XARELTO) NO . WHEN WAS YOUR LAST DOSE? DATE: TIME: . NEUROLOGY: HAVE YOU FALLEN IN THE PAST 6 MONTHS? YES, PT REPORTS FALLING FROM WEAKNESS IN RIGHT KNEE. PT DENIES SEEKING MEDICAL [place] . ANY NEW EXTREMITY NUMBNESS OR WEAKNESS? NO . CARDIOLOGY: DO YOU HAVE A PACEMAKER OR DEFIBRILLATOR? NO . RESPIRATORY: HAVE YOU BEEN SICK IN THE PAST WEEK? NO . FEVER NO . FLU LIKE SYMPTOMS? NO . COUGH NO . INTEGUMENTARY: DO YOU HAVE ANY RASHES OR OPEN SORES? NO . ALLERGIC/IMMUNO: ARE YOU ALLERGIC TO SHELLFISH OR IV DYE? NO . ANY NEW ALLERGIES? NO . PSYCHIATRIC: DO YOU HAVE THOUGHTS OF HURTING YOURSELF OR SOMEONE ELSE? NO . ARE YOU ABUSED, NEGLECTED, OR IN AN UNSAFE ENVIRONMENT? NO . ENDOCRINOLOGY: ARE YOU DIABETIC? NO . OTHER: DO YOU NEED ANY PRESCRIPTIONS? NO . IF YES, PLEASE LIST: ____ . ANY NEW PROBLEMS WITH YOUR MEDICATIONS? NO . WHEN DID YOU LAST EAT? ____ . WHEN DID YOU LAST DRINK? ____ . WHAT DID YOU LAST DRINK? ____ . NAME OF PERSON DRIVING YOU HOME? ____ . DO YOU HAVE ANY OTHER QUESTIONS OR CONCERNS NO . VITAL SIGNS WT 180.4 LBS, HT 67 IN, BMI 28.25 INDEX, BP 138/80 MM HG, HR 69 /MIN, RR 16 /MIN, TEMP 97.0 F, OXYGEN SAT % 96%, NA INITIALS TL 1515, REVIEWED BY: EM. EXAMINATION : PATIENT IS ALERT O X 3 AND COOPERATIVE. THERE IS TENDERNESS IN THE LOWER BACK AND IN THE PARASPINAL MUSCLE GROUP AT THE RIGHT SIDE. MRI SPINE DONE ON 01/25/13 SHOWS FACET ARTHROPATHY CHANGES. ASSESSMENTS SPONDYLOSIS OF LUMBAR REGION WITHOUT MYELOPATHY OR RADICULOPATHY - M47.816 (PRIMARY) SPONDYLOSIS OF LUMBOSACRAL REGION WITHOUT MYELOPATHY OR RADICULOPATHY - M47.817 TREATMENT SPONDYLOSIS OF LUMBAR REGION WITHOUT MYELOPATHY OR RADICULOPATHY NOTES: WE DISCUSSED SEVERAL ISSUES WITH MR. BAEZ PAIN MANAGEMENT CASE. AT THIS TIME THE PATIENT WILL CONTINUE WITH THE SAME MEDICATION REGIME BEFORE. PATIENT REPORTS HAVING OVER 50% RELIEF FROM THE RADIOFREQUENCY DONE ON 01/07/17. AT THIS TIME THE PATIENT STATES THAT HE DOES NOT NEED INTERVENTIONS HE HAD SUCH GOOD RELIEF FROM THE INJECTION. PATIENT WILL FOLLOW UP IN 2 MONTHS WITH THE GLOBAL LEAD TO FURTHER DISCUSS HIS CASE. INSTRUCTIONS WERE GIVEN, QUESTIONS WERE ANSWERED, PATIENT REPORTS UNDERSTANDING AND AGREES WITH THE PLAN. I, GHASSAN SHAW, DOCUMENTED THE ABOVE INFORMATION ACTING A SCRIBE FOR DR. NAPOLES. I HAVE REVIEWED THE ABOVE DOCUMENT, WRITTEN BY GHASSAN EVANS AND I VERIFY THAT IT IS ACCURATE. PROCEDURE CODES FA211 ESTABILISHED PATIENT [facility] CHARGE G8427 DOC MEDS VERIFIED W/PT OR RE G8730 PAIN ASSESS POS TOOL F/U PLAN DOC DISPOSITION & COMMUNICATION FOLLOW UP 2 MONTHS ELECTRONICALLY SIGNED BY ROLANDA NAPOLES MD ON 02/02/2017 AT 12:15 PM EST DISCLAIMER : THIS IS A VISIT SUMMARY EXTRACTED FROM THE [employer] CHART. IT IS NOT A COPY OF THE [employer] PROGRESS NOTE. LEONILA
== END ==
LOC: M PAIN 15:45
PROVIDERS: ATTEND Anesthesiology
DX: M47.816 Spondylosis without myelopathy or radiculopathy, lumbar region (principal); M47.817 Spondylosis without myelopathy or radiculopathy, lumbosacral region; M54.5 Low back pain; I10 Essential (primary) hypertension; F17.210 Nicotine dependence, cigarettes, uncomplicated; G89.29 Other chronic pain; Z79.899 Other long term (current) drug therapy

== ENCOUNTER 2017-01-25 09:10 | Emergency (ER) | payer MEDICARE, OTHER ==
[~2017-01-25] VITALS: Ht 172.7 cm; Wt 81.8 kg
[~2017-01-25 09:10] MED LIST changes: -GABA800T; -LISI-538; -PERC5TAB12 PO; -PRIM50TA6
[2017-01-25 09:11] VITALS: BP 164/80
[2017-01-25] MEDS ORDERED: GABA800T (09:24)
[2017-01-25] MEDS ORDERED: PRIM50TA6 (09:24)
[2017-01-25] MEDS ORDERED: LISI-538 (09:24)
[2017-01-25] MEDS ORDERED: PERCOCET 5MG/325MG TAB PO ONE (10:15)
--- NOTE | 2017-01-25 11:04 | REP ---
PA CHEST AND RIGHT RIBS: 01/25/2017. Comparison: Portable chest 04/30/2016, PA and lateral chest 03/27/2016. Clinical history: Trauma, right lower posterior ribs. Findings: PA chest: Lungs are well inflated. I see no pleural effusion, lateral pleural thickening, apical scarring or pneumothorax. There are underlying fibrotic changes and pulmonary artery hypertension suggested with prominent central pulmonary arteries. No infiltrate, effusion or atelectasis. Heart is not enlarged. The aorta is normal for age. Airway intact. Visualized clavicles and shoulders intact. Ribs grossly intact. Right rib series: The posterior rib articulations are intact as are the vertebral body heights on oblique view. I do not see visible or displaced rib fracture, focal rib lesion, pleural effusion or pneumothorax. The lateral and anterior ribs are also grossly intact. There are degenerative changes at the glenohumeral joint. Impression: 1. PA chest without acute finding. 2. No visible or displaced rib fractures, pleural effusion, pneumothorax or other acute bony finding. There are degenerative changes at the glenohumeral joint. Signed by Allen Ivan MD 01/25/2017 01:19 P
[2017-01-25] MEDS ORDERED: PERC5TAB12 PO (11:25)
== END 2017-01-25 11:32 | disposition home or self-care (01) ==
LOC: M ED 09:10
DX: S20.211A Contusion of right front wall of thorax, initial encounter (principal); Z72.0 Tobacco use; W01.198A Fall on same level from slipping, tripping and stumbling with subsequent striking against other object, initial encounter; Y92.89 Other specified places as the place of occurrence of the external cause; Y93.01 Activity, walking, marching and hiking; Y99.9 Unspecified external cause status

== ENCOUNTER → 2017-02-22 | Outpatient (CLI) | payer MEDICARE, OTHER ==
[~2017-02-22] MED LIST changes: +GABA800T; +LISI-538; +PERC5TAB12 PO; +PRIM50TA6
== END ==
LOC: M PAIN 11:15
PROVIDERS: ATTEND Nurse Practitioner Family
DX: M47.816 Spondylosis without myelopathy or radiculopathy, lumbar region (principal); M54.5 Low back pain; G89.29 Other chronic pain; I10 Essential (primary) hypertension; F17.210 Nicotine dependence, cigarettes, uncomplicated; Z79.899 Other long term (current) drug therapy

== ENCOUNTER 2017-04-24 18:34 | Emergency (ER) | payer MEDICARE, MEDICAID, OTHER ==
[2017-04-24] MEDS: PANTOPRAZOLE 40MG INJ (PROTONIX) (C9113) IV (20:34)
[2017-04-24] MEDS: ONDANSETRON 4MG/2ML VIAL (J2405) IV (20:34)
[2017-04-24] MEDS: NS 1,000 ML IV (20:35)
[2017-04-24] MEDS: MORPHINE 2 MG/ML 1ML SYRINGE IV ×2 (20:35→20:53)
[2017-04-24 20:45] LABS: BASO # 0.1 10^3/uL (0.0-0.2); BASO % 0.4 % (0.0-1.0); EOS # 0.1 10^3/uL (0.0-0.50); EOS % 0.3 % (0.0-3.0); HEMATOCRIT 47.3 % (42.0-52.0); HEMOGLOBIN 16.3 g/dl (14.0-18.0); IMMATURE GRANULOCYTE # 0.1 10^3/uL (0-0); IMMATURE GRANULOCYTE % 0.4 % (0-0); LYMPH # 2.2 10^3/uL (1.5-4.5); LYMPH % 13.7 % (24.0-44.0); MEAN CORPUSCULAR HEMOGLOBIN 31.6 pg (27.0-33.0); MEAN CORPUSCULAR HGB CONC 34.5 g/dl (32.0-36.5); MEAN CORPUSCULAR VOLUME 91.7 fl (80.0-96.0); MONO # 1.1 10^3/uL (0.0-0.8); MONO % 6.8 % (0.0-5.0); NEUTROPHILS # 12.7 10^3/uL (1.8-7.7); NEUTROPHILS % 78.4 % (36.0-66.0); PLATELET COUNT, AUTOMATED 309 10^3/uL (150-450); RED BLOOD COUNT 5.16 10^6/uL (4.30-6.10); RED CELL DISTRIBUTION WIDTH 12.8 % (11.5-14.5); WHITE BLOOD COUNT 16.2 10^3/uL (4.0-10.0)
[2017-04-24] MEDS: ALBUTEROL SULFATE 2.5 MG/0.5 ML INH NEB SOLN NEB (20:45)
[2017-04-24 20:57] LABS: INR 1.05; PROTHROMBIN TIME 13.8 SECONDS (12.4-14.5)
[2017-04-24 20:58] LABS: PARTIAL THROMBOPLASTIN TIME 41.7 SECONDS (26.8-37.9)
[2017-04-24 21:15] LABS: LACTIC ACID SEPSIS PROTOCOL 1.2 MMOL/L (0.4-2.0)
[2017-04-24 21:16] LABS: ALBUMIN 4.4 GM/DL (3.2-5.2); ALBUMIN/GLOBULIN RATIO 0.96 (1.00-1.93); ALKALINE PHOSPHATASE 143 U/L (45-117); ALT/SGPT 27 U/L (12-78); ANION GAP 5 MEQ/L (8-16); AST/SGOT 13 U/L (7-37); BILIRUBIN,DIRECT 0.2 MG/DL (0.0-0.2); BILIRUBIN,TOTAL 1.5 MG/DL (0.2-1.0); BLOOD UREA NITROGEN 16 MG/DL (7-18); CALCIUM LEVEL 9.1 MG/DL (8.8-10.2); CARBON DIOXIDE LEVEL 31 MEQ/L (21-32); CHLORIDE LEVEL 100 MEQ/L (98-107); CREATININE FOR GFR 0.93 MG/DL (0.70-1.30); GLOMERULAR FILTRATION RATE > 60.0 (>49); GLUCOSE, FASTING 106 MG/DL (70-100); LIPASE 67 U/L (73-393); POTASSIUM SERUM 3.6 MEQ/L (3.5-5.1); SODIUM LEVEL 136 MEQ/L (136-145)
[2017-04-24] MEDS ORDERED: ISOVUE-370 76% 100ML VIAL (Q9967) As Ordered (21:17)
[2017-04-24 22:01] LABS: KETONE, URINE AUTO RFX NEGATIVE (NEGATIVE); LEUKOCYTE ESTERASE UR AUTO RFX NEGATIVE (NEGATIVE); MUCUS, URINE RFX MODERATE (NEGATIVE); NITRITE, URINE AUTO RFX NEGATIVE (NEGATIVE); RBC, URINE AUTO RFX 1 /HPF (0-3); SPECIFIC GRAVITY UR AUTO RFX 1.027 (1.002-1.035); SQUAM EPITHELIAL CELL UR AURFX 0 /HPF (0-6); WBC, URINE AUTO RFX 3 /HPF (0-3)
[2017-04-24] MEDS: DOXYCYCLINE HYCLATE 100 MG TAB PO (23:07)
[2017-04-24] MEDS: ONDANSETRON 4 MG ORAL DISINTEGRATING TAB (S0181) PO (23:08)
[2017-04-24] MEDS: predniSONE 20 MG TAB PO (23:08)
== END 2017-04-24 23:17 | disposition home or self-care (01) ==
LOC: M ED 18:34
DX: J18.1 Lobar pneumonia, unspecified organism (principal); J44.1 Chronic obstructive pulmonary disease with (acute) exacerbation; I10 Essential (primary) hypertension; M54.9 Dorsalgia, unspecified; F32.9 Major depressive disorder, single episode, unspecified; G47.30 Sleep apnea, unspecified; F17.200 Nicotine dependence, unspecified, uncomplicated; Z79.899 Other long term (current) drug therapy
CPT/HCPCS: C9113

== ENCOUNTER → 2017-04-27 | Outpatient (CLI) | payer MEDICARE, OTHER, MEDICAID | LOC: M PAIN 10:30 | DX: M47.816 Spondylosis without myelopathy or radiculopathy, lumbar region (principal); G89.29 Other chronic pain; I10 Essential (primary) hypertension; F17.210 Nicotine dependence, cigarettes, uncomplicated; Z79.899 Other long term (current) drug therapy | CPT/HCPCS: G0463 ==

== ENCOUNTER 2017-05-20 08:22 | Emergency (ER) | payer MEDICARE, OTHER ==
[2017-05-20] MEDS: PANTOPRAZOLE 40MG INJ (PROTONIX) (C9113) IV (09:30)
[2017-05-20] MEDS: NS 1,000 ML IV (09:30)
[2017-05-20] MEDS: ALBUTEROL SULFATE 2.5 MG/0.5 ML INH NEB SOLN NEB (09:30)
[2017-05-20] MEDS: methylPREDNISolone INJ 125 MG/2 ML VIAL (J2930) IV (09:30)
[2017-05-20 10:33] LABS: BASO # 0.1 10^3/uL (0.0-0.2); BASO % 0.6 % (0.0-1.0); EOS # 0.5 10^3/uL (0.0-0.50); EOS % 4.5 % (0.0-3.0); HEMATOCRIT 43.9 % (42.0-52.0); HEMOGLOBIN 14.7 g/dl (14.0-18.0); LYMPH # 2.3 10^3/uL (1.5-4.5); LYMPH % 23.1 % (24.0-44.0); MEAN CORPUSCULAR HEMOGLOBIN 31.5 pg (27.0-33.0); MEAN CORPUSCULAR HGB CONC 33.5 g/dl (32.0-36.5); MONO # 0.7 10^3/uL (0.0-0.8); MONO % 7.5 % (0.0-5.0); NEUTROPHILS # 6.3 10^3/uL (1.8-7.7); NEUTROPHILS % 63.3 % (36.0-66.0); PLATELET COUNT, AUTOMATED 275 10^3/uL (150-450); RED BLOOD COUNT 4.67 10^6/uL (4.30-6.10); RED CELL DISTRIBUTION WIDTH 13.3 % (11.5-14.5); WHITE BLOOD COUNT 9.9 10^3/uL (4.0-10.0)
[2017-05-20 10:55] LABS: INFLUENZA A AMPLIFICATION NEGATIVE (NEGATIVE); INFLUENZA B AMPLIFICATION NEGATIVE (NEGATIVE)
[2017-05-20 10:56] LABS: ALBUMIN 3.6 GM/DL (3.2-5.2); ALBUMIN/GLOBULIN RATIO 1.06 (1.00-1.93); ALKALINE PHOSPHATASE 132 U/L (45-117); ALT/SGPT 27 U/L (12-78); ANION GAP 6 MEQ/L (8-16); AST/SGOT 20 U/L (7-37); BILIRUBIN,DIRECT < 0.1 MG/DL (0.0-0.2); BILIRUBIN,TOTAL 0.3 MG/DL (0.2-1.0); BLOOD UREA NITROGEN 8 MG/DL (7-18); CALCIUM LEVEL 8.7 MG/DL (8.8-10.2); CARBON DIOXIDE LEVEL 28 MEQ/L (21-32); CHLORIDE LEVEL 109 MEQ/L (98-107); CREATININE FOR GFR 0.86 MG/DL (0.70-1.30); GLOMERULAR FILTRATION RATE > 60.0 (>49); GLUCOSE, FASTING 83 MG/DL (70-100); NT-PRO BNP 90 PG/ML (<125); POTASSIUM SERUM 4.3 MEQ/L (3.5-5.1); SODIUM LEVEL 143 MEQ/L (136-145)
[2017-05-20 11:12] LABS: D-DIMER QUANT 342.2 ng/ml (<500)
[2017-05-20] MEDS ORDERED: ISOVUE-370 76% 100ML VIAL (Q9967) As Ordered (11:19)
[2017-05-20 13:31] LABS: TROPONIN I < 0.02 NG/ML (< 0.10)
== END 2017-05-20 14:10 | disposition home or self-care (01) ==
LOC: M ED 08:22
DX: K21.9 Gastro-esophageal reflux disease without esophagitis (principal); J84.10 Pulmonary fibrosis, unspecified; R93.8 Abnormal findings on diagnostic imaging of other specified body structures; R94.31 Abnormal electrocardiogram [ECG] [EKG]; I10 Essential (primary) hypertension; R25.1 Tremor, unspecified; F17.210 Nicotine dependence, cigarettes, uncomplicated; Z79.899 Other long term (current) drug therapy; Z87.09 Personal history of other diseases of the respiratory system; Z86.69 Personal history of other diseases of the nervous system and sense organs; Z98.890 Other specified postprocedural states; Z82.49 Family history of ischemic heart disease and other diseases of the circulatory system
CPT/HCPCS: C9113

== ENCOUNTER → 2017-06-08 | Outpatient (CLI) | payer MEDICARE, OTHER | LOC: M PAIN 09:15 | DX: M47.816 Spondylosis without myelopathy or radiculopathy, lumbar region (principal); G89.29 Other chronic pain; I10 Essential (primary) hypertension; J98.4 Other disorders of lung; F17.210 Nicotine dependence, cigarettes, uncomplicated; Z79.899 Other long term (current) drug therapy | CPT/HCPCS: G0463 ==

== ENCOUNTER → 2017-07-01 | Outpatient (CLI) | payer MEDICARE, OTHER, MEDICAID | LOC: M PAIN 13:45 | DX: G89.29 Other chronic pain (principal); M47.816 Spondylosis without myelopathy or radiculopathy, lumbar region; I10 Essential (primary) hypertension; J84.10 Pulmonary fibrosis, unspecified; M25.552 Pain in left hip; F17.210 Nicotine dependence, cigarettes, uncomplicated; M25.561 Pain in right knee; H04.123 Dry eye syndrome of bilateral lacrimal glands; Z79.899 Other long term (current) drug therapy | CPT/HCPCS: G0463 ==

== ENCOUNTER → 2017-07-20 | Outpatient (CLI) | payer MEDICARE, OTHER, MEDICAID ==
[~2017-07-20] MED LIST changes: -AMIT25TA PO; -BACL10TA2 PO; +BUPIVACAINE HCL 0.25% 30 ML VIAL As Ordered; -GABA800T; +ISOVUE-M 300 61% 15ML VIAL (Q9967) As Ordered; +LIDOCAINE 1% SDV INJ 30 ML VIAL As Ordered; -LISI-538; -LISI10TA4 PO; -MOBI4TAB PO; -NEUR400C PO; -PANT40TA2 PO; -PERC5TAB12 PO; -PRIM50TA6; -SERT50TA PO; -TIZA4CAP3 PO; -ZOFR20TA PO
== END ==
LOC: M PAIN 10:45
DX: G89.29 Other chronic pain (principal); M47.816 Spondylosis without myelopathy or radiculopathy, lumbar region; I10 Essential (primary) hypertension; J84.10 Pulmonary fibrosis, unspecified; M25.552 Pain in left hip; M25.561 Pain in right knee; H04.123 Dry eye syndrome of bilateral lacrimal glands; Z79.899 Other long term (current) drug therapy
CPT/HCPCS: Q9967

== ENCOUNTER → 2017-08-04 | Outpatient (CLI) | payer MEDICARE, MEDICAID ==
[2017-08-04 09:43] LABS: ALBUMIN/GLOBULIN RATIO 1.14 (1.00-1.93); ALKALINE PHOSPHATASE 110 U/L (45-117); ALT/SGPT 27 U/L (12-78); AMYLASE 46 U/L (25-115); ANION GAP 8 MEQ/L (8-16); AST/SGOT 18 U/L (7-37); BILIRUBIN,TOTAL 0.5 MG/DL (0.2-1.0); BLOOD UREA NITROGEN 15 MG/DL (7-18); CALCIUM LEVEL 8.7 MG/DL (8.8-10.2); CARBON DIOXIDE LEVEL 26 MEQ/L (21-32); CHLORIDE LEVEL 107 MEQ/L (98-107); CREATININE FOR GFR 0.95 MG/DL (0.70-1.30); GLOMERULAR FILTRATION RATE > 60.0 (>49); GLUCOSE, FASTING 157 MG/DL (70-100); LIPASE 101 U/L (73-393); POTASSIUM SERUM 4.2 MEQ/L (3.5-5.1); SODIUM LEVEL 141 MEQ/L (136-145); TOTAL PROTEIN 7.5 GM/DL (6.4-8.2)
== END ==
LOC: M RAD 08:49
DX: R10.9 Unspecified abdominal pain (principal)
CPT/HCPCS: 76705

== ENCOUNTER → 2017-08-05 | Outpatient (CLI) | payer MEDICARE, MEDICAID ==
[2017-08-05 16:10] LABS: HEMOGLOBIN 15.3 g/dl (13.5-17.5)
== END ==
LOC: M CARPUL 15:35
DX: R06.00 Dyspnea, unspecified (principal)
CPT/HCPCS: 94060

== ENCOUNTER → 2017-08-20 | Outpatient (CLI) | payer MEDICARE | LOC: M PAIN 11:00 | DX: G89.29 Other chronic pain (principal); M47.816 Spondylosis without myelopathy or radiculopathy, lumbar region; I10 Essential (primary) hypertension; J84.10 Pulmonary fibrosis, unspecified; M25.552 Pain in left hip; M25.561 Pain in right knee; H04.123 Dry eye syndrome of bilateral lacrimal glands; F17.210 Nicotine dependence, cigarettes, uncomplicated; Z79.899 Other long term (current) drug therapy | CPT/HCPCS: G0463 ==

== ENCOUNTER → 2017-08-31 | Outpatient (REF) | payer MEDICARE ==
[2017-08-31 13:38] LABS: D-DIMER QUANT 500.4 ng/ml (<500)
== END ==
LOC: M LAB REF 12:38
DX: R06.00 Dyspnea, unspecified (principal)
CPT/HCPCS: 85379

== ENCOUNTER → 2017-09-02 | Outpatient (CLI) | payer MEDICARE, MEDICAID ==
[~2017-09-02] MED LIST changes: -BUPIVACAINE HCL 0.25% 30 ML VIAL As Ordered; +ISOVUE-370 76% 100ML VIAL (Q9967) As Ordered; -ISOVUE-M 300 61% 15ML VIAL (Q9967) As Ordered; -LIDOCAINE 1% SDV INJ 30 ML VIAL As Ordered
[2017-09-02 07:48] LABS: BLOOD UREA NITROGEN 20 MG/DL (7-18)
[2017-09-02 07:48] LABS: CREATININE FOR GFR 0.94 MG/DL (0.70-1.30); GLOMERULAR FILTRATION RATE > 60.0 (>49)
== END ==
LOC: M RAD 07:28
DX: R06.00 Dyspnea, unspecified (principal)
CPT/HCPCS: Q9967

== ENCOUNTER → 2017-09-08 | Outpatient (CLI) | payer MEDICARE ==
[~2017-09-08] MED LIST changes: +BUPIVACAINE HCL 0.25% 30 ML VIAL As Ordered; -ISOVUE-370 76% 100ML VIAL (Q9967) As Ordered; +LIDOCAINE 1% SDV INJ 30 ML VIAL As Ordered; +TRIAMCINOLONE ACETONIDE SUSP 40 MG/ML VIAL (J3301) As Ordered
== END ==
LOC: M PAIN 10:00
DX: G89.29 Other chronic pain (principal); M47.816 Spondylosis without myelopathy or radiculopathy, lumbar region; I10 Essential (primary) hypertension; F17.210 Nicotine dependence, cigarettes, uncomplicated; Z79.899 Other long term (current) drug therapy
CPT/HCPCS: J3301

== ENCOUNTER → 2017-10-06 | Outpatient (CLI) | payer MEDICARE | LOC: M PAIN 15:15 | DX: M79.1 Myalgia (principal); M47.816 Spondylosis without myelopathy or radiculopathy, lumbar region; I10 Essential (primary) hypertension; J84.10 Pulmonary fibrosis, unspecified; M25.552 Pain in left hip; M25.561 Pain in right knee; H04.123 Dry eye syndrome of bilateral lacrimal glands; M25.551 Pain in right hip; F17.210 Nicotine dependence, cigarettes, uncomplicated; Z79.891 Long term (current) use of opiate analgesic; Z79.899 Other long term (current) drug therapy | CPT/HCPCS: G0463 ==

== ENCOUNTER → 2017-10-12 | Outpatient (CLI) | payer MEDICARE ==
[~2017-10-12] MED LIST changes: +BUPIVACAINE HCL 0.25% 10 ML VIAL As Ordered; -LIDOCAINE 1% SDV INJ 30 ML VIAL As Ordered
== END ==
LOC: M PAIN 13:00
DX: G89.29 Other chronic pain (principal); M79.1 Myalgia; M54.5 Low back pain; I10 Essential (primary) hypertension; F17.210 Nicotine dependence, cigarettes, uncomplicated; Z79.899 Other long term (current) drug therapy
CPT/HCPCS: J3301

== ENCOUNTER → 2017-11-03 | Outpatient (CLI) | payer MEDICARE | LOC: M PAIN 11:15 | DX: M53.3 Sacrococcygeal disorders, not elsewhere classified (principal); G89.29 Other chronic pain; I10 Essential (primary) hypertension; Z79.891 Long term (current) use of opiate analgesic; Z79.899 Other long term (current) drug therapy | CPT/HCPCS: G0463 ==

== ENCOUNTER → 2017-12-06 | Outpatient (CLI) | payer MEDICARE ==
[~2017-12-06] MED LIST changes: -BUPIVACAINE HCL 0.25% 10 ML VIAL As Ordered; +ISOVUE-M 300 61% 15ML VIAL (Q9967) As Ordered; +LIDOCAINE 1% SDV INJ 30 ML VIAL As Ordered
== END ==
LOC: M PAIN 11:00
DX: G89.29 Other chronic pain (principal); M46.1 Sacroiliitis, not elsewhere classified; M53.88 Other specified dorsopathies, sacral and sacrococcygeal region; I10 Essential (primary) hypertension; J84.10 Pulmonary fibrosis, unspecified; F17.210 Nicotine dependence, cigarettes, uncomplicated; Z79.891 Long term (current) use of opiate analgesic; Z79.899 Other long term (current) drug therapy; Z86.69 Personal history of other diseases of the nervous system and sense organs
CPT/HCPCS: J3301

== ENCOUNTER → 2017-12-27 | Outpatient (CLI) | payer MEDICARE | LOC: M PAIN 10:15 | DX: M46.1 Sacroiliitis, not elsewhere classified (principal); M51.14 Intervertebral disc disorders with radiculopathy, thoracic region; I10 Essential (primary) hypertension; F17.210 Nicotine dependence, cigarettes, uncomplicated; Z79.891 Long term (current) use of opiate analgesic; Z79.899 Other long term (current) drug therapy; Z86.69 Personal history of other diseases of the nervous system and sense organs | CPT/HCPCS: G0463 ==

== ENCOUNTER → 2018-01-10 | Outpatient (CLI) | payer MEDICARE ==
[~2018-01-10] MED LIST changes: -BUPIVACAINE HCL 0.25% 30 ML VIAL As Ordered; -TRIAMCINOLONE ACETONIDE SUSP 40 MG/ML VIAL (J3301) As Ordered; +methylPREDNISolone SUSP 40 MG/ML (DEPO-medrol) VIAL (J1030) As Ordered
== END ==
LOC: M PAIN 08:45
DX: G89.29 Other chronic pain (principal); M51.17 Intervertebral disc disorders with radiculopathy, lumbosacral region; I10 Essential (primary) hypertension; F17.210 Nicotine dependence, cigarettes, uncomplicated; Z79.891 Long term (current) use of opiate analgesic; Z79.899 Other long term (current) drug therapy; Z86.69 Personal history of other diseases of the nervous system and sense organs
CPT/HCPCS: J1030

== ENCOUNTER → 2018-01-12 | Outpatient (CLI) | payer MEDICARE | LOC: M RAD 15:32 | DX: M51.86 Other intervertebral disc disorders, lumbar region (principal); M51.87 Other intervertebral disc disorders, lumbosacral region; M51.14 Intervertebral disc disorders with radiculopathy, thoracic region | CPT/HCPCS: 72148 ==

== ENCOUNTER → 2018-01-26 | Outpatient (CLI) | payer MEDICARE | LOC: M PAIN 08:30 | DX: M46.1 Sacroiliitis, not elsewhere classified (principal); M51.14 Intervertebral disc disorders with radiculopathy, thoracic region; I10 Essential (primary) hypertension; J84.10 Pulmonary fibrosis, unspecified; M25.552 Pain in left hip; M25.551 Pain in right hip; M25.561 Pain in right knee; F17.210 Nicotine dependence, cigarettes, uncomplicated; H04.123 Dry eye syndrome of bilateral lacrimal glands; Z79.891 Long term (current) use of opiate analgesic; Z79.899 Other long term (current) drug therapy | CPT/HCPCS: G0463 ==

== ENCOUNTER → 2018-03-29 | Outpatient (CLI) | payer MEDICARE ==
[~2018-03-29] MED LIST changes: +AMIT25TA PO; +BACL10TA2 PO; +DOXY100C37 PO; +GABA800T4; -ISOVUE-M 300 61% 15ML VIAL (Q9967) As Ordered; -LIDOCAINE 1% SDV INJ 30 ML VIAL As Ordered; +LISI-538; +LISI10TA4 PO; +MOBI4TAB PO; +NEUR400C PO; +PANT40TA3 PO; +PERC5TAB12 PO; +PRED20TA PO; +PRIM50TA6; +SERT50TA PO; +TIZA4CAP PO; +VENTAER INH; +ZOFR4TAB14 PO; +ZOFR4TAB16 PO; -methylPREDNISolone SUSP 40 MG/ML (DEPO-medrol) VIAL (J1030) As Ordered
--- NOTE | 2018-04-18 01:35 | ECWPNPC ---
PATIENT NAME: KRISTINE BAEZ : 1955 GENDER: MALE VISIT DATE: 03/29/2018 DISCHARGE DATE: 03/29/18 1000 VISIT LOCKED DATE TIME: PHYSICIAN: YAMILE HUNT RESOURCE: YAMILE HUNT REASON FOR APPOINTMENT 1. BACK PT ON HIS WAY HISTORY OF PRESENT ILLNESS HISTORY OF PRESENT ILLNESS: HERE FOR F/U OF CHRONIC LOW BACK PAIN AND BILATERAL LEG PAIN.PAIN HAS BECOME AGGREVATED LATELY.RATING PAIN VAS 7/10.HAVING BILATERAL KNEE PAIN WHICH HAS BEEN A CHRONIC ISSUE.CHIEF AREA OF PAIN IS LUMBAR PARASPINAL REGION L>R. PAIN THE PATIENT DESCRIBES THE PAIN... FALL RISK SCREENING: SCREENING :TWO OR MORE FALLS WITHOUT INJURY IN THE PAST YEAR CURRENT MEDICATIONS TAKING SERTRALINE HCL 50 MG TABLET 1 TABLET ORALLY ONCE A DAY TAKING LISINOPRIL 10 MG TABLET 1 TABLET ORALLY ONCE A DAY TAKING PANTOPRAZOLE SODIUM 40 MG TABLET DELAYED RELEASE 1 TABLET ORALLY ONCE A DAY TAKING ZOFRAN 4 MG TABLET 2 TABLETS ORALLY QID PRN TAKING SYSTANE 0.4-0.3 % SOLUTION 2 DROPS BOTH EYES OPHTHALMIC 2X/DAY TAKING TIZANIDINE HCL 4 MG TABLET 2 ORALLY AM AND PM PRN TAKING MELOXICAM 15 MG TABLET 1 TABLET ORALLY DAILY NOT-TAKING ALBUTEROL SULFATE 108 (90 BASE) MCG/ACT AEROSOL POWDER BREATH ACTIVATED 2 PUFFS NEEDED INHALATION EVERY 6 HRS NOT-TAKING FISH OIL 1000 MG CAPSULE 1 CAPSULE ORALLY ONCE A DAY NOT-TAKING TRAMADOL HCL 50 MG TABLET 2 ORALLY Q8H PRN MDD6 #45 TAB SHOULD LAST 30 DAYS NOT-TAKING GABAPENTIN 800 MG TABLET 1 TABLET ORALLY THREE TIMES A DAY MEDICATION LIST REVIEWED AND RECONCILED WITH THE PATIENT PAST MEDICAL HISTORY HYPERTENSION PNEUMONIA FIBROSIS OF LUNGS CHRONIC BACK PAIN PAIN LEFT HIP PAIN RIGHT KNEE DRY EYES RIGHT HIP PAIN BELLS PALSY ALLERGIES N.K.D.A. SURGICAL HISTORY REMOVAL LYMPH NODES FROM UNDER LEFT LUNG 20 YRS AGO TRIGGER FINGER RELEASE RIGHT HAND 2015 REMOVAL SCAR TISSUE RIGHT HAND 10/2015 REMOVAL OF CYST RIGHT HAND 10/2016 FAMILY HISTORY FATHER: , DIAGNOSED WITH OTHER MOTHER: 1 SON(S) , 1 DAUGHTER(S) - HEALTHY. DAD- BRAIN ANEURYSMMOM-PARITINITIS. SOCIAL HISTORY GENERAL: TOBACCO USE ARE YOU A:CURRENT SMOKER ARE YOU INTERESTED IN QUITTING?NOT READY TO QUIT HAS TRIED CHANTIX BUT IT MADE HIM VOMIT, STATES QUITTING NEVER WORKS. COUNSELED THE PATIENT ON SMOKING EFFECTS, EDUCATION [id number]/08/2019 HOW MANY CIGARETTES A DAY DO YOU SMOKE?21-30 HOW SOON AFTER YOU WAKE UP DO YOU SMOKE YOUR FIRST CIGARETTE?WITHIN 5 MIN HOW OFTEN DO YOU SMOKE CIGARETTES?EVERY DAY PATIENT COUNSELED ON THE DANGERS OF TOBACCO USE AND URGED TO QUIT:03/29/2018 SMOKING CESSATION INFORMATION GIVEN12/27/2017 01/10/18 PT DECLLINED ALCOHOL SCREENING DID YOU HAVE A DRINK CONTAINING ALCOHOL IN THE PAST YEAR?NO POINTS0 INTERPRETATIONNEGATIVE RECREATIONAL DRUG USE DRUG USE?NO CAFFEINE CAFFEINE USE?YES HOW OFTEN AND HOW MUCH? 6 CUPS PER DAY MUSLIM [id number] [place]INTO LANGUAGE LANGUAGES SPOKEN:ICELANDIC EDUCATION LEVEL OF EDUCATION: GED LEARNING BARRIERS / SPECIAL NEEDS CHANGE FROM LAST VISIT?NO BARRIERS TO LEARNING?NO HEARING IMPAIRED?NO VISION IMPAIRED?YES COGNITIVELY IMPAIRED?NO :CORRECTIVE LENSES READINESS TO LEARN?YES LEARNING PREFERENCES?YES :TAPES/VIDEOS LEARNING CAPABILITIES PRESENT?YES EMOTIONAL BARRIERS?NO SPECIAL DEVICES?YES :CANE TECHNICAL OPERATIONS SPECIALIST NEEDED?NO DOMESTIC VIOLENCE DO YOU FEEL SAFE IN YOUR ENVIRONMENT?YES PAIN CLINIC PFS, CLERGY, PUBLIC HEALTH REFERRALS PFS REFERRAL NEEDED?NO CLERGY REFERRAL NEEDED?NO PUBLIC HEALTH REFERRAL NEEDED?NO WAS THE PROVIDER NOTIFIED OF ANY PERTINENT INFO? N/A HAS THE PATIENT BEEN EDUCATED REGARDING HIS/HER PLAN OF CARE?YES HAS THE PATIENT BEEN EDUCATED REGARDING PAIN, THE RISK FOR PAIN, THE IMPORTANCE OF EFFECTIVE PAIN MANAGEMENT, AND THE PAIN ASSESSMENT PROCESS?YES ADVANCE DIRECTIVE ADVANCE DIRECTIVE DISCUSSED WITH PATIENT:YES HCP - JEREMY COX (GIRLFRIEND) 10/06/17 1635 REVIEWED WITH PT. OROZCO WITH PATIENT 12/27/17 1031 JS01/10/18 1022 REVIEWED WITH PT. OROZCO WITH PATIENT 01/26/18 0907 JSREVIEWED WITH PATIENT 03/29/18 0915 LAS. HOSPITALIZATION/MAJOR DIAGNOSTIC PROCEDURE POST MVI >30 YRS AGO REVIEW OF SYSTEMS REVIEWED BY: PROVIDER: YAMILE CASAS . CONSTITUTIONAL: ANY CHANGE IN YOUR MEDICAL CONDITION? NO . CHILLS NO . FEVER NO . INFECTION: DO YOU HAVE NEW INFECTIONS? NO . DO YOU HAVE HISTORY OF MRSA? NO . MUSCULOSKELETAL: ANY NEW PATTERNS OF PAIN OR NUMBNESS? NO . GASTROENTEROLOGY: ANY NEW CHANGE IN BOWEL CONTROL? NO . GENITOURINARY: ANY NEW CHANGE IN BLADDER CONTROL? NO . IS THERE A CHANCE YOU COULD BE ? NO . HEMATOLOGY/LYMPH: DO YOU TAKE ANY BLOOD THINNERS? (FOR EXAMPLE- COUMADIN, PLAVIX, AGGRENOX, PLATEL, PRADAXA, OR XARELTO) NO . WHEN WAS YOUR LAST DOSE? DATE: TIME: . NEUROLOGY: HAVE YOU FALLEN IN THE PAST 6 MONTHS? PT REPORTS 2 FALLS, STATES HIS LEFT KNEE GAVE OUT, AND HE FELL TO GROUND. DENIES INJURIES, NO ED OR MD VISITS. PT USES CANE. . ANY NEW EXTREMITY NUMBNESS OR WEAKNESS? YES PT REPORTS HE FEELS AN INCREASING WEAKNESS IN BOTH LEGS, MAINLY AROUND KNEE AREA, SOMETIMES IN HIP. . CARDIOLOGY: DO YOU HAVE A PACEMAKER OR DEFIBRILLATOR? NO . RESPIRATORY: HAVE YOU BEEN SICK IN THE PAST WEEK? NO . FEVER NO . FLU LIKE SYMPTOMS? NO . COUGH NO . INTEGUMENTARY: DO YOU HAVE ANY RASHES OR OPEN SORES? NO . ALLERGIC/IMMUNO: ARE YOU ALLERGIC TO SHELLFISH OR IV DYE? NO . ANY NEW ALLERGIES? NO . PSYCHIATRIC: DO YOU HAVE THOUGHTS OF HURTING YOURSELF OR SOMEONE ELSE? NO . ARE YOU ABUSED, NEGLECTED, OR IN AN UNSAFE ENVIRONMENT? NO . ENDOCRINOLOGY: ARE YOU DIABETIC? NO . OTHER: DO YOU NEED ANY PRESCRIPTIONS? NO . IF YES, PLEASE LIST: ____ . ANY NEW PROBLEMS WITH YOUR MEDICATIONS? NO . WHEN DID YOU LAST EAT? ____ . WHEN DID YOU LAST DRINK? ____ . WHAT DID YOU LAST DRINK? ____ . NAME OF PERSON DRIVING YOU HOME? ____ . DO YOU HAVE ANY OTHER QUESTIONS OR CONCERNS YES PT STATES HE HAS STOPPED TAKING THE GABAPENTIN AND TRAMADOL, FEELS THEY WERE INEFFECTIVE . VITAL SIGNS WT 178 LBS, HT 67 IN, BMI 27.88 INDEX, BP 143/78 MM HG, HR 74 /MIN, RR 16 /MIN, TEMP 97.0 F, OXYGEN SAT % 94%, SAFE IN ENV? (Y/N) YES, NA INITIALS AW 0909, REVIEWED BY: SUSANA. EXAMINATION GENERAL EXAMINATION: GENERAL APPEARANCE:AWAKE,ALERT ,PLEAASANT . PSYCHAFFECT NORMAL . LUNGS:LUNG MENA ARE CLEAR TO AUSCULTATION BILATERALLY. GOOD MOVEMENT OF AIR . HEART:S1, S2 IN A REGULAR RATE AND RHYTHM. NO SIGNIFICANT MURMURS, RUBS OR GALLOPS NOTED . MUSCULOSKELETAL:MUSCLE STRENGTH TESTING 4/5 BILATERAL LOWER EXTREMITIES. LUMBAR SACRAL SPINETRIGGER POINTS:, ELICITED WITH PALPATION OVER LUMBAR PARAVERTEBRAL MUSCLES AND RESTRICTION OF ROM IN THIS AREA. ASSESSMENTS MYALGIA, OTHER SITE - M79.18 (PRIMARY) TREATMENT MYALGIA, OTHER SITE CONTINUE TIZANIDINE HCL TABLET, 4 MG, 2, ORALLY, AM AND PM PRN STOP MELOXICAM TABLET, 15 MG, 1 TABLET, ORALLY, DAILY STOP TRAMADOL HCL TABLET, 50 MG, 2, ORALLY, Q8H PRN MDD6 #45 TAB SHOULD LAST 30 DAYS STOP GABAPENTIN TABLET, 800 MG, 1 TABLET, ORALLY, THREE TIMES A DAY START CELEBREX CAPSULE, 200 MG, 1 CAPSULE WITH FOOD, ORALLY, BID, 30 DAY(S), 60 CAPSULE, REFILLS 2 NOTES: TPI LOW BACK L>RTAKE TIZANIDINE 4MG 3X DAY X 5 DAYSPT 2XWK X6 WK LUMBAR MYOFASCIAL RELEASE. PROCEDURE CODES FA211 ESTABILISHED PATIENT [facility] CHARGE DISPOSITION & COMMUNICATION FOLLOW UP POST (REASON: TPI LOW BACK L>R) ELECTRONICALLY SIGNED BY AUGUSTO KNOX ON 04/17/2018 AT 12:47 PM EST DISCLAIMER : THIS IS A VISIT SUMMARY EXTRACTED FROM THE [employer] CHART. IT IS NOT A COPY OF THE [employer] PROGRESS NOTE. LEONILA
== END ==
LOC: M PAIN 08:45
PROVIDERS: ATTEND Nurse Practitioner Family
DX: M79.18 Myalgia, other site (principal); M54.5 Low back pain; I10 Essential (primary) hypertension; F17.210 Nicotine dependence, cigarettes, uncomplicated; Z79.899 Other long term (current) drug therapy

== ENCOUNTER → 2018-04-11 | Outpatient (CLI) | payer MEDICARE ==
[~2018-04-11] MED LIST changes: +BUPIVACAINE HCL 0.25% 10 ML VIAL As Ordered ONE; +BUPIVACAINE HCL 0.25% 30 ML VIAL As Ordered ONE; +TRIAMCINOLONE ACETONIDE SUSP 40 MG/ML VIAL (J3301) As Ordered ONE
--- NOTE | 2018-04-25 00:12 | ECWPNPC ---
PATIENT NAME: KRISTINE BAEZ : 1955 GENDER: MALE VISIT DATE: 04/11/2018 DISCHARGE DATE: 04/11/18 1110 VISIT LOCKED DATE TIME: PHYSICIAN: ROLANDA NAPOLES MD RESOURCE: ROLANDA NAPOLES MD REASON FOR APPOINTMENT 1. TPI HISTORY OF PRESENT ILLNESS HISTORY OF PRESENT ILLNESS: PAIN THE PATIENT DESCRIBES THE PAIN... FALL RISK SCREENING: SCREENING :NO FALLS IN THE PAST YEAR CURRENT MEDICATIONS TAKING SERTRALINE HCL 50 MG TABLET 1 TABLET ORALLY ONCE A DAY, NOTES: 04/11/18 AM TAKING LISINOPRIL 10 MG TABLET 1 TABLET ORALLY ONCE A DAY, NOTES: 04/11/18 AM TAKING PANTOPRAZOLE SODIUM 40 MG TABLET DELAYED RELEASE 1 TABLET ORALLY ONCE A DAY, NOTES: 04/11/18 TAKING ZOFRAN 4 MG TABLET 2 TABLETS ORALLY QID PRN, NOTES: 04/11/18 AM TAKING SYSTANE 0.4-0.3 % SOLUTION 2 DROPS BOTH EYES OPHTHALMIC 2X/DAY, NOTES: 04/11/18 AM TAKING TIZANIDINE HCL 4 MG TABLET 2 ORALLY AM AND PM PRN, NOTES: 04/10/18 TAKING CELEBREX 200 MG CAPSULE 1 CAPSULE WITH FOOD ORALLY BID, NOTES: 04/11/18 AM TAKING ALBUTEROL SULFATE 108 (90 BASE) MCG/ACT AEROSOL POWDER BREATH ACTIVATED 2 PUFFS NEEDED INHALATION EVERY 6 HRS, NOTES: NONE LATELY NOT-TAKING FISH OIL 1000 MG CAPSULE 1 CAPSULE ORALLY ONCE A DAY MEDICATION LIST REVIEWED AND RECONCILED WITH THE PATIENT PAST MEDICAL HISTORY HYPERTENSION PNEUMONIA FIBROSIS OF LUNGS CHRONIC BACK PAIN PAIN LEFT HIP PAIN RIGHT KNEE DRY EYES RIGHT HIP PAIN BELLS PALSY ALLERGIES N.K.D.A. SURGICAL HISTORY REMOVAL LYMPH NODES FROM UNDER LEFT LUNG 20 YRS AGO TRIGGER FINGER RELEASE RIGHT HAND 2016 REMOVAL SCAR TISSUE RIGHT HAND 10/2015 REMOVAL OF CYST RIGHT HAND 10/2016 FAMILY HISTORY FATHER: , DIAGNOSED WITH OTHER MOTHER: 1 SON(S) , 1 DAUGHTER(S) - HEALTHY. DAD- BRAIN ANEURYSMMOM-PARITINITIS. SOCIAL HISTORY GENERAL: TOBACCO USE ARE YOU A:CURRENT SMOKER ARE YOU INTERESTED IN QUITTING?NOT READY TO QUIT HAS TRIED CHANTIX BUT IT MADE HIM VOMIT, STATES QUITTING NEVER WORKS. COUNSELED THE PATIENT ON SMOKING EFFECTS, EDUCATION [id number]/21/2019 HOW MANY CIGARETTES A DAY DO YOU SMOKE?21-30 HOW SOON AFTER YOU WAKE UP DO YOU SMOKE YOUR FIRST CIGARETTE?WITHIN 5 MIN HOW OFTEN DO YOU SMOKE CIGARETTES?EVERY DAY PATIENT COUNSELED ON THE DANGERS OF TOBACCO USE AND URGED TO QUIT:04/11/2018 SMOKING CESSATION INFORMATION GIVEN12/27/2017 01/10/18 PT DECLLINED ALCOHOL SCREENING DID YOU HAVE A DRINK CONTAINING ALCOHOL IN THE PAST YEAR?NO POINTS0 INTERPRETATIONNEGATIVE RECREATIONAL DRUG USE DRUG USE?NO CAFFEINE CAFFEINE USE?YES HOW OFTEN AND HOW MUCH? 6 CUPS PER DAY CONFUCIANISM [id number] [place]HA[place] LANGUAGE LANGUAGES SPOKEN:CHILEAN EDUCATION LEVEL OF EDUCATION: GED LEARNING BARRIERS / SPECIAL NEEDS CHANGE FROM LAST VISIT?NO BARRIERS TO LEARNING?NO HEARING IMPAIRED?NO VISION IMPAIRED?YES COGNITIVELY IMPAIRED?NO :CORRECTIVE LENSES READINESS TO LEARN?YES LEARNING PREFERENCES?YES :TAPES/VIDEOS LEARNING CAPABILITIES PRESENT?YES EMOTIONAL BARRIERS?NO SPECIAL DEVICES?YES :CANE WASHER HAND NEEDED?NO DOMESTIC VIOLENCE DO YOU FEEL SAFE IN YOUR ENVIRONMENT?YES PAIN CLINIC PFS, CLERGY, PUBLIC HEALTH REFERRALS PFS REFERRAL NEEDED?NO CLERGY REFERRAL NEEDED?NO PUBLIC HEALTH REFERRAL NEEDED?NO WAS THE PROVIDER NOTIFIED OF ANY PERTINENT INFO? N/A HAS THE PATIENT BEEN EDUCATED REGARDING HIS/HER PLAN OF CARE?YES HAS THE PATIENT BEEN EDUCATED REGARDING PAIN, THE RISK FOR PAIN, THE IMPORTANCE OF EFFECTIVE PAIN MANAGEMENT, AND THE PAIN ASSESSMENT PROCESS?YES ADVANCE DIRECTIVE ADVANCE DIRECTIVE DISCUSSED WITH PATIENT:YES HCP - JEREMY COX (GIRLFRIEND) 10/06/17 1635 REVIEWED WITH PTPeewee OROZCO WITH PATIENT 12/27/17 1031 JS01/10/18 1022 REVIEWED WITH PT. OROZCO WITH PATIENT 01/26/18 0907 JSREVIEWED WITH PATIENT 03/29/18 0915 LAS. HOSPITALIZATION/MAJOR DIAGNOSTIC PROCEDURE POST MVI >30 YRS AGO REVIEW OF SYSTEMS REVIEWED BY: PROVIDER: . CONSTITUTIONAL: ANY CHANGE IN YOUR MEDICAL CONDITION? NO . CHILLS NO . FEVER NO . INFECTION: DO YOU HAVE NEW INFECTIONS? NO . DO YOU HAVE HISTORY OF MRSA? NO . MUSCULOSKELETAL: ANY NEW PATTERNS OF PAIN OR NUMBNESS? YES, LEFT LEG PAIN X MONTHS INTERMITTENT . GASTROENTEROLOGY: ANY NEW CHANGE IN BOWEL CONTROL? NO . GENITOURINARY: ANY NEW CHANGE IN BLADDER CONTROL? NO . IS THERE A CHANCE YOU COULD BE ? NO . HEMATOLOGY/LYMPH: DO YOU TAKE ANY BLOOD THINNERS? (FOR EXAMPLE- COUMADIN, PLAVIX, AGGRENOX, PLATEL, PRADAXA, OR XARELTO) NO . WHEN WAS YOUR LAST DOSE? DATE: TIME: . NEUROLOGY: HAVE YOU FALLEN IN THE PAST 12 MONTHS? YES, FELL 3 DAYS AGO FROM WEAKNESS, PT DENIES INJURIES . ANY NEW EXTREMITY NUMBNESS OR WEAKNESS? YES, LEFT LEG . CARDIOLOGY: DO YOU HAVE A PACEMAKER OR DEFIBRILLATOR? NO . RESPIRATORY: HAVE YOU BEEN SICK IN THE PAST WEEK? YES, SMOKERS COUGH . FEVER NO . FLU LIKE SYMPTOMS? NO . COUGH NO . INTEGUMENTARY: DO YOU HAVE ANY RASHES OR OPEN SORES? NO . ALLERGIC/IMMUNO: ARE YOU ALLERGIC TO IV DYE? NO . ANY NEW ALLERGIES? NO . PSYCHIATRIC: DO YOU HAVE THOUGHTS OF HURTING YOURSELF OR SOMEONE ELSE? NO . ARE YOU ABUSED, NEGLECTED, OR IN AN UNSAFE ENVIRONMENT? NO . ENDOCRINOLOGY: ARE YOU DIABETIC? NO . OTHER: DO YOU NEED ANY PRESCRIPTIONS? NO . IF YES, PLEASE LIST: ____ . ANY NEW PROBLEMS WITH YOUR MEDICATIONS? NO . WHEN DID YOU LAST EAT? 04/10/18 1630 . WHEN DID YOU LAST DRINK? 04/11/18 0500 . WHAT DID YOU LAST DRINK? WATER . NAME OF PERSON DRIVING YOU HOME? JEREMY . DO YOU HAVE ANY OTHER QUESTIONS OR CONCERNS NO . VITAL SIGNS WT 181.2 LBS, HT 67 IN, BMI 28.38 INDEX, BP 132/75 MM HG, HR 89 /MIN, RR 16 /MIN, TEMP 98.5 F, OXYGEN SAT % 94%, NA INITIALS AW 1031, REVIEWED BY: EM. ASSESSMENTS MYALGIA, OTHER SITE - M79.18 (PRIMARY) PROCEDURES PN TRIGGER POINT INJECTION WITH STEROIDS PRE PROCEDURE DIAGNOSIS 1. MYALGIA 2. PAIN AT BILATERAL LOW BACK AREA POST PROCEDURE DIAGNOSIS 1. MYALGIA 2. PAIN AT BILATERAL LOW BACK AREA PROCEDURE TRIGGER POINT INJECTION AT BILATERAL LOW BACK AREA SURGEON DR. ROLANDA NAPOLES DISTRICT RESOURCE OFFICER NONE ANESTHESIA LOCAL PRE PROCEDURE NOTE THE PATIENT HAS A HISTORY OF CHRONIC PAIN AT THE RIGHT AND LEFT LOW BACK AREA. I EVALUATE THE PATIENT AND REVIEWED THE CHART. THERE IS EVIDENCE OF BANDS OF TISSUE WITH RESTRICTION OF MOVEMENT AND PRESENCE OF TRIGGER POINT AT THE AFFECTED AREA. I WENT OVER THE RISKS, ALTERNATIVES, AND BENEFITS ASSOCIATED WITH THIS PROCEDURE. THE PATIENT WOULD LIKE TO PROCEED AND GIVE CONSENT TO PERFORMED THE PROCEDURE. THE PATIENT DENIES UNEXPLAINABLE WEIGHT LOSS, FEVER, CHILLS, OR NEW CHANGES IN URINARY OR BOWEL CONTROL DESCRIPTION OF PROCEDURE THE PATIENT WAS BROUGHT TO THE PROCEDURE ROOM AND PLACED IN THE SITTING POSITION. THE AREA WAS CLEANED WITH ALCOHOL. THE PROCEDURE WAS DONE USING ASEPTIC STERILE TECHNIQUE. I CHECKED LATERALITY AND THE LEVEL WHERE THE PROCEDURE WAS GOING TO BE PERFORMED WITH THE PATIENT AND THE SUPPORTING STAFF AT THE MOMENT OF THE TIME OUT IN THE PROCEDURE ROOM. USING A 25-GAUGE NEEDLE, TRIGGER POINTS WERE INJECTED AT THE RIGHT AND LEFT LOW BACK AREA WITH A TOTAL OF 40 ML OF BUPIVACAINE 0.25% AND KENALOG 40 MG. THERE WAS NO EVIDENCE OF BLOOD, PARESTHESIA OR CEREBROSPINAL FLUID DURING THE PROCEDURE. THE PATIENT WAS SENT TO THE RECOVERY ROOM. THE PATIENT WAS MOVING THE EXTREMITIES AND DOING WELL. THERE WAS NO COMPLICATION DURING THE PROCEDURE POST PROCEDURE NOTE THE PATIENT WILL BE SEEN IN A FOLLOW UP IN THE NEXT FEW WEEKS. INSTRUCTIONS WERE GIVEN, QUESTIONS WERE ANSWERED, AND THE PATIENT EXPRESSED UNDERSTANDING AND AGREES WITH THE PLAN. I, MOISES TSE, DOCUMENTED THE ABOVE INFORMATION ACTING A SCRIBE FOR DR. NAPOLES. I HAVE REVIEWED THE ABOVE DOCUMENT, WRITTEN BY MOISES TSE SCRIBTeto AND I VERIFY THAT IT IS ACCURATE. PROCEDURE CODES 86043 INJ TRIGGER POINT / MUSC DISPOSITION & COMMUNICATION FOLLOW UP 3 WEEKS ELECTRONICALLY SIGNED BY ROLANDA NAPOLES MD, MD ON 04/24/2018 AT 06:11 PM EST DISCLAIMER : THIS IS A VISIT SUMMARY EXTRACTED FROM THE [employer]. IT IS NOT A COPY OF THE [email or web address] [place] PROGRESS NOTE. LEONILA
== END ==
LOC: M PAIN 10:15
PROVIDERS: ATTEND Anesthesiology
DX: M79.18 Myalgia, other site (principal); M54.5 Low back pain; I10 Essential (primary) hypertension; F17.210 Nicotine dependence, cigarettes, uncomplicated; Z79.899 Other long term (current) drug therapy
CPT/HCPCS: 20552; J3301

== ENCOUNTER 2018-04-13 10:06 | Outpatient (RCR) | payer MEDICARE ==
[~2018-04-13 10:06] MED LIST changes: -BUPIVACAINE HCL 0.25% 10 ML VIAL As Ordered ONE; -BUPIVACAINE HCL 0.25% 30 ML VIAL As Ordered ONE; -TRIAMCINOLONE ACETONIDE SUSP 40 MG/ML VIAL (J3301) As Ordered ONE
== END 2018-04-21 ==
LOC: M PT 10:06
PROVIDERS: ATTEND Nurse Practitioner Family
DX: Z51.89 Encounter for other specified aftercare (principal); M79.18 Myalgia, other site

== ENCOUNTER → 2018-05-03 | Outpatient (CLI) | payer MEDICARE ==
--- NOTE | 2018-05-19 00:53 | ECWPNPC ---
PATIENT NAME: KRISTINE BAEZ : 1955 GENDER: MALE VISIT DATE: 05/03/2018 DISCHARGE DATE: 05/03/18 1053 VISIT LOCKED DATE TIME: PHYSICIAN: YAMILE HUNT RESOURCE: YAMILE HUNT REASON FOR APPOINTMENT 1. POST PROC HISTORY OF PRESENT ILLNESS HISTORY OF PRESENT ILLNESS: HERE FOR POST PROCEDURE F/U.HAD TPI LOW BACK ON 04-11-17.REPORTING SOME IMPROVEMENT FOR A SHORT PERIOD OF TIME.RATING PAIN VAS 8/10.PAIN IS DESCRIBED CONTINUOUS AND SORE. PAIN THE PATIENT DESCRIBES THE PAIN... THE PATIENT DESCRIBES THE PAIN... THE PATIENT DESCRIBES THE PAIN... THE PATIENT DESCRIBES THE PAIN... FALL RISK SCREENING: SCREENING :NO FALLS IN THE PAST YEAR CURRENT MEDICATIONS TAKING SERTRALINE HCL 50 MG TABLET 1 TABLET ORALLY ONCE A DAY TAKING LISINOPRIL 10 MG TABLET 1 TABLET ORALLY ONCE A DAY TAKING PANTOPRAZOLE SODIUM 40 MG TABLET DELAYED RELEASE 1 TABLET ORALLY ONCE A DAY TAKING ZOFRAN 4 MG TABLET 2 TABLETS ORALLY QID PRN TAKING SYSTANE 0.4-0.3 % SOLUTION 2 DROPS BOTH EYES OPHTHALMIC 2X/DAY TAKING TIZANIDINE HCL 4 MG TABLET 2 ORALLY AM AND PM PRN TAKING CELEBREX 200 MG CAPSULE 1 CAPSULE WITH FOOD ORALLY BID TAKING ALBUTEROL SULFATE 108 (90 BASE) MCG/ACT AEROSOL POWDER BREATH ACTIVATED 2 PUFFS NEEDED INHALATION EVERY 6 HRS TAKING TRAMADOL HCL 50 MG TABLET 1 TABLET NEEDED ORALLY EVERY 8 HRS NOT-TAKING FISH OIL 1000 MG CAPSULE 1 CAPSULE ORALLY ONCE A DAY MEDICATION LIST REVIEWED AND RECONCILED WITH THE PATIENT PAST MEDICAL HISTORY HYPERTENSION PNEUMONIA FIBROSIS OF LUNGS CHRONIC BACK PAIN PAIN LEFT HIP PAIN RIGHT KNEE DRY EYES RIGHT HIP PAIN BELLS PALSY ALLERGIES N.K.D.A. SURGICAL HISTORY REMOVAL LYMPH NODES FROM UNDER LEFT LUNG 20 YRS AGO TRIGGER FINGER RELEASE RIGHT HAND 2016 REMOVAL SCAR TISSUE RIGHT HAND 10/2015 REMOVAL OF CYST RIGHT HAND 10/2016 FAMILY HISTORY FATHER: , DIAGNOSED WITH OTHER MOTHER: 1 SON(S) , 1 DAUGHTER(S) - HEALTHY. DAD- BRAIN ANEURYSMMOM-PARITINITIS. SOCIAL HISTORY GENERAL: TOBACCO USE ARE YOU A:CURRENT SMOKER ARE YOU INTERESTED IN QUITTING?NOT READY TO QUIT HAS TRIED CHANTIX BUT IT MADE HIM VOMIT, STATES QUITTING NEVER WORKS. COUNSELED THE PATIENT ON SMOKING EFFECTS, EDUCATION [id number]/12/2019 HOW MANY CIGARETTES A DAY DO YOU SMOKE?21-30 HOW SOON AFTER YOU WAKE UP DO YOU SMOKE YOUR FIRST CIGARETTE?WITHIN 5 MIN HOW OFTEN DO YOU SMOKE CIGARETTES?EVERY DAY PATIENT COUNSELED ON THE DANGERS OF TOBACCO USE AND URGED TO QUIT:05/03/2018 SMOKING CESSATION INFORMATION GIVEN12/27/2017 01/10/18 PT DECLLINED ALCOHOL SCREENING DID YOU HAVE A DRINK CONTAINING ALCOHOL IN THE PAST YEAR?NO POINTS0 INTERPRETATIONNEGATIVE RECREATIONAL DRUG USE DRUG USE?NO CAFFEINE CAFFEINE USE?YES HOW OFTEN AND HOW MUCH? 6 CUPS PER DAY RASTAFARIAN [id number] ORTHODOXY LANGUAGE LANGUAGES SPOKEN:ARMENIAN EDUCATION LEVEL OF EDUCATION: GED LEARNING BARRIERS / SPECIAL NEEDS CHANGE FROM LAST VISIT?NO BARRIERS TO LEARNING?NO HEARING IMPAIRED?NO VISION IMPAIRED?YES COGNITIVELY IMPAIRED?NO :CORRECTIVE LENSES READINESS TO LEARN?YES LEARNING PREFERENCES?YES :TAPES/VIDEOS LEARNING CAPABILITIES PRESENT?YES EMOTIONAL BARRIERS?NO SPECIAL DEVICES?YES :CANE HOGSHEAD DUMPER NEEDED?NO DOMESTIC VIOLENCE DO YOU FEEL SAFE IN YOUR ENVIRONMENT?YES PAIN CLINIC PFS, CLERGY, PUBLIC HEALTH REFERRALS PFS REFERRAL NEEDED?NO CLERGY REFERRAL NEEDED?NO PUBLIC HEALTH REFERRAL NEEDED?NO WAS THE PROVIDER NOTIFIED OF ANY PERTINENT INFO? N/A HAS THE PATIENT BEEN EDUCATED REGARDING HIS/HER PLAN OF CARE?YES HAS THE PATIENT BEEN EDUCATED REGARDING PAIN, THE RISK FOR PAIN, THE IMPORTANCE OF EFFECTIVE PAIN MANAGEMENT, AND THE PAIN ASSESSMENT PROCESS?YES ADVANCE DIRECTIVE ADVANCE DIRECTIVE DISCUSSED WITH PATIENT:YES HCP - JEREMY COX (GIRLFRIEND) 10/06/17 1635 REVIEWED WITH PT. OROZCO WITH PATIENT 12/27/17 1031 JS01/10/18 1022 REVIEWED WITH PT. OROZCO WITH PATIENT 01/26/18 0907 JSREVIEWED WITH PATIENT 03/29/18 0915 LAS. HOSPITALIZATION/MAJOR DIAGNOSTIC PROCEDURE POST MVI >30 YRS AGO REVIEW OF SYSTEMS REVIEWED BY: PROVIDER: YAMILE CASAS . CONSTITUTIONAL: ANY CHANGE IN YOUR MEDICAL CONDITION? NO . CHILLS NO . FEVER NO . INFECTION: DO YOU HAVE NEW INFECTIONS? NO . DO YOU HAVE HISTORY OF MRSA? NO . MUSCULOSKELETAL: ANY NEW PATTERNS OF PAIN OR NUMBNESS? NO . GASTROENTEROLOGY: ANY NEW CHANGE IN BOWEL CONTROL? NO . GENITOURINARY: ANY NEW CHANGE IN BLADDER CONTROL? NO . IS THERE A CHANCE YOU COULD BE ? NO . HEMATOLOGY/LYMPH: DO YOU TAKE ANY BLOOD THINNERS? (FOR EXAMPLE- COUMADIN, PLAVIX, AGGRENOX, PLATEL, PRADAXA, OR XARELTO) NO . WHEN WAS YOUR LAST DOSE? DATE: TIME: . NEUROLOGY: HAVE YOU FALLEN IN THE PAST 12 MONTHS? YES, FELL 2 DAYS AGO SLIPPED ON ICE, DENIES SEEKING MEDICAL [place] . ANY NEW EXTREMITY NUMBNESS OR WEAKNESS? NO . CARDIOLOGY: DO YOU HAVE A PACEMAKER OR DEFIBRILLATOR? NO . RESPIRATORY: HAVE YOU BEEN SICK IN THE PAST WEEK? NO . FEVER NO . FLU LIKE SYMPTOMS? NO . COUGH NO . INTEGUMENTARY: DO YOU HAVE ANY RASHES OR OPEN SORES? NO . ALLERGIC/IMMUNO: ARE YOU ALLERGIC TO IV DYE? NO . ANY NEW ALLERGIES? NO . PSYCHIATRIC: DO YOU HAVE THOUGHTS OF HURTING YOURSELF OR SOMEONE ELSE? NO . ARE YOU ABUSED, NEGLECTED, OR IN AN UNSAFE ENVIRONMENT? NO . ENDOCRINOLOGY: ARE YOU DIABETIC? NO . OTHER: DO YOU NEED ANY PRESCRIPTIONS? NO . IF YES, PLEASE LIST: ____ . ANY NEW PROBLEMS WITH YOUR MEDICATIONS? NO . WHEN DID YOU LAST EAT? ____ . WHEN DID YOU LAST DRINK? ____ . WHAT DID YOU LAST DRINK? ____ . NAME OF PERSON DRIVING YOU HOME? ____ . DO YOU HAVE ANY OTHER QUESTIONS OR CONCERNS NO . VITAL SIGNS WT 180.8 LBS, HT 67 IN, BMI 28.31 INDEX, BP 160/83 MM HG, HR 71 /MIN, RR 18 /MIN, TEMP 97.8 F, OXYGEN SAT % 93%, NA INITIALS SC 10:19, REVIEWED BY: EM. EXAMINATION GENERAL EXAMINATION: GENERAL APPEARANCE:AWAKE,ALERT ,PLEAASANT . PSYCHAFFECT NORMAL . LUNGS:LUNG MENA ARE CLEAR TO AUSCULTATION BILATERALLY. GOOD MOVEMENT OF AIR . HEART:S1, S2 IN A REGULAR RATE AND RHYTHM. NO SIGNIFICANT MURMURS, RUBS OR GALLOPS NOTED . 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 IT IS NOT A COPY OF THE [employer] PROGRESS NOTE. MTDD
== END ==
LOC: M PAIN 10:15
PROVIDERS: ATTEND Nurse Practitioner Family
DX: M79.18 Myalgia, other site (principal); M46.1 Sacroiliitis, not elsewhere classified; M51.14 Intervertebral disc disorders with radiculopathy, thoracic region; I10 Essential (primary) hypertension; F17.210 Nicotine dependence, cigarettes, uncomplicated; Z79.899 Other long term (current) drug therapy

== ENCOUNTER 2018-05-17 09:01 | Outpatient (RCR) | payer MEDICARE | END 2018-05-19 | LOC: M PT 09:01 | PROVIDERS: ATTEND Nurse Practitioner Family | DX: Z51.89 Encounter for other specified aftercare (principal); M79.18 Myalgia, other site ==

== ENCOUNTER → 2018-08-01 | Outpatient (CLI) | payer MEDICARE ==
[~2018-08-01] MED LIST changes: +SERT-141 PO; -SERT50TA PO
== END ==
LOC: M PAIN 09:15
PROVIDERS: ATTEND Nurse Practitioner Family
DX: M79.18 Myalgia, other site (principal); M46.1 Sacroiliitis, not elsewhere classified; M51.14 Intervertebral disc disorders with radiculopathy, thoracic region; I10 Essential (primary) hypertension; F17.210 Nicotine dependence, cigarettes, uncomplicated; Z79.899 Other long term (current) drug therapy

== ENCOUNTER → 2018-09-06 | Outpatient (CLI) | payer MEDICARE ==
[~2018-09-06] MED LIST changes: +BUPIVACAINE HCL 0.25% 30 ML VIAL As Ordered ONE; +ISOVUE-M 300 61% 15ML VIAL (Q9967) As Ordered ONE; +LIDOCAINE 1% SDV INJ 30 ML VIAL As Ordered ONE; +TRIAMCINOLONE ACETONIDE SUSP 40 MG/ML VIAL (J3301) As Ordered ONE
--- NOTE | 2018-09-06 14:10 | REP ---
SI JOINT SERIES: Bilateral four views. HISTORY: Bilateral SI joint injection for pain. 8 seconds of fluoroscopy time is reported. FINDINGS: A sequence of four last image hold fluoroscopically obtained spot radiographs of the SI joints document needle position and contrast injection associated with bilateral SI joint injection. Electronically Signed by Darrion Cunha MD 09/06/2018 04:07 P
--- NOTE | 2018-09-19 00:39 | ECWPNPC ---
PATIENT NAME: KRISTINE BAEZ : 1955 GENDER: MALE VISIT DATE: 09/06/2018 DISCHARGE DATE: 09/06/18 1249 VISIT LOCKED DATE TIME: PHYSICIAN: ROLANDA NAPOLES MD RESOURCE: ROLANDA NAPOLES MD REASON FOR APPOINTMENT 1. BILAT. SIJ HISTORY OF PRESENT ILLNESS HISTORY OF PRESENT ILLNESS: PAIN THE PATIENT DESCRIBES THE PAIN... FALL RISK SCREENING: SCREENING :NO FALLS REPORTED IN THE LAST YEAR CURRENT MEDICATIONS TAKING SERTRALINE HCL 50 MG TABLET 1 TABLET ORALLY ONCE A DAY, NOTES: 09/06 799 TAKING LISINOPRIL 10 MG TABLET 1 TABLET ORALLY ONCE A DAY, NOTES: 09/06 799 TAKING PANTOPRAZOLE SODIUM 40 MG TABLET DELAYED RELEASE 1 TABLET ORALLY ONCE A DAY, NOTES: 09/06 799 TAKING ZOFRAN 4 MG TABLET 2 TABLETS ORALLY QID PRN, NOTES: NONE RECENT TAKING SYSTANE 0.4-0.3 % SOLUTION 2 DROPS BOTH EYES OPHTHALMIC 2X/DAY, NOTES: NONE RECENT TAKING TIZANIDINE HCL 4 MG TABLET 2 ORALLY AM AND PM PRN, NOTES: 08/06 799 TAKING TRAMADOL HCL 50 MG TABLET 1 TABLET NEEDED ORALLY EVERY 8 HRS, NOTES: 08/06 799 TAKING MAY USE - - ANTIBIOTIC OPTHALMIC EYE GEL IN BOTH EYES BEFORE BEDTIME NOT-TAKING ALBUTEROL SULFATE 108 (90 BASE) MCG/ACT AEROSOL POWDER BREATH ACTIVATED 2 PUFFS NEEDED INHALATION EVERY 6 HRS NOT-TAKING CELEBREX 200 MG CAPSULE 1 CAPSULE WITH FOOD ORALLY BID NOT-TAKING FISH OIL 1000 MG CAPSULE 1 CAPSULE ORALLY ONCE A DAY MEDICATION LIST REVIEWED AND RECONCILED WITH THE PATIENT PAST MEDICAL HISTORY HYPERTENSION PNEUMONIA FIBROSIS OF LUNGS CHRONIC BACK PAIN PAIN LEFT HIP PAIN RIGHT KNEE WITH WEAKNESS DRY EYES RIGHT HIP PAIN BELLS PALSY ALLERGIES N.K.D.A. SURGICAL HISTORY REMOVAL LYMPH NODES FROM UNDER LEFT ARM 20 YRS AGO TRIGGER FINGER RELEASE RIGHT HAND 2015 REMOVAL SCAR TISSUE RIGHT HAND 10/2015 REMOVAL OF CYST RIGHT HAND 10/2016 FAMILY HISTORY FATHER: , DIAGNOSED WITH OTHER MOTHER: 1 SON(S) , 1 DAUGHTER(S) - HEALTHY. DAD- BRAIN ANEURYSMMOM-PARITINITIS. SOCIAL HISTORY GENERAL: TOBACCO USE ARE YOU A:CURRENT SMOKER ARE YOU INTERESTED IN QUITTING?NOT READY TO QUIT HAS TRIED CHANTIX BUT IT MADE HIM VOMIT, STATES QUITTING NEVER WORKS. COUNSELED THE PATIENT ON SMOKING EFFECTS, EDUCATION [id number]/18/2019 HOW MANY CIGARETTES A DAY DO YOU SMOKE?21-30 HOW SOON AFTER YOU WAKE UP DO YOU SMOKE YOUR FIRST CIGARETTE?WITHIN 5 MIN HOW OFTEN DO YOU SMOKE CIGARETTES?EVERY DAY PATIENT COUNSELED ON THE DANGERS OF TOBACCO USE AND URGED TO QUIT:09/06/2018 SMOKING CESSATION INFORMATION GIVEN 08/27/18 PT DECLINED INFORMATION AT THIS TIME AD PAIN CLINIC PFS, CLERGY, PUBLIC HEALTH REFERRALS PFS REFERRAL NEEDED?NO CLERGY REFERRAL NEEDED?NO PUBLIC HEALTH REFERRAL NEEDED?NO WAS THE PROVIDER NOTIFIED OF ANY PERTINENT INFO? N/A HAS THE PATIENT BEEN EDUCATED REGARDING HIS/HER PLAN OF CARE?YES HAS THE PATIENT BEEN EDUCATED REGARDING PAIN, THE RISK FOR PAIN, THE IMPORTANCE OF EFFECTIVE PAIN MANAGEMENT, AND THE PAIN ASSESSMENT PROCESS?YES LATEX QUESTIONNAIRE LATEX ALLERGY : HAVE YOU EVER DEVELOPED ANY TYPE OF REACTION AFTER HANDLING LATEX PRODUCTS SUCH RUBBER GLOVES, CONDOMS, DIAPHRAGMS, BALLOONS, SOCKS, OR UNDERWEAR?NO LATEX ALLERGY : HAVE YOU EVER DEVELOPED ANY TYPE OF REACTION DURING OR AFTER DENTAL APPOINTMENT, VAGINAL/RECTAL EXAMINATION, SURGICAL PROCEDURE, OR ANY OTHER EXPOSURE?NO LATEX RISK : HAVE YOU EVER HAD ANY DIFFICULTY BREATHING OR HIVES AFTER EATING OR HANDLING ANY FRUITS, OR VEGETABLES; SUCH KIWI, BANANAS, STONE FRUITS, OR CHESTNUTSNO LATEX RISK : DO YOU HAVE A PREVIOUS PERSONAL HISTORY OF MORE THAN NINE SURGERIES, SPINA BIFIDA, OR REPEATED CATHERTIZATIONS? NO LATEX RISK : ARE YOU FREQUENTLY EXPOSED TO LATEX PRODUCTS IN YOUR OCCUPATION?YES DATE ASKED : 09/06/2018 CAFFEINE CAFFEINE USE?YES HOW OFTEN AND HOW MUCH? 6 CUPS PER DAY ADVANCE DIRECTIVE ADVANCE DIRECTIVE DISCUSSED WITH PATIENT:YES HCP - JEREMY COX (GIRLFRIEND) [phone] EDUCATION LEVEL OF EDUCATION: GED HINDU [id number] MOSQUE LANGUAGE LANGUAGES SPOKEN:MONGOLIAN DOMESTIC VIOLENCE DO YOU FEEL SAFE IN YOUR ENVIRONMENT?YES ALCOHOL SCREENING DID YOU HAVE A DRINK CONTAINING ALCOHOL IN THE PAST YEAR?NO POINTS0 INTERPRETATIONNEGATIVE RECREATIONAL DRUG USE DRUG USE?NO LEARNING BARRIERS / SPECIAL NEEDS CHANGE FROM LAST VISIT?NO BARRIERS TO LEARNING?NO HEARING IMPAIRED?NO VISION IMPAIRED?YES :CORRECTIVE LENSES COGNITIVELY IMPAIRED?NO READINESS TO LEARN?YES LEARNING PREFERENCES?YES :TAPES/VIDEOS LEARNING CAPABILITIES PRESENT?YES EMOTIONAL BARRIERS?NO SPECIAL DEVICES?YES :CANE, BRACE BRACE LEFT KNEE LABORER LIVESTOCK NEEDED?NO 10/06/17 1635 REVIEWED WITH PT. OROZCO WITH PATIENT 12/27/17 1031 JS01/10/18 1022 REVIEWED WITH PT. OROZCO WITH PATIENT 01/26/18 0907 JSREVIEWED WITH PATIENT 03/29/18 0915 LAS. HOSPITALIZATION/MAJOR DIAGNOSTIC PROCEDURE POST MVI >30 YRS AGO REVIEW OF SYSTEMS REVIEWED BY: PROVIDER: . CONSTITUTIONAL: ANY CHANGE IN YOUR MEDICAL CONDITION? NO . CHILLS NO . FEVER NO . INFECTION: DO YOU HAVE NEW INFECTIONS? NO . DO YOU HAVE HISTORY OF MRSA? NO . MUSCULOSKELETAL: ANY NEW PATTERNS OF PAIN OR NUMBNESS? NO . GASTROENTEROLOGY: ANY NEW CHANGE IN BOWEL CONTROL? NO . GENITOURINARY: ANY NEW CHANGE IN BLADDER CONTROL? NO . IS THERE A CHANCE YOU COULD BE ? NO . HEMATOLOGY/LYMPH: DO YOU TAKE ANY BLOOD THINNERS? (FOR EXAMPLE- COUMADIN, PLAVIX, AGGRENOX, PLATEL, PRADAXA, OR XARELTO) NO . WHEN WAS YOUR LAST DOSE? DATE: TIME: . NEUROLOGY: HAVE YOU FALLEN IN THE PAST 12 MONTHS? YES, STATES APPROX 7 TIMES. HIS LEFT KNEE GAVE OUT ON HIM. NO MAJOR INJURY . ANY NEW EXTREMITY NUMBNESS OR WEAKNESS? YES, WEAKNESS LEFT LEG HAS INCREASED . CARDIOLOGY: DO YOU HAVE A PACEMAKER OR DEFIBRILLATOR? NO . RESPIRATORY: HAVE YOU BEEN SICK IN THE PAST WEEK? NO . FEVER NO . FLU LIKE SYMPTOMS? NO . COUGH YES, "SMOKER'S COUGH" . INTEGUMENTARY: DO YOU HAVE ANY RASHES OR OPEN SORES? NO . ALLERGIC/IMMUNO: ARE YOU ALLERGIC TO IV DYE? NO . ANY NEW ALLERGIES? NO . PSYCHIATRIC: DO YOU HAVE THOUGHTS OF HURTING YOURSELF OR SOMEONE ELSE? NO . ARE YOU ABUSED, NEGLECTED, OR IN AN UNSAFE ENVIRONMENT? NO . ENDOCRINOLOGY: ARE YOU DIABETIC? NO . OTHER: DO YOU NEED ANY PRESCRIPTIONS? NO . IF YES, PLEASE LIST: ____ . ANY NEW PROBLEMS WITH YOUR MEDICATIONS? NO . WHEN DID YOU LAST EAT? 09/05/18 1900 . WHEN DID YOU LAST DRINK? 09/05/18 2300 . WHAT DID YOU LAST DRINK? COFFEE . NAME OF PERSON DRIVING YOU HOME? JEREMY . DO YOU HAVE ANY OTHER QUESTIONS OR CONCERNS NO . VITAL SIGNS WT 173.2 LBS, HT 67 IN, BMI 27.12 INDEX, BP 139/81 MM HG, HR 62 /MIN, RR 18 /MIN, TEMP 97.2 F, OXYGEN SAT % 92%, SAFE IN ENV? (Y/N) Y, NA INITIALS MI 11:23, REVIEWED BY: BLAKE. ASSESSMENTS SACROILIITIS, NOT ELSEWHERE CLASSIFIED - M46.1 (PRIMARY) TREATMENT SACROILIITIS, NOT ELSEWHERE CLASSIFIED [facility] FLUORO GUIDANCE (PAIN)[id number] PROCEDURES PN SI PRE PROCEDURE DIAGNOSIS SACROILIITIS, SACROILIAC JOINT DYSFUNCTION POST PROCEDURE DIAGNOSIS SACROILIITIS, SACROILIAC JOINT DYSFUNCTION PROCEDURE BILATERAL SACROILIAC JOINT BLOCK. SURGEON DR. ROLANDA NAPOLES CRISIS MENTAL HEALTH THERAPIST NONE ANESTHESIA LOCAL PRE PROCEDURE NOTE PATIENT WITH HISTORY OF CHRONIC LOW BACK PAIN. I EVALUATED THE PATIENT AND REVIEWED THE CHART. I WENT OVER THE RISKS, ALTERNATIVES, AND BENEFITS ASSOCIATED WITH THIS PROCEDURE. THE PATIENT WOULD LIKE TO PROCEED AND GAVE CONSENT TO PERFORM THE PROCEDURE. THE PATIENT DENIES UNEXPLAINABLE WEIGHT LOSS, FEVER, CHILLS, OR NEW CHANGES IN URINARY OR BOWEL CONTROL DESCRIPTION OF PROCEDURE THE PATIENT WAS BROUGHT TO THE PROCEDURE ROOM AND PLACED IN THE PRONE POSITION. THE LUMBOSACRAL AREA WAS CLEANED WITH CHLORAPREP SOLUTION AND DRAPED ASEPTICALLY. THE PROCEDURE WAS DONE UNDER STERILE CONDITIONS. I CHECKED LATERALITY AND THE LEVEL WHERE THE PROCEDURE WAS GOING TO BE PERFORMED WITH THE PATIENT AND THE SUPPORTING STAFF AT THE MOMENT OF THE TIME OUT IN THE PROCEDURE ROOM. UNDER FLUOROSCOPIC GUIDANCE, TARGET POINT WAS SELECTED AT THE LOWER BORDER OF THE RIGHT AND LEFT SACROILIAC JOINT. TARGET POINT WAS SELECTED AFTER MEDIAL ROTATION AND TILT OF THE MAGNIFIER OF THE C-ARM. LIDOCAINE WAS USED TO NUMB THE SKIN AND SUBCUTANEOUS TISSUE BELOW IT. A SPINAL NEEDLE, 22-GAUGE, WAS ADVANCED UNDER FLUOROSCOPIC GUIDANCE AND FOLLOWING PATIENT FEEDBACK UNTIL THE TARGET AREA WAS TOUCHED. THE POSITION OF THE NEEDLE WAS VERIFIED WITH AP AND LATERAL VIEWS. AFTER PROPER POSITION OF THE NEEDLE WAS ACHIEVED, ISOVUE M DYE 30%, 0.25 ML, WAS INJECTED SHOWING SPREAD OF THE DYE. THEN, A SOLUTION OF 20 MG OF KENALOG WAS INJECTED IN RIGHT AND LEFT JOINT WITH 3 ML OF BUPIVACAINE 0.125%. THERE WAS NO EVIDENCE OF BLOOD, PARESTHESIA OR CEREBROSPINAL FLUID DURING THE PROCEDURE. THE PATIENT WAS SENT TO THE RECOVERY ROOM. THE PATIENT WAS MOVING THE EXTREMITIES AND DOING WELL. THERE WAS NO COMPLICATION DURING THE PROCEDURE. FLUOROSCOPY TIME WAS 8 SECONDS POST PROCEDURE NOTE THE PATIENT WILL BE SEEN IN A FOLLOW UP IN THE NEXT FEW WEEKS. INSTRUCTIONS WERE GIVEN, QUESTIONS WERE ANSWERED, AND THE PATIENT EXPRESSED UNDERSTANDING AND AGREED WITH THE PLAN. I, CHARLY ASTORGA, DOCUMENTED THE ABOVE INFORMATION ACTING A SCRIBE FOR DR. NAPOLES. I HAVE REVIEWED THE ABOVE DOCUMENT, WRITTEN BY CHARLY ASTORGA SCRIBTeto AND I VERIFY THAT IT IS ACCURATE. PROCEDURE CODES 21003 INJECT SACROILIAC JOINT, MODIFIERS: 50 [id number] RADXPS IN END [id number] PXD DISPOSITION & COMMUNICATION FOLLOW UP 3 WEEKS ELECTRONICALLY SIGNED BY ROLANDA NAPOLES MD, MD ON 09/18/2018 AT 07:19 PM EDT DISCLAIMER : THIS IS A VISIT SUMMARY EXTRACTED FROM THE [employer] CHART. IT IS NOT A COPY OF THE [employer] PROGRESS NOTE. MTDDonovan
== END ==
LOC: M PAIN 10:45
PROVIDERS: ATTEND Anesthesiology
DX: M46.1 Sacroiliitis, not elsewhere classified (principal); I10 Essential (primary) hypertension; J84.10 Pulmonary fibrosis, unspecified; M25.552 Pain in left hip; M25.561 Pain in right knee; M25.551 Pain in right hip; H04.123 Dry eye syndrome of bilateral lacrimal glands; F17.210 Nicotine dependence, cigarettes, uncomplicated; Z79.891 Long term (current) use of opiate analgesic; Z79.899 Other long term (current) drug therapy
CPT/HCPCS: G0260; J3301; Q9967

== ENCOUNTER → 2018-10-04 | Outpatient (CLI) | payer MEDICARE ==
[~2018-10-04] MED LIST changes: -BUPIVACAINE HCL 0.25% 30 ML VIAL As Ordered ONE; -ISOVUE-M 300 61% 15ML VIAL (Q9967) As Ordered ONE; -LIDOCAINE 1% SDV INJ 30 ML VIAL As Ordered ONE; -TRIAMCINOLONE ACETONIDE SUSP 40 MG/ML VIAL (J3301) As Ordered ONE
== END ==
LOC: M PAIN 10:00
PROVIDERS: ATTEND Nurse Practitioner Family
DX: M54.5 Low back pain (principal); Z53.21 Procedure and treatment not carried out due to patient leaving prior to being seen by health care provider

== ENCOUNTER → 2018-10-05 | Outpatient (CLI) | payer MEDICARE | LOC: M PAIN 08:45 | PROVIDERS: ATTEND Nurse Practitioner Family | DX: M46.1 Sacroiliitis, not elsewhere classified (principal); Z53.8 Procedure and treatment not carried out for other reasons ==

== ENCOUNTER 2019-04-30 12:03 | Emergency (ER) | payer MEDICARE ==
[~2019-04-30] VITALS: Ht 172.7 cm; Wt 77.5 kg
--- NOTE | 2019-04-30 13:11 | REP ---
Clinical: Right and 0 joules of the . Comparison: 05/20/2017. Technique: PA and lateral. Findings: The mediastinum and cardiac silhouette are normal. The lung wagoner are clear and without acute consolidation, effusion, or pneumothorax. The skeletal structures are intact and normal. Impression: 1. No acute cardiopulmonary process. Electronically Signed by Joey Melendrez MD 04/30/2019 01:03 P
[2019-04-30 13:35] LABS: INFLUENZA A AMPLIFICATION POSITIVE (NEGATIVE); INFLUENZA B AMPLIFICATION NEGATIVE (NEGATIVE)
[2019-04-30] MEDS ORDERED: OSEL75CA PO (13:50)
[2019-04-30 14:12] VITALS: BP 129/81
== END 2019-04-30 14:13 | disposition home or self-care (01) ==
LOC: M ED 12:03
DX: J09.X9 Influenza due to identified novel influenza A virus with other manifestations (principal); B34.9 Viral infection, unspecified; I11.9 Hypertensive heart disease without heart failure; J44.9 Chronic obstructive pulmonary disease, unspecified; F17.210 Nicotine dependence, cigarettes, uncomplicated; Z79.84 Long term (current) use of oral hypoglycemic drugs; Z79.899 Other long term (current) drug therapy

== ENCOUNTER 2020-08-22 13:04 | Emergency (ER) | payer MEDICARE ==
[~2020-08-22] VITALS: Ht 172.7 cm; Wt 70.5 kg
[2020-08-22 13:04] VITALS: BP 132/85
[~2020-08-22 13:04] MED LIST changes: -AMIT25TA PO; +AMIT25TA17 PO; -LISI-538; +LISI10TA22 PO; -LISI10TA4 PO; +LISI20TA33; +OSEL75CA PO; +PANT40TA29 PO; -PANT40TA3 PO
[2020-08-22 13:44] LABS: BASO # 0.1 10^3/uL (0.0-0.2); BASO % 0.7 % (0.0-1.0); EOS # 0.2 10^3/uL (0.0-0.5); EOS % 2.2 % (0.0-3.0); HEMATOCRIT 48.1 % (42.0-52.0); HEMOGLOBIN 16.3 g/dl (13.5-17.5); LYMPH # 2.1 10^3/uL (1.5-5.0); LYMPH % 24.2 % (24.0-44.0); MEAN CORPUSCULAR HEMOGLOBIN 31.5 pg (27.0-33.0); MEAN CORPUSCULAR HGB CONC 33.9 g/dl (32.0-36.5); MEAN CORPUSCULAR VOLUME 92.9 fl (80.0-96.0); MONO # 0.5 10^3/uL (0.0-0.8); MONO % 5.9 % (2.0-8.0); NEUTROPHILS # 5.8 10^3/uL (1.5-8.5); NEUTROPHILS % 66.7 % (36.0-66.0); PLATELET COUNT, AUTOMATED 265 10^3/uL (150-450); RED BLOOD COUNT 5.18 10^6/uL (4.30-6.10); WHITE BLOOD COUNT 8.7 10^3/uL (4.0-10.0)
[2020-08-22 14:07] LABS: ALT/SGPT 27 U/L (12-78); BILIRUBIN,DIRECT 0.2 MG/DL (0.0-0.2); BILIRUBIN,TOTAL 0.8 MG/DL (0.2-1.0); BLOOD UREA NITROGEN 14 MG/DL (7-18); CALCIUM LEVEL 9.1 MG/DL (8.8-10.2); CARBON DIOXIDE LEVEL 27 MEQ/L (21-32); CHLORIDE LEVEL 109 MEQ/L (98-107); CREATININE FOR GFR 0.88 MG/DL (0.70-1.30); GLOMERULAR FILTRATION RATE > 60.0 (>49); GLUCOSE, FASTING 98 MG/DL (70-100); LIPASE 363 U/L (73-393); POTASSIUM SERUM 4.3 MEQ/L (3.5-5.1); SODIUM LEVEL 141 MEQ/L (136-145); TOTAL PROTEIN 7.3 GM/DL (6.4-8.2)
== END 2020-08-22 16:14 | disposition left against medical advice (07) ==
LOC: M ED 13:04
DX: Z53.21 Procedure and treatment not carried out due to patient leaving prior to being seen by health care provider (principal)

== ENCOUNTER 2020-12-27 00:15 | Emergency (ER) | payer MEDICARE, OTHER ==
[~2020-12-27] VITALS: Ht 172.7 cm; Wt 77.3 kg
[~2020-12-27 00:15] MED LIST changes: +DOXY-443 PO; -DOXY100C37 PO
[2020-12-27] MEDS ORDERED: BOOSTRIX/ADACEL VACCINE (DIPHTH/PERTUSS/ACELL/TETANUS) 0.5ML SYR IM ONE (03:00)
[2020-12-27 03:20] VITALS: BP 147/83
== END 2020-12-27 03:42 | disposition home or self-care (01) ==
LOC: M ED 00:15
DX: S51.812A Laceration without foreign body of left forearm, initial encounter (principal); W26.0XXA Contact with knife, initial encounter; Y92.009 Unspecified place in unspecified non-institutional (private) residence as the place of occurrence of the external cause; Y93.89 Activity, other specified; Y99.8 Other external cause status; M54.9 Dorsalgia, unspecified; G89.29 Other chronic pain; F17.210 Nicotine dependence, cigarettes, uncomplicated; Z79.899 Other long term (current) drug therapy

== ENCOUNTER 2021-01-27 21:04 | Emergency (ER) | payer MEDICARE ==
[~2021-01-27] VITALS: Ht 172.7 cm; Wt 79.1 kg
[2021-01-27 21:05] VITALS: BP 185/92
--- OUTSIDE RECORDS SUMMARY | 2021-01-27 21:10 | CCD ---
Author Author [facility] Organization [facility] Address Unknown Phone Unavailable Support Name Relationship Address Phone DISABLED Next Of Kin Unknown [place]available [place] [address] MARIAELENA TRANSFER SIGHT Next Of Kin [address] [place] [address] Unavailable UE Next Of Kin Unknown Unavailable JEREMY COX Next Of Kin [address] [place] [address] JEREMY COX ECON [address] [place] [address] Maria De Jesus Cox ECON Unknown [phone] Re-disclosure Warning The records that you are about to access may contain information from federally-assisted alcohol or drug abuse programs. If such information is present, then the following federally mandated warning applies: This information has been disclosed to you from records protected by federal confidentiality rules (42 CFR part 2). The federal rules prohibit you from making any further disclosure of this information unless further disclosure is expressly permitted by the written consent of the person to whom it pertains or as otherwise permitted by 42 CFR part 2. A general authorization for the release of medical or other information is NOT sufficient for this purpose. The Federal rules restrict any use of the information to criminally investigate or prosecute any alcohol or drug abuse patient.The records that you are about to access may contain highly sensitive health information, the redisclosure of which is protected by Article 27-F of the [facility] Public Health law. If you continue you may have access to information: Regarding HIV / AIDS; Provided by facilities licensed or operated by the [facility] Office of Mental Health; or Provided by the [facility] Office for People With Developmental Disabilities. If such information is present, then the following [facility] mandated warning applies: This information has been disclosed to you from confidential records which are protected by state law. State law prohibits you from making any further disclosure of this information without the specific written consent of the person to whom it pertains, or as otherwise permitted by law. Any unauthorized further disclosure in violation of state law may result in a fine or skilled nursing sentence or both. A general authorization for the release of medical or other information is NOT sufficient authorization for further disc losure. Family History Family Member Name Family Member Gender Family Member Status Date o f Status Description Data Source(s) Unknown Male Problem MEDENT ([facility] () Unknown Female Problem MEDENT ([facility]) Unknown Female Problem [facility] ([facility] ) Medications No Information Insurance Providers Payer name Policy type / Coverage type Policy ID Covered democrat ID Covered democrat's relationship to bella Policy Bella Plan Information [facility] Individual Policy [facility] [id number] S f [facility] I [id number] Self [id number] [facility] [id number] Self 1 [id number] MEDICARE [id number] SP [id number] A Medicare [place] of [place] Medicare Primary 0 [id number] Self 0 Medicare [place] Medicare Primary 0 [id number] Self 0 Medicare [place] Medicare Primary 0 [id number] Self 0 Medicare [place] Medicare Primary 0 [id number] Self 0 Medicare [place] Medicare Primary 0 [id number] Self 0 Medicare [place] Medicare Primary 0 [id number] Self 0 Medicare Medicare Primary [id number] Self [id number] ANS-Medicare Part B [id number] ANS-Medicaid [id number] ANSI-Medicaid [id number] ANSI-Medicare Part B [id number] ANSI-Medicaid [id number] ANSI-Medicare Part B [id number] MEDICAID [id number] ANSI-Medicaid [id number] ANSI-Medicare Part B [id number] ANSI-Medicare Part B [id number] ANSI-Medicaid [id number] ANSI-Medicaid [id number] ANSI-Medicare Part B [id number] ANSI-Medicare Part B [id number] ANSI-Medicaid [id number] ANSI-Medicaid [id number] ANSI-Medicare Part B [id number] ANSI-Medicare Part B [id number] ANSI-Medicaid [id number] ANSI-Medicare Part B [id number] ANSI-Medicaid [id number] Medicaid Medicaid [id number] S elf [id number] Medicare Medicare Primary [id number] Self [id number] ANSI-Medicaid [id number] ANSI-Medicare Part B [id number] Medicaid [facility] Supplemental Policy 0 [id number] Self 0 ANSI-Medicare Part B [id number] ANSI-Medicaid [id number] MEDICARE C [id number] S [id number] A MEDICAID M [id number] S [id number] UNHC COMMUNITY PLAN MCDHMO [id number] SP [id number] Medicaid [facility] Part B [id number] Self [id number] Medicare [facility] Medicare Primary [id number] Self [id number] [facility] O [id number] S [id number] Medicaid [facility] Supplemental Policy 0 [id number] Self 0 Medicaid [facility] Supplemental Policy 0 [id number] Self 0 MEDICARE [id number] SP [id number] A UNHC COMMUNITY PLAN MCDHMO [id number] SP [id number] Medicaid [facility] Supplemental Policy 0 [id number] Self 0 UNHC COMMUNITY PLAN MCDHMO [id number] SP [id number] [facility]) O [id number] S [id number] UNHC COMMUNITY PLAN MCDHMO [id number] SP [id number] UNHC COMMUNITY PLAN MCDHMO [id number] SP [id number] [facility] O [id number] S [id number] UNHC AMERICHOICE XIX -HMO [id number] 18 [id number] [facility] Medicaid Medicaid [id number] [facility] Community Plan Commercial [id number] Self BLUE CROSS SAAB PLAN [id number] SP [id number] BCBS [facility] HMO [id number] S [id number] MARIA LUISA CO SELF INSURED [id number] SP [id number] OTHER WORKERS COMPENSATION [id number] SP [id number] HMO BLUE [id number] SP [id number] MEDICARE [id number] SP [id number] MEDICARE C [id number] S [id number] MEDICARE [id number] SP [id number] A ANSI-Medicare Part B [id number] ANSI-Medicare Part B [id number] ANSI-Medicare Part B [id number] ANSI-Medicare Part B [id number] [place] Supplemental Policy 0 [id number] Self 0 [place] Supplemental Policy 0 [id number] Self 0 Medicaid Medicaid [id number] Self [id number] Problems, Conditions, and Diagnoses No Information Surgeries/Procedures No Information Results No Information Social History No Information
--- NOTE | 2021-01-27 21:51 | REPVR ---
PROCEDURE INFORMATION: Exam: XR Right Shoulder Exam date and time: 01/27/2021 9:31 PM Age: 65 years old Clinical indication: Pain; Shoulder; Right; Additional info: [place] a "pop" while lifting garbage TECHNIQUE: Imaging protocol: XR Right shoulder. Views: 2 or more views. COMPARISON: CR Shoulder, complete 03/27/2016 11:20 AM FINDINGS: Bones/joints: Normal. Soft tissues: Normal. IMPRESSION: No acute findings. Electronically signed by: Yobani Garza On 01/27/2021 21:51:04 PM
--- OUTSIDE RECORDS SUMMARY | 2021-01-28 00:28 | CCD ---
Author Author [facility] Organization [facility] Address Unknown Phone Unavailable Support Name Relationship Address Phone DISABLED Next Of Kin Unknown Unavailable DIS[place] [address] MARIAELENA TRANSFER SIGHT Next Of Kin [address] [place] [address] Unavailable UE Next Of Kin Unknown Unavailable JEREMY COX Next Of Kin [address] [place] [address] JEREMY COX ECON [address] [place] [address] Maria De Jesus Cxo ECON Unknown Re-disclosure Warning The records that you are [...] is protected by Article 27-F of the [facility] Public Health law. If you continue you may have access to information: Regarding HIV / AIDS; Provided by facilities licensed or operated by the [facility] Office of Mental Health; or Provided by the [facility] Office for People With Developmental Disabilities. If such information is present, then the following [facility] mandated warning applies: This information has [...] law may result in a fine or half-way sentence or both. A general authorization for the release of medical or other information is NOT sufficient authorization for further disc losure. Family History Family Member Name Family Member Gender Family Member Status Date o f Status Description Data Source(s) Unknown Male Problem MEDENT ([facility] () Unknown Female Problem MEDENT ([facility]) Unknown Female Problem [facility] ([facility] ) Medications No Information Insurance Providers Payer name Policy type / Coverage type Policy ID Covered libertarian ID Covered libertarian's relationship to bella Policy Bella Plan Information [facility] Individual Policy [facility] [id number] S f [facility] I [id number] Self [id number] [facility] Commercial [id number] Self [id number] MEDICARE [id number] SP [id number] A Medicare [place] Medicare Primary 0 [id number] Self 0 [place] Medicare Primary 0 [id number] Self 0 Medicare [place] Medicare Primary 0 [id number] Self 0 Medicare [place] Medicare Primary 0 [id number] Self 0 [place] Medicare Primary 0 [id number] Self 0 [place] Medicare Primary 0 [id number] Self 0 Medicare Medicare Primary [id number] Self [id number] ANS-Medicare Part B [id number] ANS-Medicaid [id number] ANSI-Medicaid [id number] ANSI-Medicare Part B [id number] ANSI-Medicaid [id number] ANSI-Medicare Part B [id number] MEDICAID [id number] ANSI-Medicaid [id number] ANSI-Medicare Part B [id number] ANSI-Medicare Part B [id number] ANSI-Medicaid [id number] ANSI-Medicaid [id number] ANSI-Medicare Part B [id number] ANSI-Medicare Part B [id number] ANSI-Medicaid [id number] ANSI-Medicaid [id number] ANSI-Medicare Part B [id number] ANSI-Medicare Part B [id number] ANSI-Medicaid [id number] ANSI-Medicare Part B [id number] ANSI-Medicaid [id number] Medicaid Medicaid [id number] S elf [id number] Medicare Medicare Primary [id number] Self [id number] ANSI-Medicaid [id number] ANSI-Medicare Part B [id number] Medicaid [facility] Supplemental Policy 0 [id number] Self 0 ANSI-Medicare Part B [id number] ANSI-Medicaid [id number] MEDICARE C [id number] S [id number] A MEDICAID M [id number] S [id number] UNHC COMMUNITY PLAN MCDHMO [id number] SP [id number] Medicaid [facility] Part B [id number] Self [id number] Medicare [facility] Medicare Primary [id number] Self [id number] [facility] O [id number] S [id number] Medicaid [facility] Supplemental Policy 0 [id number] Self 0 Medicaid [facility] Supplemental Policy 0 [id number] Self 0 MEDICARE [id number] SP [id number] A UNHC COMMUNITY PLAN MCDHMO [id number] SP [id number] Medicaid [facility] Supplemental Policy 0 [id number] Self 0 UNHC COMMUNITY PLAN MCDHMO [id number] SP [id number] [facility](MCAID) O [id number] S [id number] UNHC COMMUNITY PLAN MCDHMO [id number] SP [id number] UNHC COMMUNITY PLAN MCDHMO [id number] SP [id number] [facility] O [id number] S [id number] UNHC AMERICHOICE XIX -HMO [id number] 18 [id number] [facility] Medicaid Medicaid [id number] Self [facility] Community Plan Commercial [id number] Self BLUE CROSS SABA PLAN [id number] SP [id number] BCBS [facility] HMO [id number] S [id number] MARIA LUISA CO SELF INSURED [id number] SP [id number] OTHER WORKERS COMPENSATION [id number] SP [id number] HMO BLUE [id number] SP [id number] MEDICARE [id number] SP [id number] MEDICARE C [id number] S [id number] MEDICARE [id number] SP [id number] A ANSI-Medicare Part B [id number] ANSI-Medicare Part B [id number] ANSI-Medicare Part B [id number] ANSI-Medicare Part B [id number] [place] of [place] Supplemental Policy 0 [id number] Self 0 [place] Supplemental Policy 0 [id number] Self 0 Medicaid Medicaid [id number] Self [id number] Problems, Conditions, and Diagnoses No Information Surgeries/Procedures No Information Results No Information Social History No Information
== END 2021-01-28 00:02 | disposition left against medical advice (07) ==
LOC: M ED 21:04
DX: Z53.21 Procedure and treatment not carried out due to patient leaving prior to being seen by health care provider (principal)

== ENCOUNTER 2021-03-10 08:33 | Emergency (ER) | payer MEDICARE, OTHER ==
[~2021-03-10] VITALS: Ht 172.7 cm; Wt 77.0 kg
[2021-03-10] MEDS ORDERED: IBUP-1022 PO (09:42)
[2021-03-10] MEDS ORDERED: PERC5TAB12 PO (09:43)
[2021-03-10 10:16] VITALS: BP 140/90
== END 2021-03-10 10:17 | disposition home or self-care (01) ==
LOC: M ED 08:33
DX: S40.012A Contusion of left shoulder, initial encounter (principal); S40.022A Contusion of left upper arm, initial encounter; S50.02XA Contusion of left elbow, initial encounter; I10 Essential (primary) hypertension; F17.200 Nicotine dependence, unspecified, uncomplicated; W00.0XXA Fall on same level due to ice and snow, initial encounter; Y92.009 Unspecified place in unspecified non-institutional (private) residence as the place of occurrence of the external cause; Y93.9 Activity, unspecified; Y99.9 Unspecified external cause status

== ENCOUNTER 2021-04-17 19:26 | Emergency (ER) | payer OTHER ==
[~2021-04-17] VITALS: Ht 172.7 cm; Wt 75.0 kg
[~2021-04-17 19:26] MED LIST changes: +IBUP-1022 PO
[2021-04-17 19:27] VITALS: BP 124/69
== END 2021-04-17 21:41 | disposition left against medical advice (07) ==
LOC: M ED 19:26
DX: Z53.21 Procedure and treatment not carried out due to patient leaving prior to being seen by health care provider (principal)

== ENCOUNTER 2021-06-28 07:36 | Emergency (ER) | payer MEDICARE, OTHER ==
[~2021-06-28] VITALS: Ht 172.7 cm; Wt 76.0 kg
[2021-06-28 09:07] LABS: BASO # 0.1 10^3/uL (0.0-0.2); BASO % 0.6 % (0.0-1.0); EOS # 0.2 10^3/uL (0.0-0.5); EOS % 1.7 % (0.0-3.0); HEMATOCRIT 45.6 % (42.0-52.0); HEMOGLOBIN 15.9 g/dl (13.5-17.5); LYMPH # 2.4 10^3/uL (1.5-5.0); LYMPH % 18.7 % (24.0-44.0); MEAN CORPUSCULAR HEMOGLOBIN 32.2 pg (27.0-33.0); MEAN CORPUSCULAR HGB CONC 34.9 g/dl (32.0-36.5); MEAN CORPUSCULAR VOLUME 92.3 fl (80.0-96.0); MONO # 0.8 10^3/uL (0.0-0.8); MONO % 6.1 % (2.0-8.0); NEUTROPHILS # 9.2 10^3/uL (1.5-8.5); NEUTROPHILS % 72.4 % (36.0-66.0); PLATELET COUNT, AUTOMATED 298 10^3/uL (150-450); RED BLOOD COUNT 4.94 10^6/uL (4.30-6.10); WHITE BLOOD COUNT 12.7 10^3/uL (4.0-10.0)
[2021-06-28] MEDS ORDERED: NS 1,000 ML IV ONE (09:15)
[2021-06-28] MEDS ORDERED: KETOROLAC 30 MG/ML 1ML VIAL IV ONE (09:15)
[2021-06-28] MEDS ORDERED: ONDANSETRON 4MG/2ML VIAL IV ONE (09:15)
[2021-06-28 09:20] LABS: INR 0.98; PROTHROMBIN TIME 13.4 SECONDS (12.7-14.5)
[2021-06-28 09:21] LABS: PARTIAL THROMBOPLASTIN TIME 35.1 SECONDS (25.9-37.0)
[2021-06-28 09:39] LABS: ALBUMIN 3.7 GM/DL (3.2-5.2); BILIRUBIN,DIRECT 0.1 MG/DL (0.0-0.2); BILIRUBIN,TOTAL 0.4 MG/DL (0.2-1.0); TOTAL PROTEIN 7.2 GM/DL (6.4-8.2)
[2021-06-28] MEDS ORDERED: ISOVUE-370 76% 100ML VIAL As Ordered ONE (10:26)
[2021-06-28] MEDS ORDERED: MORPHINE 4 MG/ML 1ML VIAL/SYRINGE IV ONE (11:15)
[2021-06-28 12:13] VITALS: BP 141/75
[2021-06-28] MEDS ORDERED: ONDA4TAB6 PO (12:35)
[2021-06-28] MEDS ORDERED: DICY10CA13 PO (12:35)
== END 2021-06-28 12:55 | disposition home or self-care (01) ==
LOC: M ED 07:36
DX: R10.9 Unspecified abdominal pain (principal); R11.2 Nausea with vomiting, unspecified; I10 Essential (primary) hypertension; K21.9 Gastro-esophageal reflux disease without esophagitis; R25.1 Tremor, unspecified; F17.210 Nicotine dependence, cigarettes, uncomplicated
CPT/HCPCS: 74177; 76705; 80047; 80076; 83690; 85025; 85610; 85730; 96361; 96374; 96375; 99284; J1885; J2270; J2405; Q9967

== ENCOUNTER → 2021-08-08 | Outpatient (CLI) | payer MEDICARE ==
[~2021-08-08] MED LIST changes: +DICY10CA13 PO; +E-Z-GAS II EFFERVESCENT PACKET (SODIUM BICARB./CITRIC ACID/SIMETHICONE) As Ordered ONE; +E-Z-HD 98% w/w 340GM SUSP BTL As Ordered ONE; +E-Z-PAQUE 96% w/w SUSP 176GM BTL As Ordered ONE; +ONDA4TAB6 PO
== END ==
LOC: M RAD 11:15
PROVIDERS: ATTEND Surgery
DX: R10.84 Generalized abdominal pain (principal)

== ENCOUNTER 2022-01-14 01:02 | Emergency (ER) | payer MEDICARE ==
[~2022-01-14] VITALS: Ht 172.7 cm; Wt 76.3 kg
[~2022-01-14 01:02] MED LIST changes: -E-Z-GAS II EFFERVESCENT PACKET (SODIUM BICARB./CITRIC ACID/SIMETHICONE) As Ordered ONE; -E-Z-HD 98% w/w 340GM SUSP BTL As Ordered ONE; -E-Z-PAQUE 96% w/w SUSP 176GM BTL As Ordered ONE
[2022-01-14] MEDS ORDERED: ESOM40CA35 (01:19)
[2022-01-14 01:45] VITALS: BP 133/75
[2022-01-14 02:04] LABS: BASO # 0.1 10^3/uL (0.0-0.2); BASO % 0.6 % (0.0-1.0); EOS # 0.1 10^3/uL (0.0-0.5); EOS % 0.6 % (0.0-3.0); HEMATOCRIT 46.7 % (42.0-52.0); HEMOGLOBIN 16.2 g/dl (13.5-17.5); LYMPH # 1.7 10^3/uL (1.5-5.0); LYMPH % 14.3 % (24.0-44.0); MEAN CORPUSCULAR HEMOGLOBIN 31.4 pg (27.0-33.0); MEAN CORPUSCULAR HGB CONC 34.7 g/dl (32.0-36.5); MEAN CORPUSCULAR VOLUME 90.5 fl (80.0-96.0); MONO # 0.8 10^3/uL (0.0-0.8); MONO % 7.1 % (2.0-8.0); NEUTROPHILS # 9.1 10^3/uL (1.5-8.5); PLATELET COUNT, AUTOMATED 288 10^3/uL (150-450); RED BLOOD COUNT 5.16 10^6/uL (4.30-6.10); WHITE BLOOD COUNT 11.9 10^3/uL (4.0-10.0)
[2022-01-14 02:38] LABS: ALBUMIN 4.1 GM/DL (3.2-5.2); ALT/SGPT 132 U/L (12-78); BILIRUBIN,DIRECT 0.7 MG/DL (0.0-0.2); BILIRUBIN,TOTAL 1.3 MG/DL (0.2-1.0); BLOOD UREA NITROGEN 13 MG/DL (7-18); CALCIUM LEVEL 9.1 MG/DL (8.8-10.2); CARBON DIOXIDE LEVEL 28 MEQ/L (21-32); CHLORIDE LEVEL 103 MEQ/L (98-107); CREATININE FOR GFR 1.04 MG/DL (0.70-1.30); GLOMERULAR FILTRATION RATE > 60.0 (>49); GLUCOSE, FASTING 140 MG/DL (70-100); LIPASE 132 U/L (73-393); POTASSIUM SERUM 3.8 MEQ/L (3.5-5.1); SODIUM LEVEL 140 MEQ/L (136-145); TOTAL PROTEIN 7.6 GM/DL (6.4-8.2)
== END 2022-01-14 02:06 | disposition left against medical advice (07) ==
LOC: M ED 01:02 → EDBD 01:02 → M ED 02:06
DX: Z53.21 Procedure and treatment not carried out due to patient leaving prior to being seen by health care provider (principal)

== ENCOUNTER → 2022-04-17 | Outpatient (REF) | payer MEDICARE ==
[~2022-04-17] MED LIST changes: +ESOM40CA35
[2022-04-17 14:26] LABS: ALBUMIN 3.8 G/DL (3.2-5.2); ALKALINE PHOSPHATASE 116 U/L (46-116); ALT/SGPT 19 U/L (7.0-40); AST/SGOT 18 U/L (<34); BILIRUBIN,TOTAL 0.8 MG/DL (0.3-1.2); BLOOD UREA NITROGEN 14 MG/DL (9-23); CALCIUM LEVEL 8.3 MG/DL (8.3-10.6); CARBON DIOXIDE LEVEL 24 MMOL/L (20-31); CHLORIDE LEVEL 107 MMOL/L (98-107); CHOLESTEROL LEVEL 123 MG/DL (<200); CHOLESTEROL RISK RATIO 4.24 (<5); CREATININE FOR GFR 0.83 MG/DL (0.70-1.30); GLOMERULAR FILTRATION RATE > 60.0 (>49); GLUCOSE, FASTING 108 MG/DL (74-106); NON-HDL-C 94 MG/DL; POTASSIUM SERUM 4.3 MMOL/L (3.5-5.1); SODIUM LEVEL 141 MMOL/L (136-145); TOTAL PROTEIN 6.8 G/DL (5.7-8.2); TRIGLYCERIDES LEVEL 120 MG/DL (<150)
[2022-04-17 14:30] LABS: THYROID STIMULATING HORMONE 2.659 uIU/ML (0.55-4.78)
[2022-04-17 14:31] LABS: FREE T4 1.02 NG/DL (0.89-1.76); TOTAL 25(OH) VITAMIN D 19.6 NG/ML (20.0-100.0)
[2022-04-17 14:40] LABS: BASO % 0.5 % (0.0-1.0); EOS # 0.3 10^3/uL (0.0-0.5); EOS % 3.2 % (0.0-3.0); HEMATOCRIT 46.8 % (42.0-52.0); HEMOGLOBIN 15.3 g/dl (13.5-17.5); LYMPH # 2.2 10^3/uL (1.5-5.0); LYMPH % 25.3 % (24.0-44.0); MEAN CORPUSCULAR HEMOGLOBIN 30.7 pg (27.0-33.0); MEAN CORPUSCULAR HGB CONC 32.7 g/dl (32.0-36.5); MEAN CORPUSCULAR VOLUME 93.8 fl (80.0-96.0); MONO # 0.7 10^3/uL (0.0-0.8); MONO % 7.6 % (2.0-8.0); NEUTROPHILS # 5.6 10^3/uL (1.5-8.5); NEUTROPHILS % 63.1 % (36.0-66.0); PLATELET COUNT, AUTOMATED 303 10^3/uL (150-450); RED BLOOD COUNT 4.99 10^6/uL (4.30-6.10); WHITE BLOOD COUNT 8.8 10^3/uL (4.0-10.0)
[2022-04-17 16:19] LABS: HEMOGLOBIN A1c 5.1 % (4.0-6.0)
== END ==
LOC: M LAB REF 12:48
PROVIDERS: ATTEND Nurse Practitioner Family
DX: Z13.228 Encounter for screening for other metabolic disorders (principal)

== ENCOUNTER → 2022-05-08 | Outpatient (CLI) | payer MEDICARE | LOC: M RAD 10:05 | PROVIDERS: ATTEND Nurse Practitioner Family | DX: M25.512 Pain in left shoulder (principal) ==

== ENCOUNTER 2022-06-20 14:51 | Emergency (ER) | payer MEDICARE ==
[~2022-06-20] VITALS: Ht 172.7 cm; Wt 75.5 kg
[2022-06-20 14:52] VITALS: BP 151/73
[2022-06-20] MEDS ORDERED: SERT50TA29 (15:05)
[2022-06-20] MEDS ORDERED: FAMO20TA5 (15:05)
[2022-06-20] MEDS ORDERED: LISI10TA22 (15:05)
[2022-06-20] MEDS ORDERED: NS 1,000 ML IV ONE (15:35)
[2022-06-20] MEDS ORDERED: KETOROLAC 30 MG/ML 1ML VIAL IV ONE (15:35)
[2022-06-20 15:48] LABS: BASO # 0.1 10^3/uL (0.0-0.2); BASO % 0.5 % (0.0-1.0); EOS # 0.2 10^3/uL (0.0-0.5); EOS % 1.3 % (0.0-3.0); HEMATOCRIT 48.1 % (42.0-52.0); HEMOGLOBIN 16.6 g/dl (13.5-17.5); LYMPH # 2.2 10^3/uL (1.5-5.0); LYMPH % 18.1 % (24.0-44.0); MEAN CORPUSCULAR HEMOGLOBIN 31.4 pg (27.0-33.0); MEAN CORPUSCULAR HGB CONC 34.5 g/dl (32.0-36.5); MEAN CORPUSCULAR VOLUME 91.1 fl (80.0-96.0); NEUTROPHILS # 8.5 10^3/uL (1.5-8.5); NEUTROPHILS % 71.7 % (36.0-66.0); PLATELET COUNT, AUTOMATED 299 10^3/uL (150-450); RED BLOOD COUNT 5.28 10^6/uL (4.30-6.10); WHITE BLOOD COUNT 11.9 10^3/uL (4.0-10.0)
[2022-06-20 16:12] LABS: ALBUMIN 4.3 G/DL (3.2-5.2); BILIRUBIN,DIRECT 0.7 MG/DL (<0.4); BILIRUBIN,TOTAL 1.5 MG/DL (0.3-1.2); TOTAL PROTEIN 7.7 G/DL (5.7-8.2)
[2022-06-21] MEDS ORDERED: ONDANSETRON 4MG 2ML VIAL IV PRN (08:00)
[2022-06-21] MEDS ORDERED: oxyCODONE 5MG TAB PO PRN (08:00)
[2022-06-21] MEDS ORDERED: MEPERIDINE 25 MG/ML 1ML VIAL IV PRN (08:00)
[2022-06-21] MEDS ORDERED: fentaNYL 100 MCG/2 ML INJECTION IV PRN (08:00)
== END 2022-06-20 20:09 | disposition home or self-care (01) ==
LOC: M ED 14:51
DX: R10.9 Unspecified abdominal pain (principal); M54.50 Low back pain, unspecified; F32.A Depression, unspecified; I10 Essential (primary) hypertension; K21.9 Gastro-esophageal reflux disease without esophagitis; J44.9 Chronic obstructive pulmonary disease, unspecified; F17.200 Nicotine dependence, unspecified, uncomplicated; F10.10 Alcohol abuse, uncomplicated; Z79.811 Long term (current) use of aromatase inhibitors; Z79.899 Other long term (current) drug therapy; Z53.9 Procedure and treatment not carried out, unspecified reason
CPT/HCPCS: 74181; 76705; 80047; 80076; 81001; 83690; 85025; 96374; 99283; J1885

== ENCOUNTER 2022-06-25 07:12 | Emergency (ER) | payer MEDICARE, OTHER ==
[~2022-06-25] VITALS: Ht 172.7 cm; Wt 74.7 kg
[~2022-06-25 07:12] MED LIST changes: +FAMO20TA5; +LISI10TA22; +SERT50TA29
[2022-06-25] MEDS ORDERED: NS 1,000 ML IV ONE (07:40)
[2022-06-25 08:08] LABS: BASO # 0.1 10^3/uL (0.0-0.2); BASO % 0.7 % (0.0-1.0); EOS # 0.5 10^3/uL (0.0-0.5); EOS % 5.4 % (0.0-3.0); HEMATOCRIT 46.3 % (42.0-52.0); HEMOGLOBIN 15.5 g/dl (13.5-17.5); LYMPH # 2.8 10^3/uL (1.5-5.0); MEAN CORPUSCULAR HEMOGLOBIN 31.2 pg (27.0-33.0); MEAN CORPUSCULAR HGB CONC 33.5 g/dl (32.0-36.5); MEAN CORPUSCULAR VOLUME 93.2 fl (80.0-96.0); MONO # 0.6 10^3/uL (0.0-0.8); MONO % 6.2 % (2.0-8.0); NEUTROPHILS # 5.1 10^3/uL (1.5-8.5); NEUTROPHILS % 56.3 % (36.0-66.0); PLATELET COUNT, AUTOMATED 258 10^3/uL (150-450); RED BLOOD COUNT 4.97 10^6/uL (4.30-6.10); WHITE BLOOD COUNT 9.1 10^3/uL (4.0-10.0)
[2022-06-25 08:23] LABS: LIPASE 26 U/L (12-53)
[2022-06-25 08:26] LABS: ALBUMIN 3.7 G/DL (3.2-5.2); ALKALINE PHOSPHATASE 181 U/L (46-116); ALT/SGPT 102 U/L (7.0-40); APPEARANCE, URINE HAZY (CLEAR); AST/SGOT 26 U/L (<34); BACTERIA, URINE AUTO NEGATIVE (NEGATIVE); BILIRUBIN, URINE AUTO NEGATIVE (NEGATIVE); BILIRUBIN,DIRECT 0.2 MG/DL (<0.4); BILIRUBIN,TOTAL 0.6 MG/DL (0.3-1.2); BLOOD UREA NITROGEN 12 MG/DL (9-23); BLOOD, URINE BLOOD NEGATIVE (NEGATIVE); CALCIUM LEVEL 8.8 MG/DL (8.3-10.6); CARBON DIOXIDE LEVEL 29 MMOL/L (20-31); CHLORIDE LEVEL 103 MMOL/L (98-107); COLOR, URINE YELLOW (YELLOW); CREATININE FOR GFR 0.73 MG/DL (0.70-1.30); GLOMERULAR FILTRATION RATE > 60.0 (>49); GLUCOSE, FASTING 116 MG/DL (74-106); GLUCOSE, URINE (UA) AUTO NEGATIVE (NEGATIVE); KETONE, URINE AUTO TRACE mg/dL (NEGATIVE); LEUKOCYTE ESTERASE, URINE AUTO TRACE (NEGATIVE); MUCUS, URINE MODERATE (NEGATIVE); NITRITE, URINE AUTO NEGATIVE (NEGATIVE); POTASSIUM SERUM 3.9 MMOL/L (3.5-5.1); PROTEIN, URINE AUTO NEGATIVE (NEGATIVE); RBC, URINE AUTO 1 /HPF (0-3); SODIUM LEVEL 139 MMOL/L (136-145); SPECIFIC GRAVITY URINE AUTO 1.021 (1.002-1.035); SQUAMOUS EPITHELIAL CELL UR AU 0 /HPF (0-6); TOTAL PROTEIN 6.9 G/DL (5.7-8.2); WBC, URINE AUTO 15 /HPF (0-3)
[2022-06-25 13:39] VITALS: BP 171/89
== END 2022-06-25 13:40 | disposition home or self-care (01) ==
LOC: M ED 07:12
DX: K80.50 Calculus of bile duct without cholangitis or cholecystitis without obstruction (principal); I10 Essential (primary) hypertension; K21.9 Gastro-esophageal reflux disease without esophagitis; F32.A Depression, unspecified; F17.200 Nicotine dependence, unspecified, uncomplicated

== ENCOUNTER → 2023-10-22 | Outpatient (REF) | payer MEDICARE ==
[~2023-10-22] MED LIST changes: -AMIT25TA17 PO; +AMIT25TA19 PO; +DICY-61 PO; -DICY10CA13 PO; +DOXY-323 PO; -DOXY-443 PO; +ONDA-282 PO; -ONDA4TAB6 PO
[2023-10-22 14:05] LABS: CREATININE, URINE 137.3 MG/DL; MAU/CREAT RATIO 3.6 MCG/MG (0.0-30.0)
[2023-10-22 17:42] LABS: PSA SCREENING 0.83 NG/ML (< 4.00)
[2023-10-22 17:46] LABS: BLOOD UREA NITROGEN 22 MG/DL (9-23); CALCIUM LEVEL 9.2 MG/DL (8.3-10.6); CARBON DIOXIDE LEVEL 28 MMOL/L (20-31); CHLORIDE LEVEL 108 MMOL/L (98-107); CHOLESTEROL LEVEL 157 MG/DL (<200); CHOLESTEROL RISK RATIO 5.45 (<5); CREATININE FOR GFR 0.88 MG/DL (0.70-1.30); GLOMERULAR FILTRATION RATE > 60.0 (>49); GLUCOSE, FASTING 94 MG/DL (74-106); HDL CHOLESTEROL 28.8 MG/DL (>40); LDL CHOLESTEROL 84.6 MG/DL (<100); NON-HDL-C 128.2 MG/DL; POTASSIUM SERUM 4.7 MMOL/L (3.5-5.1); SODIUM LEVEL 143 MMOL/L (136-145); THYROID STIMULATING HORMONE 2.653 uIU/ML (0.55-4.78); TRIGLYCERIDES LEVEL 218 MG/DL (<150)
== END ==
LOC: M LAB REF 12:22
PROVIDERS: ATTEND Nurse Practitioner Family
DX: I10 Essential (primary) hypertension (principal); Z68.25 Body mass index [BMI] 25.0-25.9, adult; Z12.5 Encounter for screening for malignant neoplasm of prostate
CPT/HCPCS: 80048; 80061; 82043; 84443; G0103

== ENCOUNTER 2023-11-13 19:13 | Emergency (ER) | payer MEDICARE ==
[~2023-11-13] VITALS: Ht 175.3 cm; Wt 75.8 kg
[2023-11-13] MEDS ORDERED: LISI40TA4 PO (19:42)
[2023-11-13] MEDS ORDERED: ATOR1TAB21 PO (19:42)
[2023-11-13] MEDS ORDERED: ONDANSETRON 4MG 2ML VIAL IV ONE (20:55)
[2023-11-13 21:00] VITALS: BP 141/76; TEMP 97.9; O2SAT 96
[2023-11-13 21:02] LABS: BASO # 0.1 10^3/uL (0.0-0.2); BASO % 0.6 % (0.0-1.0); EOS % 0.3 % (0.0-3.0); HEMATOCRIT 44.7 % (42.0-52.0); HEMOGLOBIN 15.4 g/dl (13.5-17.5); LYMPH # 1.9 10^3/uL (1.5-5.0); LYMPH % 13.3 % (24.0-44.0); MEAN CORPUSCULAR HEMOGLOBIN 31.6 pg (27.0-33.0); MEAN CORPUSCULAR HGB CONC 34.5 g/dl (32.0-36.5); MEAN CORPUSCULAR VOLUME 91.6 fl (80.0-96.0); MONO # 0.7 10^3/uL (0.0-0.8); MONO % 4.5 % (2.0-8.0); NEUTROPHILS # 11.6 10^3/uL (1.5-8.5); NEUTROPHILS % 80.8 % (36.0-66.0); PLATELET COUNT, AUTOMATED 280 10^3/uL (150-450); RED BLOOD COUNT 4.88 10^6/uL (4.30-6.10); WHITE BLOOD COUNT 14.3 10^3/uL (4.0-10.0)
[2023-11-13 21:23] LABS: INR 1.09; PARTIAL THROMBOPLASTIN TIME 26.4 SECONDS (24.8-34.2); PROTHROMBIN TIME 13.8 SECONDS (12.5-14.5)
[2023-11-13] MEDS: diazePAM 10MG/2ML SYRINGE IV ONE (21:23)
[2023-11-13] MEDS: MECLIZINE 25 MG TABLET PO ONE (21:23)
[2023-11-13 21:25] LABS: CK-MB VALUE MASS < 1.0 NG/ML (<3.6); LIPASE 28 U/L (12-53)
[2023-11-13 21:27] LABS: ALBUMIN 3.8 G/DL (3.2-5.2); ALKALINE PHOSPHATASE 143 U/L (46-116); ALT/SGPT 17 U/L (7.0-40); AST/SGOT 14 U/L (<34); BILIRUBIN,DIRECT 0.3 MG/DL (<0.4); BILIRUBIN,TOTAL 0.7 MG/DL (0.3-1.2); BLOOD UREA NITROGEN 12 MG/DL (9-23); CALCIUM LEVEL 8.8 MG/DL (8.3-10.6); CARBON DIOXIDE LEVEL 25 MMOL/L (20-31); CHLORIDE LEVEL 109 MMOL/L (98-107); CREATININE FOR GFR 0.69 MG/DL (0.70-1.30); GLOMERULAR FILTRATION RATE > 60.0 (>49); GLUCOSE, FASTING 144 MG/DL (74-106); SODIUM LEVEL 140 MMOL/L (136-145); TOTAL PROTEIN 7.1 G/DL (5.7-8.2)
[2023-11-13 21:29] LABS: CPK CREATINE PHOSPHOKINASE 78 U/L (46-171); MB/CK RELATIVE INDEX 1.28 (< OR =4)
[2023-11-13 23:05] LABS: CK-MB VALUE MASS < 1.0 NG/ML (<3.6)
[2023-11-13 23:08] LABS: CPK CREATINE PHOSPHOKINASE 72 U/L (46-171); MB/CK RELATIVE INDEX 1.38 (< OR =4)
[2023-11-13] MEDS ORDERED: MECL-209 PO (23:41)
[2023-11-13 23:45] VITALS: BP 145/66; TEMP 96.7; O2SAT 96
== END 2023-11-13 23:55 | disposition home or self-care (01) ==
LOC: M ED 19:13
DX: H81.4 Vertigo of central origin (principal); I44.4 Left anterior fascicular block; I45.10 Unspecified right bundle-branch block; I10 Essential (primary) hypertension; K21.9 Gastro-esophageal reflux disease without esophagitis; F32.0 Major depressive disorder, single episode, mild; Z79.02 Long term (current) use of antithrombotics/antiplatelets; Z79.811 Long term (current) use of aromatase inhibitors; Z79.899 Other long term (current) drug therapy
CPT/HCPCS: 70450; 71045; 80048; 80076; 81001; 82550; 82553; 83690; 84484; 85025; 85610; 85730; 93005; 93041; 94760; 96374; 99285; J3360

== ENCOUNTER 2023-12-13 19:35 | Inpatient (IN) | payer MEDICARE ==
[~2023-12-13] VITALS: Ht 172.7 cm; Wt 76.0 kg
[~2023-12-13 19:35] MED LIST changes: +ATOR1TAB21 PO; -FAMO20TA5; +FAMO20TA5 PO; +GABA-1635; -GABA800T4; +LISI40TA4 PO; +MECL-209 PO; -SERT50TA29; +SERT50TA29 PO
[2023-12-13 19:56] LABS: VENOUS BASE EXCESS -7.1 (-2.0-2.0); VENOUS HCO3 18.3 MMOL/L (23.0-27.0); VENOUS O2 SATURATION 27.6 % (60.0-80.0); VENOUS PARTIAL PRESSURE CO2 36.8 mmHg (38.0-50.0); VENOUS PARTIAL PRESSURE O2 16.8 mmHg (30.0-50.0); VENOUS PH 7.315 UNITS (7.330-7.430); VENOUS STANDARD HCO3 17.3 MMOL/L; VENOUS TOTAL CO2 19.5 MMOL/L (24.0-28.0)
[2023-12-13 20:08] LABS: HEMATOCRIT 41.7 % (42.0-52.0); HEMOGLOBIN 14.1 g/dl (13.5-17.5); MEAN CORPUSCULAR HEMOGLOBIN 31.5 pg (27.0-33.0); MEAN CORPUSCULAR HGB CONC 33.8 g/dl (32.0-36.5); MEAN CORPUSCULAR VOLUME 93.1 fl (80.0-96.0); PLATELET COUNT, AUTOMATED 359 10^3/uL (150-450); RED BLOOD COUNT 4.48 10^6/uL (4.30-6.10); WHITE BLOOD COUNT 20.6 10^3/uL (4.0-10.0)
[2023-12-13] MEDS: NS 1,000 ML IV ONE ×2 (20:15→20:39)
[2023-12-13 20:26] LABS: CK-MB VALUE MASS < 1.0 NG/ML (<3.6)
[2023-12-13 20:28] LABS: ALBUMIN 4.1 G/DL (3.2-5.2); ALKALINE PHOSPHATASE 127 U/L (46-116); ALT/SGPT 47 U/L (7.0-40); AST/SGOT 24 U/L (<34); BILIRUBIN,DIRECT 0.4 MG/DL (<0.4); BILIRUBIN,TOTAL 0.8 MG/DL (0.3-1.2); BLOOD UREA NITROGEN 17 MG/DL (9-23); CALCIUM LEVEL 9.2 MG/DL (8.3-10.6); CARBON DIOXIDE LEVEL 20 MMOL/L (20-31); CHLORIDE LEVEL 106 MMOL/L (98-107); CPK CREATINE PHOSPHOKINASE 67 U/L (46-171); CREATININE FOR GFR 1.03 MG/DL (0.70-1.30); GLOMERULAR FILTRATION RATE > 60.0 (>49); GLUCOSE, FASTING 182 MG/DL (74-106); MB/CK RELATIVE INDEX 1.49 (< OR =4); POTASSIUM SERUM 3.5 MMOL/L (3.5-5.1); SODIUM LEVEL 140 MMOL/L (136-145); TOTAL PROTEIN 7.3 G/DL (5.7-8.2)
[2023-12-13 20:30] LABS: THYROID STIMULATING HORMONE 6.369 uIU/ML (0.55-4.78)
[2023-12-13 20:35] LABS: ATYPICAL LYMPH 4 % (0-5); EOSINOPHILS 1 % (0-3); LYMPHOCYTES 24 % (16-44); MONOCYTES 3 % (0-5); NEUTROPHILS 68 % (28-66); PLATELET ESTIMATE NORMAL (NORMAL)
[2023-12-13] MEDS ORDERED: ISOVUE-370 76% 100ML VIAL As Ordered ONE (20:38)
[2023-12-13] MEDS: CEFEPIME HCL 2 GM in D5W MINI-BAG PLUS 50 ML IV ONE (21:26)
[2023-12-13] MEDS: NS 500 ML IV ONE (21:26)
[2023-12-13 22:17] LABS: LIPASE 32 U/L (12-53)
[2023-12-13 22:19] LABS: AMYLASE 76 U/L (30-118)
[2023-12-13] MEDS ORDERED: ROSU40TA81 PO (23:21)
[2023-12-13] MEDS ORDERED: ASPI81TA26 PO (23:21)
[2023-12-13] MEDS ORDERED: MECL-86 PO (23:21)
[2023-12-13] MEDS ORDERED: BRIL90TA PO (23:21)
[2023-12-13] MEDS ORDERED: HOME MED LIST COMPLETE! XX SCH (23:25)
[2023-12-14] VITALS (7 sets, daily range): BP systolic 111–150; BP diastolic 68–93; TEMP 96–97.9; O2SAT 91–98
[2023-12-14] MEDS ORDERED: ACETAMINOPHEN TAB 650MG DOSE (2X325MG) PO PRN
[2023-12-14 00:13] LABS: HEMATOCRIT 37.7 % (42.0-52.0); HEMOGLOBIN 12.9 g/dl (13.5-17.5); MEAN CORPUSCULAR HEMOGLOBIN 31.6 pg (27.0-33.0); MEAN CORPUSCULAR HGB CONC 34.2 g/dl (32.0-36.5); MEAN CORPUSCULAR VOLUME 92.4 fl (80.0-96.0); PLATELET COUNT, AUTOMATED 265 10^3/uL (150-450); RED BLOOD COUNT 4.08 10^6/uL (4.30-6.10); WHITE BLOOD COUNT 17.8 10^3/uL (4.0-10.0)
[2023-12-14] MEDS: KCL 20MEQ in NS 1000ML 1,000 ML IV SCH (00:51)
[2023-12-14] MEDS: PIPERACILLIN/TAZOBACTAM SOD 3.375 GM in D5W MINI-BAG PLUS 50 ML IV SCH (02:29)
[2023-12-14 06:13] LABS: HEMOGLOBIN 12.9 g/dl (13.5-17.5); MEAN CORPUSCULAR HEMOGLOBIN 31.5 pg (27.0-33.0); MEAN CORPUSCULAR HGB CONC 33.9 g/dl (32.0-36.5); MEAN CORPUSCULAR VOLUME 92.9 fl (80.0-96.0); PLATELET COUNT, AUTOMATED 247 10^3/uL (150-450); RED BLOOD COUNT 4.09 10^6/uL (4.30-6.10); WHITE BLOOD COUNT 11.2 10^3/uL (4.0-10.0)
[2023-12-14 06:26] LABS: PROCALCITONIN 0.32 ng/ml
[2023-12-14 06:29] LABS: ALBUMIN 3.4 G/DL (3.2-5.2); ALKALINE PHOSPHATASE 107 U/L (46-116); ALT/SGPT 36 U/L (7.0-40); AST/SGOT 19 U/L (<34); BILIRUBIN,TOTAL 0.9 MG/DL (0.3-1.2); BLOOD UREA NITROGEN 13 MG/DL (9-23); CARBON DIOXIDE LEVEL 24 MMOL/L (20-31); CHLORIDE LEVEL 114 MMOL/L (98-107); CREATININE FOR GFR 0.82 MG/DL (0.70-1.30); GLOMERULAR FILTRATION RATE > 60.0 (>49); GLUCOSE, FASTING 91 MG/DL (74-106); MAGNESIUM LEVEL 1.8 MG/DL (1.8-2.4); POTASSIUM SERUM 4.1 MMOL/L (3.5-5.1); SODIUM LEVEL 145 MMOL/L (136-145); TOTAL PROTEIN 6.1 G/DL (5.7-8.2)
[2023-12-14] MEDS: ASPIRIN 81MG ENTERIC TABLET PO SCH (08:47)
[2023-12-14] MEDS: TICAGRELOR 90 MG TABLET (BRILINTA) PO SCH (08:47)
[2023-12-14] MEDS: ENOXAPARIN 40MG/0.4ML SYRINGE (J1650 PER 10MG) SC SCH (08:47)
[2023-12-14] MEDS: FAMOTIDINE 20 MG TAB PO SCH (08:47)
[2023-12-14] MEDS: PANTOPRAZOLE 40MG TAB (PROTONIX) PO SCH (08:47)
[2023-12-14] MEDS: ROSUVASTATIN 10 MG TAB (CRESTOR) PO SCH (20:23)
[2023-12-14] MEDS: SERTRALINE HCL 50 MG TAB PO SCH (20:23)
[2023-12-15 00:51] VITALS: BP 123/58; TEMP 97.2; O2SAT 96
[2023-12-15 02:54] VITALS: BP 157/75; TEMP 97.8; O2SAT 98
[2023-12-15 08:21] VITALS: BP 149/76; O2SAT 96
[2023-12-15 09:19] LABS: AMPHETAMINES LEVEL URINE NEGATIVE (NEGATIVE); BARBITURATES URINE NEGATIVE (NEGATIVE); CANNABINOIDS URINE NEGATIVE (NEGATIVE); PHENCYCLIDINE URINE NEGATIVE (NEGATIVE)
[2023-12-15 09:20] LABS: BENZODIAZEPINES URINE NEGATIVE (NEGATIVE); COCAINE METABOLITE URINE NEGATIVE (NEGATIVE); METHADONE URINE NEGATIVE (NEGATIVE); OPIATES URINE NEGATIVE (NEGATIVE)
[2023-12-15] MEDS ORDERED: LISI20TA33 PO (11:25)
== END 2023-12-15 12:10 | disposition home or self-care (01) | DRG 312 ==
LOC: M ED 19:35 → M ED INP 12-14 → M PCU 12-14 03:39
PROVIDERS: ADMIT Preventive Medicine Undersea and Hyperbaric Medicine; ATTEND Internal Medicine
DX: I95.2 Hypotension due to drugs (principal); E87.20 Acidosis, unspecified; K21.9 Gastro-esophageal reflux disease without esophagitis; J44.9 Chronic obstructive pulmonary disease, unspecified; I10 Essential (primary) hypertension; E78.00 Pure hypercholesterolemia, unspecified; E78.5 Hyperlipidemia, unspecified; Z86.73 Personal history of transient ischemic attack (TIA), and cerebral infarction without residual deficits; Z79.82 Long term (current) use of aspirin; Z79.899 Other long term (current) drug therapy; F17.210 Nicotine dependence, cigarettes, uncomplicated; Z77.090 Contact with and (suspected) exposure to asbestos; Z86.15 Personal history of latent tuberculosis infection

== ENCOUNTER → 2024-01-25 | Outpatient (REF) | payer MEDICARE ==
[~2024-01-25] MED LIST changes: +ASPI81TA26 PO; +BRIL90TA PO; -DOXY-323 PO; +DOXY-441 PO; +LISI20TA33 PO; +MECL-86 PO; +ROSU40TA81 PO
[2024-01-25 17:09] LABS: BASO # 0.1 10^3/uL (0.0-0.2); BASO % 0.8 % (0.0-1.0); EOS # 0.3 10^3/uL (0.0-0.5); EOS % 3.1 % (0.0-3.0); HEMATOCRIT 43.1 % (42.0-52.0); HEMOGLOBIN 14.2 g/dl (13.5-17.5); LYMPH # 2.5 10^3/uL (1.5-5.0); LYMPH % 27.7 % (24.0-44.0); MEAN CORPUSCULAR HEMOGLOBIN 32.1 pg (27.0-33.0); MEAN CORPUSCULAR HGB CONC 32.9 g/dl (32.0-36.5); MEAN CORPUSCULAR VOLUME 97.3 fl (80.0-96.0); MONO # 0.7 10^3/uL (0.0-0.8); MONO % 7.6 % (2.0-8.0); NEUTROPHILS # 5.4 10^3/uL (1.5-8.5); NEUTROPHILS % 60.5 % (36.0-66.0); PLATELET COUNT, AUTOMATED 294 10^3/uL (150-450); RED BLOOD COUNT 4.43 10^6/uL (4.30-6.10)
[2024-01-25 17:36] LABS: ALBUMIN 3.9 G/DL (3.2-5.2); ALKALINE PHOSPHATASE 118 U/L (40-129); ALT/SGPT 28 U/L (7.0-40); AST/SGOT 15 U/L (<34); BILIRUBIN,DIRECT 0.3 MG/DL (<0.4); BILIRUBIN,TOTAL 0.7 MG/DL (0.3-1.2); BLOOD UREA NITROGEN 13 MG/DL (9-23); CALCIUM LEVEL 9.6 MG/DL (8.3-10.6); CARBON DIOXIDE LEVEL 31 MMOL/L (20-31); CHLORIDE LEVEL 106 MMOL/L (98-107); CREATININE FOR GFR 0.74 MG/DL (0.70-1.30); GLOMERULAR FILTRATION RATE > 60.0 (>49); GLUCOSE, FASTING 90 MG/DL (74-106); POTASSIUM SERUM 4.4 MMOL/L (3.5-5.1); SODIUM LEVEL 143 MMOL/L (136-145); TOTAL PROTEIN 7.4 G/DL (5.7-8.2)
== END ==
LOC: M LAB REF 16:45
PROVIDERS: ATTEND Nurse Practitioner Family
DX: I63.50 Cerebral infarction due to unspecified occlusion or stenosis of unspecified cerebral artery (principal); Z86.15 Personal history of latent tuberculosis infection; R91.8 Other nonspecific abnormal finding of lung field; I10 Essential (primary) hypertension

== ENCOUNTER → 2024-06-30 | Outpatient (CLI) | payer MEDICARE, OTHER ==
[~2024-06-30] MED LIST changes: +ALBU8.5H INH; +CLOP75TA2 PO
== END ==
LOC: M RAD 07:45
PROVIDERS: ATTEND Nurse Practitioner Family
DX: I77.819 Aortic ectasia, unspecified site (principal); Z12.0 Encounter for screening for malignant neoplasm of stomach; F17.210 Nicotine dependence, cigarettes, uncomplicated; Z13.6 Encounter for screening for cardiovascular disorders

== ENCOUNTER → 2024-06-30 | Outpatient (CLI) | payer MEDICARE | LOC: M RAD 07:32 | PROVIDERS: ATTEND Nurse Practitioner Family | DX: F17.210 Nicotine dependence, cigarettes, uncomplicated (principal); I77.819 Aortic ectasia, unspecified site; Z12.0 Encounter for screening for malignant neoplasm of stomach; Z13.6 Encounter for screening for cardiovascular disorders ==

== ENCOUNTER → 2024-12-08 | Outpatient (CLI) | payer MEDICARE ==
[~2024-12-08] MED LIST changes: +AMOX875T2 PO; +CEFD1CAP9 PO; +E-Z-GAS II EFFERVESCENT PACKET (SODIUM BICARB./CITRIC ACID/SIMETHICONE) As Ordered ONE; +E-Z-HD 98% w/w 340 GM SUSP BTL As Ordered ONE; +E-Z-PAQUE 96% w/w SUSP 176 GM BTL As Ordered ONE; -IBUP-1022 PO; +IBUP600T42 PO; +LISI40TA10 PO; -LISI40TA4 PO; +OCUF0.25 OP; +PANT20TA6 PO
== END ==
LOC: M RAD 07:35
PROVIDERS: ATTEND Surgery
DX: R10.84 Generalized abdominal pain (principal)

== ENCOUNTER 2024-12-29 08:08 | Emergency (ER) | payer MEDICARE ==
[~2024-12-29] VITALS: Ht 172.7 cm; Wt 84.7 kg
[~2024-12-29 08:08] MED LIST changes: -E-Z-GAS II EFFERVESCENT PACKET (SODIUM BICARB./CITRIC ACID/SIMETHICONE) As Ordered ONE; -E-Z-HD 98% w/w 340 GM SUSP BTL As Ordered ONE; -E-Z-PAQUE 96% w/w SUSP 176 GM BTL As Ordered ONE
[2024-12-29] MEDS: ONDANSETRON 4MG ORAL DISINTEGRATING TAB PO ONE (08:39)
[2024-12-29] MEDS ORDERED: FAMO40TA3 PO (09:12)
[2024-12-29] MEDS ORDERED: HOME MED LIST COMPLETE! XX SCH (09:15)
[2024-12-29 09:20] VITALS: BP 138/71; TEMP 98.5; O2SAT 98
[2025-01-03] MEDS ORDERED: METR-265 PO (18:23)
[2025-01-03] MEDS ORDERED: CEFD1CAP9 PO (18:23)
== END 2024-12-29 09:31 | disposition home or self-care (01) ==
LOC: M ED 08:08
DX: S40.012A Contusion of left shoulder, initial encounter (principal); W01.198A Fall on same level from slipping, tripping and stumbling with subsequent striking against other object, initial encounter; M19.012 Primary osteoarthritis, left shoulder; I10 Essential (primary) hypertension; K21.9 Gastro-esophageal reflux disease without esophagitis; F17.200 Nicotine dependence, unspecified, uncomplicated; Z86.79 Personal history of other diseases of the circulatory system; Y92.009 Unspecified place in unspecified non-institutional (private) residence as the place of occurrence of the external cause; Y93.89 Activity, other specified; Y99.9 Unspecified external cause status; Z79.52 Long term (current) use of systemic steroids; Z79.82 Long term (current) use of aspirin; Z79.899 Other long term (current) drug therapy

== ENCOUNTER 2025-01-26 19:26 | Emergency (ER) | payer MEDICARE ==
[~2025-01-26] VITALS: Ht 172.7 cm; Wt 83.4 kg
[~2025-01-26 19:26] MED LIST changes: +FAMO40TA3 PO; +METR-265 PO
[2025-01-26 19:29] VITALS: BP 132/60; TEMP 98.3; O2SAT 98
[2025-01-27] MEDS ORDERED: PRED10TA2 PO (13:40)
== END 2025-01-27 00:30 | disposition left against medical advice (07) ==
LOC: M ED 19:26
DX: T85.510A Breakdown (mechanical) of bile duct prosthesis, initial encounter (principal); I10 Essential (primary) hypertension; E78.5 Hyperlipidemia, unspecified; K21.9 Gastro-esophageal reflux disease without esophagitis; Z86.79 Personal history of other diseases of the circulatory system; Z79.52 Long term (current) use of systemic steroids; Z79.899 Other long term (current) drug therapy; Z79.2 Long term (current) use of antibiotics; Z79.82 Long term (current) use of aspirin; Z53.9 Procedure and treatment not carried out, unspecified reason; J44.1 Chronic obstructive pulmonary disease with (acute) exacerbation; I44.4 Left anterior fascicular block; F32.9 Major depressive disorder, single episode, unspecified
CPT/HCPCS: 71045; 80048; 80076; 85025; 87486; 87581; 87633; 87798; 93005; 93041; 94760; 96374; 99283; 99285; J2919

== ENCOUNTER 2025-01-27 11:40 | Emergency (ER) | payer MEDICARE ==
[~2025-01-27] VITALS: Ht 172.7 cm; Wt 77.3 kg
[2025-01-27 12:22] LABS: BASO # 0.0 10^3/uL (0.0-0.2); BASO % 0.5 % (0.0-1.0); EOS # 0.2 10^3/uL (0.0-0.5); EOS % 2.9 % (0.0-3.0); LYMPH # 1.4 10^3/uL (1.5-5.0); LYMPH % 17.9 % (24.0-44.0); MONO # 0.8 10^3/uL (0.0-0.8); MONO % 9.5 % (2.0-8.0); NEUTROPHILS # 5.4 10^3/uL (1.5-8.5); NEUTROPHILS % 68.7 % (36.0-66.0); PLATELET COUNT, AUTOMATED 247 10^3/uL (150-450)
[2025-01-27 12:52] LABS: ALT/SGPT 63 U/L (7.0-40); AST/SGOT 28 U/L (<34); CALCIUM LEVEL 8.5 MG/DL (8.3-10.6); CARBON DIOXIDE LEVEL 24 MMOL/L (20-31); CHLORIDE LEVEL 106 MMOL/L (98-107); CREATININE FOR GFR 0.76 MG/DL (0.70-1.30); GLOMERULAR FILTRATION RATE > 90.0 (>49); POTASSIUM SERUM 3.8 MMOL/L (3.5-5.1); SODIUM LEVEL 141 MMOL/L (136-145)
[2025-01-27] MEDS ORDERED: PRED10TA2 PO (13:40)
[2025-01-27 14:03] VITALS: BP 107/60; TEMP 96.7; O2SAT 96
== END 2025-01-27 14:10 | disposition home or self-care (01) ==
LOC: M ED 11:40 → EDBD 11:40 → M ED 14:10
DX: J44.1 Chronic obstructive pulmonary disease with (acute) exacerbation (principal); I44.4 Left anterior fascicular block; K21.9 Gastro-esophageal reflux disease without esophagitis; F32.9 Major depressive disorder, single episode, unspecified; Z86.79 Personal history of other diseases of the circulatory system; Z79.52 Long term (current) use of systemic steroids; Z79.82 Long term (current) use of aspirin; Z79.899 Other long term (current) drug therapy; Z79.2 Long term (current) use of antibiotics

== ENCOUNTER → 2025-01-30 | Outpatient (CLI) | payer MEDICARE ==
[~2025-01-30] MED LIST changes: +ISOVUE-300 61% 100 ML VIAL As Ordered ONE; +ISOVUE-300 61% 100 ML VIAL IV SCH; +LIDOCAINE 1% MDV 20 ML VIAL As Ordered ONE; +LIDOCAINE 1% MDV 20 ML VIAL SC SCH; +PRED10TA2 PO; +SODIUM CHLORIDE 0.9% 1000 ML XX SCH
[2025-01-30 07:30] VITALS: TEMP 99.4
[2025-01-30 08:13] VITALS: BP 124/64; O2SAT 95
== END ==
LOC: M IRPRO 07:01
PROVIDERS: ATTEND Radiology Diagnostic Radiology
DX: K81.0 Acute cholecystitis (principal)
CPT/HCPCS: 47531; 76000; Q9967